=== PATIENT | female | born 1990 | race Caucasian/White ===

== ENCOUNTER 2020-07-16 07:52 | Outpatient (REF) | payer OTHER, SELFPAY ==
[2020-07-17 09:23] LABS: BV Int Neg Control Negative (Negative); BV Int Pos Control Positive (Positive)
[2020-07-17 11:41] LABS: C. trachomatis RNA TMA NOT DETECTED (NOT DETECTED); N. gonorrhoeae RNA TMA NOT DETECTED (NOT DETECTED)
== END 2020-07-16 07:53 | disposition home or self-care (01) ==
LOC: HO.LAB 07:52
PROVIDERS: PCP Internal Medicine; Visit Provider Advanced Practice Midwife
DX: Z01.419 Encounter for gynecological examination (general) (routine) without abnormal findings (principal); N89.8 Other specified noninflammatory disorders of vagina; E66.9 Obesity, unspecified; Z68.31 Body mass index [BMI] 31.0-31.9, adult; Z86.69 Personal history of other diseases of the nervous system and sense organs; Z20.2 Contact with and (suspected) exposure to infections with a predominantly sexual mode of transmission
CPT/HCPCS: 36415; 87480; 87491; 87510; 87591; 87660; 88142

== ENCOUNTER 2020-12-14 09:15 | Outpatient (REF) | payer OTHER, SELFPAY | END 2020-12-14 09:16 | disposition home or self-care (01) | LOC: HO.LAB 09:15 | PROVIDERS: Visit Provider Nurse Practitioner Family | DX: N39.0 Urinary tract infection, site not specified (principal) | CPT/HCPCS: 87086 ==

== ENCOUNTER 2021-07-18 08:15 | Outpatient (REF) | payer OTHER, SELFPAY ==
[2021-07-18 15:32] LABS: CT PCR NOT DETECTED (Not Detect.)
[2021-07-18 15:33] LABS: NG PCR NOT DETECTED (Not Detect.)
[2021-07-19 09:41] LABS: BV Int Neg Control Negative (Negative); BV Int Pos Control Positive (Positive)
== END 2021-07-18 08:16 | disposition home or self-care (01) ==
LOC: HO.LAB 08:15
PROVIDERS: PCP Internal Medicine; Visit Provider Advanced Practice Midwife
DX: Z01.411 Encounter for gynecological examination (general) (routine) with abnormal findings (principal); N89.8 Other specified noninflammatory disorders of vagina
CPT/HCPCS: 87480; 87491; 87510; 87591; 87660

== ENCOUNTER 2021-12-09 17:01 | Outpatient (REF) | payer OTHER, SELFPAY ==
[2021-12-10 09:11] LABS: BV Int Neg Control Negative (Negative); BV Int Pos Control Positive (Positive)
== END 2021-12-09 17:02 | disposition home or self-care (01) ==
LOC: HO.HMGCLNP 17:01
PROVIDERS: Visit Provider Physician Assistant
DX: N39.0 Urinary tract infection, site not specified (principal)
CPT/HCPCS: 87086; 87480; 87510; 87660

== ENCOUNTER 2022-07-31 09:24 | Outpatient (REF) | payer OTHER, SELFPAY ==
[2022-07-31 18:38] LABS: CT PCR NOT DETECTED (Not Detect.); NG PCR NOT DETECTED (Not Detect.)
[2022-08-01 11:14] LABS: BV Int Neg Control Negative (Negative); BV Int Pos Control Positive (Positive)
[2022-08-02 03:19] LABS: HPV mRNA E6/E7 rflx Detected (Not Detected)
[2022-08-16 07:54] LABS: HPV 16 RNA NOT DETECTED (NOT DETECTED)
== END 2022-07-31 09:25 | disposition home or self-care (01) ==
LOC: HO.LNP 09:24
PROVIDERS: PCP Internal Medicine; Visit Provider Advanced Practice Midwife
DX: Z01.419 Encounter for gynecological examination (general) (routine) without abnormal findings (principal); E66.9 Obesity, unspecified; Z86.69 Personal history of other diseases of the nervous system and sense organs; Z20.2 Contact with and (suspected) exposure to infections with a predominantly sexual mode of transmission
CPT/HCPCS: 0353U; 87480; 87510; 87624; 87625; 87660; 88142

== ENCOUNTER 2022-09-04 14:02 | Outpatient (REF) | payer OTHER, SELFPAY ==
[2022-09-05 04:09] LABS: Syphilis Screen Nonreactive (Nonreactive)
[2022-09-05 04:47] LABS: HBsAGNum1 0.33 S/CO (0.00-0.99); HIV AB/AG Nonreactive (Nonreactive); HIV Num 1 0.07 S/CO (0.00-0.99); Hepatitis B Surface Antigen Negative (Negative); ~HepC Num1 0.12 S/CO (0.00-0.79); ~Hepatitis C Antibody Nonreactive (Nonreactive)
== END 2022-09-04 14:03 | disposition home or self-care (01) ==
LOC: HO.LAB 14:02
PROVIDERS: PCP Internal Medicine; Visit Provider Advanced Practice Midwife
DX: Z11.4 Encounter for screening for human immunodeficiency virus [HIV] (principal); E66.9 Obesity, unspecified; Z86.69 Personal history of other diseases of the nervous system and sense organs
CPT/HCPCS: 36415; 86780; 86803; 87340; 87389

== ENCOUNTER 2022-09-17 13:43 | Outpatient (REF) | payer OTHER, SELFPAY ==
--- NOTE | ~2022-09-17 | MM_ITS ---
EXAMINATION: MM DIAGNOSTIC DIGITAL BREAST TOMOSYNTHESIS, BILATERAL US DIAGNOSTIC ULTRASOUND BREAST, LEFT CLINICAL INFORMATION: 31-year-old with 6 month history palpable concern anterior upper inner left breast. Some intermittent pain and tenderness with menses. No erythema. No discharge. Family history breast cancer maternal grandmother, maternal aunt. The lifetime risk of breast cancer based on the Tyrer-Cuzick Model is 23%. COMPARISON: No prior mammography. Comparison made with prior diagnostic right breast ultrasound 01/09/2020. TECHNIQUE: Digital breast tomosynthesis is performed in both the craniocaudal and mediolateral oblique views along with computer-aided detection (CAD). Synthesized 2D images are generated from the tomosynthesis. Ultrasound left breast is targeted to the area of clinical concern upper inner quadrant. Grayscale imaging and color Doppler are performed without and with harmonics. Patient is able to point to area of concern at time of imaging. FINDINGS: Mammography: The breasts are heterogeneously dense, which may obscure small masses (ACR BI-RADS breast composition Category c). There is a smooth oval circumscribed 1 cm nodular asymmetry medial left breast on CC tomography corresponding to the area of palpable concern. The remainder the bilateral breasts show no significant mass, architectural abnormality, or abnormal calcifications. The axilla and skin contours are unremarkable. No skin thickening or coarsening of the Heriberto's ligaments. Ultrasound: Ultrasound demonstrates a solid oval circumscribed macrolobulated nodule near site of clinical palpable concern and corresponding to the mammographic finding 9:00 position 4 cm from nipple measuring approximately 1.2 x 0.6 x 1.1 cm. Long axis is parallel with the skin. There is no increased or decreased through transmission of sound. There is some scattered internal color flow. Finding most likely represents a fibroadenoma. There is a dominant simple cyst adjacent to the probable fibroadenoma measuring approximately 2.0 x 1.5 cm. This has a branching component measuring approximately 1.5 x 1.1 cm. The cysts show increased through-transmission of sound and no associated color flow. There are other smaller scattered simple cysts in the interrogated areas under 1 cm. No skin thickening or edema tracking in soft tissue planes. Results and management options are discussed with the patient at time of visit. MM/MM tomosynthesis diagnostic BI IMPRESSION: Left: -Solid mass upper inner quadrant near area of palpable concern likely fibroadenoma measuring 1.2 cm. -Scattered simple cysts left breast, largest adjacent to probable fibroadenoma) measuring 2 cm. Right: -No mammographic evidence of malignancy. ASSESSMENT: BI-RADS 3: Probably Benign RECOMMENDATION: Targeted left breast ultrasound in 6 months. This patient's information was entered into a reminder system with a target due date for their next mammogram.
== END 2022-09-17 13:44 | disposition home or self-care (01) ==
LOC: HO.MAMMO 13:43
PROVIDERS: PCP Internal Medicine; Visit Provider Advanced Practice Midwife
DX: N64.89 Other specified disorders of breast (principal)
CPT/HCPCS: 76642; 77062; 77066

== ENCOUNTER 2023-02-24 10:58 | Outpatient (AMB) | payer OTHER, SELFPAY ==
--- NOTE | 2023-02-24 13:32 | MHC.OFFWIV ---
Intake Vital Signs 02/24/23 13:34 Weight 202 lb BP 110/70 Blood Pressure Location Rt brachial Position Sitting Pulse 86 Pulse Source Pulse Oximeter Temp 98.1 F Temp Source Oral Pulse Oximetry (%) 96 Oxygen Delivery Method Room Air Intake Visit Reasons: EP, sore throat, cough, chest tightness Intake Note: Patient here for cough, sore throat and difficulty breathing. She states symptoms started yesterday. Patient Tobacco Use Status: Never used Tobacco Allergies sulfamethoxazole Allergy (Unknown, Verified 02/24/23 13:33) Unknown Do you need a note to return to daycare/school/sports/work: No HPI HPI Comments History of Present Illness Details 32-year-old female who presents sore throat difficulty swallowing. Denies fever chills does endorse some mild shortness of breath. 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[employer] Sexual 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/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 Gender identity: Female Cognitive needs: No Hearing needs: No Vision needs: No Female Reproductive History Menstrual Age of Menarche: 14 Review of Systems ENT Reports sore throat Resp Reports cough Physical Exam Vital Signs: Last Vital Signs Temp 98.1 F 02/24/23 13:34 Pulse 86 02/24/23 13:34 BP 110/70 02/24/23 13:34 Pulse Ox 96 02/24/23 13:34 Oxygen Delivery Method Room Air 02/24/23 13:34 Const General: healthy appearing, comfortable, no acute distress and alert Orientation/consciousness: patient oriented x3 Limitations: no limitations HEENT Other: Stridor uvula midline mild erythema the posterior pharynx no muffled voice Head: Yes normal to inspection Ears: hearing grossly normal bilaterally Resp Effort & Inspection: normal respiratory effort and able to speak in complete sentences Auscultation: clear to auscultation bilaterally Cardio Rate: regular rate Skin General skin exam: no rashes or lesions noted Neuro General: patient oriented x3 Extrem General: Yes normal to inspection Results AMB Rapid Strep AMB Rapid Strep Negative Last Edit by YAYA Jimenez on 02/24/23 13:43 Results Reviewed Results Reviewed: Laboratory Last Values Strep Scn Rapid Clinic Negative 02/24/23 13:40 Assessment & Plan Assessment & Plan (1) Pharyngitis: Code(s): J02.9 - Acute pharyngitis, unspecified Qualifiers: Pharyngitis/tonsillitis etiology: unspecified etiology Qualified Code(s): J02.9 - Acute pharyngitis, unspecified Plan: VSS. exam notable for Stridor uvula midline mild erythema the posterior pharynx no muffled voice. Rapid strep negative. Recommend continue symptomatic treatment Discharge instructions, follow up and treatment are discussed with patient in my usual fashion. Alternatives in treatment are also discussed. The patient will return for worsening symptoms or as needed. Advised that any labs/imaging ordered will be followed up on and contact made if further treatment needed. Counseled that patient's condition may require further evaluation and/or treatment. Symptoms of concern for worsening disorder discussed in detail in my customary manner. Patient does verbalize understanding of the plan, there are no apparent barriers to communication. The patient is given the opportunity to ask questions and have them answered to his/her satisfaction Orders: Orders AMB Rapid Strep Screen 02/24/23 Z13.9 - Encounter for screening, unspecified Medications: New albuterol sulfate 90 mcg/actuation 2 puffs inhalation Q6H PRN 6.7 grams 0RF shortness of breath or wheezing dexamethasone 10 mg (5 x 2 mg) PO DAILY 1 day 5 tabs 0RF benzonatate 100 mg PO BID PRN 10 caps 0RF cough Coding Level of Care Code Est Pt Level 3 (31440) Diagnoses Pharyngitis, unspecified etiology J02.9 Pharyngitis/tonsillitis etiology: unspecified etiology
[2023-02-24 13:34] VITALS: BP 110/70; PULSE 86; TEMP 36.7; O2SAT 96
== END 2023-02-24 13:58 | disposition home or self-care (01) ==
PROVIDERS: PCP Internal Medicine; Visit Provider Physician Assistant
DX: J02.9 Acute pharyngitis, unspecified (principal)
CPT/HCPCS: 87880; 99213

== ENCOUNTER 2023-03-25 11:20 | Outpatient (REF) | payer OTHER, SELFPAY ==
--- NOTE | ~2023-03-25 | US_ITS ---
EXAMINATION: US DIAGNOSTIC ULTRASOUND BREAST, LEFT CLINICAL INFORMATION: Follow-up cyst and solid nodule left breast approximate 9:00 axis. COMPARISON: 09/17/2022 ultrasound left breast. 09/17/2022 mammography. TECHNIQUE: Ultrasound of the breast is performed with real-time camara scale imaging and color Doppler. Attention was given to the 9:00 axis to follow-up previous findings. FINDINGS: There is a simple cyst present measuring 8 mm in diameter, significantly smaller than previously, where it measured approximately 2.0 cm. This is benign and no further follow-up recommended. Abutting the simple cyst is a circumscribed mildly hypoechoic oval mass, measuring 1.2 x 0.6 x 1.2 cm (previously measuring 1.1 x 0.6 x 1.1 cm. Apparent enlargement is minimal and most likely reflects differences in measurement technique. It appears stable grossly. It has through transmission, and no internal color Doppler signal. It is well-circumscribed. This has features most suggestive of benign fibroadenoma or variant. It remains unchanged. US/US breast LT limited mamm only IMPRESSION: No significant interval change in the probably benign fibroadenoma or variant in the 9:00 axis of the right breast as detailed. 1 year interval follow-up diagnostic ultrasound recommended to ensure stability. ASSESSMENT: BI-RADS 3: Probably Benign RECOMMENDATION: Diagnostic mammography at time of next annual exam, due in 12 months. This patient's information was entered into a reminder system with a target due date for their next mammogram.
== END 2023-03-25 11:21 | disposition home or self-care (01) ==
LOC: HO.MAMMO 11:20
PROVIDERS: PCP Internal Medicine; Visit Provider Internal Medicine
DX: R92.2 Inconclusive mammogram (principal)
CPT/HCPCS: 76642

== ENCOUNTER → 2023-03-25 11:30 | Outpatient (BNV) | payer OTHER, SELFPAY | PROVIDERS: PCP Internal Medicine; Visit Provider Radiology Diagnostic Radiology | DX: D24.2 Benign neoplasm of left breast (principal) | CPT/HCPCS: 76642 ==

== ENCOUNTER 2023-05-15 08:55 | Outpatient (REF) | payer OTHER, SELFPAY ==
[2023-05-20 12:44] LABS: CT PCR NOT DETECTED (Not Detect.); NG PCR NOT DETECTED (Not Detect.)
== END 2023-05-15 08:56 | disposition home or self-care (01) ==
LOC: HO.LNP 08:55
PROVIDERS: PCP Internal Medicine; Visit Provider Advanced Practice Midwife
DX: N93.0 Postcoital and contact bleeding (principal)
CPT/HCPCS: 0353U

== ENCOUNTER → 2023-05-15 08:55 | Outpatient (AMB) | payer OTHER, SELFPAY ==
--- NOTE | 2023-05-15 08:56 | A.OFFVIS_ITS ---
Intake Vital Signs 05/15/23 08:57 Height 5 ft 8 in Weight 201 lb BMI 30.6 BP 112/68 Intake Visit Reasons: ? yeast Intake Note: lingering cramping and feeling wet and moist with a slight odor and last time having intercourse she started bleeding a lot. 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 yeast HPI Details Patient is here because she has and unusual discharge for her that has a little bit of an odor it did have an worse odor previous and she did have much more of it just sort of feels wet. There was 1 episode after her. In this month when she was having intercourse and it was painful and she bled after it she actually also remembers that she was having some kind of cramping feeling as the intercourse was proceeding she has had sex since with no difficulty since she is wondering about BV but is open to testing for all STIs she is not having any vaginal itching or burning that would be consistent with yeast at all if she does get a prescription for an antibiotic she is requesting a prescription for yeast because she often gets yeast after treatment with antibiotics. She is not contraceptive thing she is open to sometime in the future she and her boyfriend are talking about it and currently using withdrawal and her happy with that. 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[place] Sexual 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/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 Gender identity: Female Cognitive needs: No Hearing needs: No Vision needs: No Female Reproductive History Menstrual Age of Menarche: 14 Duration of menses: 6-7 days Date of last menstrual period: 04/20/23 control method: none Total pregnancies: 0 Date of last pap smear: 07/31/22 (+HPV) History of abnormal pap smear: Yes Physical Exam Vital Signs: Last Vital Signs BP 112/68 05/15/23 08:57 BMI result Body Mass Index 30.6 Other: Slightly adherent whitish discharge that could either be normal for luteal phase or consistent with mild BV as well. Nulliparous cervix pink did not bleed no other areas that appear to be friable. Cervix nulliparous long close thick mobile uterus midposition mobile nontender not enlarged adnexa nontender good tone with Kegel. External Female Exam: normal external appearance Speculum Exam - Vagina: normal appearance of the vagina and normal vaginal discharge Speculum Exam - Cervix: normal appearance of the cervix Bimanual exam- vagina & uterus: normal bimanual exam, uterine size normal, consistency normal, uterine mobility normal, uterine shape normal and non-tender Bimanual Exam- Adnexa, other: normal adnexae, no masses and No adnexal tenderness Assessment & Plan Assessment & Plan (1) Cervical cancer screening: Comment: Negative Pap 2014 2017 2020, ? Whitish spots on cervix 07/31/2022 Pap with HPV co testing done., HPV is positive, but Pap is negative-per [facility] she should repeat her Pap next year. Code(s): Z12.4 - Encounter for screening for malignant neoplasm of cervix (2) Screen for sexually transmitted diseases: Code(s): Z11.3 - Encounter for screening for infections with a predominantly sexual mode of transmission (3) Problematic vaginal discharge: Code(s): N89.8 - Other specified noninflammatory disorders of vagina (4) Bleeding after intercourse: Comment: One time mid May 09, it was also painful that 1 time only. Code(s): N93.0 - Postcoital and contact bleeding Plan ---Discussed the current research around the phenomena of bacterial vaginosis, and the many factors involved in the increase and change in the prevalence of certain bacteria in the vagina, that contribute to the clingy discharge, the fishy malodor, and the discomfort, that many women experience very frequently in their lives. Discussed the many factors that can promote it, and current thinking about best options for treatment of both the a 1 time episode, or frequently occurring episodes. Discussed the role of partner condom use. Discussed that previously, treatment was recommended for both partners, but is not currently recommended today in 2020. Discussed the testing involved. Discussed treatment options including Flagyl, metronidazole gel, boric acid capsules and others. Discussed our normal vaginal mikey and the wide variety of abundant bacteria and fungus I and mucus components that may get up in a complex changing environment responding to anything that we put in and substances we may use for cleansing or wiping as well as sexual intercourse and any introduced bacteria and viruses. Discussed the hormonal shifts that happen through a normal menstrual cycle contributing to changes in the vaginal discharge from clear after the the. To clear and white slippery and abundant like egg white around the time of ovulation, followed by a thickening and drying of the scant white mucus afterwards until a new. Comes. All of these changes are responding to the hormonal shifts in our cycle. Also discussed the limitations of our testing, which are testing for the DNA of the following microbes. Currently, one of the tests we have includes a test that tests for Gardnerella, phoenix, and trichomoniasis (which is an STD). The other test we use tests concurrently for the presence of chlamydia and gonorrhea. As both of these are not normal vaginal mikey, but instead are only sexually transmitted they are in fact in STD or STI, and do need to be treated as well as the partner needs to be treated The presence of Gardnerella does not necessarily mean that we have bacterial vaginosis but the syndrome of bacterial vaginosis includes the creamy adherent discharge that clings to the epithelial cells of the vaginal wall and coats the cells with bacteria and Im part fishy odor when the pH of the environment is altered by either menstrual flow urine or semen or other products. If this discharge is also accompanied by itching and discomfort and any other symptoms than it is worth treating . The presence of Phoenix alone does not necessarily mean a yeast infection but if there is itching burning vaginal redness and irritation then then that is an indication of a yeast infection and is definitely worth treating. Both of these conditions can be in part prevented by use of cotton under clothing, avoidance of tight clothing in general allowing air to vaginal areas and vulva avoidance of other soaps and scented products and chemicals, and condom use. In addition avoidance of menstrual sanitary products like pads and panty liners can contribute to better health as well. full discussion of all of the above she was completely nontender on exam today and there was nothing very obvious since this is the holiday weekend I am offering her the treatment of treating her for bacterial vaginosis and I offered her the choice of treatment as well. In her experience when she has been on any antibiotic in the past she has ended up with a yeast infection so she is requesting a prescription for Diflucan in case she did it gets it but she will not use it unless she really has symptoms of a yeast infection. She goes into [facility] all day long so is not comfortable with cream type treatments because it will increase the mass for her. Also we discussed her history of HPV on the Pap smear and follow-up for that and she is going to [place] so double-check whether not she got the Gardasil vaccine even though she now has the HPV virus and we will see her when she is due for her annual and repeat the Pap with Co testing them. I recommend condoms for at least the next couple of weeks she and her partner have been using withdrawal they are beginning the discussion of being open to . Orders: Orders CT NG by PCR Today N93.0 - Postcoital and contact bleeding Bacterial Vaginosis Panel Today N93.0 - Postcoital and contact bleeding Medications: New fluconazole may repeat second dose 72 hrs after first dose if symptoms persist 150 mg PO Q3D 2 doses 2 tabs 0RF metronidazole 500 mg PO Q12H 14 tabs 0RF Coding Level of Care Code Est Pt Level 3 (45201) Diagnoses Cervical cancer screening Z12.4 Screen for sexually transmitted diseases Z11.3 Problematic vaginal discharge N89.8 Bleeding after intercourse N93.0
[2023-05-15 08:57] VITALS: BP 112/68; BMI 30.6
== END ==
LOC: HO.HWSM 08:55
PROVIDERS: PCP Internal Medicine; Visit Provider Advanced Practice Midwife
DX: Z12.4 Encounter for screening for malignant neoplasm of cervix (principal); Z11.3 Encounter for screening for infections with a predominantly sexual mode of transmission; N89.8 Other specified noninflammatory disorders of vagina; N93.0 Postcoital and contact bleeding
CPT/HCPCS: 99213

== ENCOUNTER 2023-06-26 11:29 | Outpatient (AMB) | payer OTHER, SELFPAY ==
[2023-06-26 11:34] VITALS: BP 122/70; PULSE 82; O2SAT 100; BMI 31.9
--- NOTE | 2023-06-26 11:34 | A.OFFPC_ITS ---
Vital Signs 06/26/23 11:34 Height 5 ft 8 in Weight 210 lb BMI 31.9 BP 122/70 Blood Pressure Location Lt brachial Position Sitting Pulse 82 Pulse Source Pulse Oximeter Pulse Oximetry (%) 100 Oxygen Delivery Method Room Air Intake Visit Reasons: f/u Intake Note: Patient is here to follow up on [symptoms]. Appeals Court Associate Justice Required: No Allergies sulfamethoxazole Allergy (Unknown, Verified 06/26/23 11:59) Unknown Medication List - Last Reconciled 06/26/23 by Charlie Naylor MD albuterol sulfate 90 mcg/actuation 2 puffs inhalation Q6H PRN Tobacco use date assessed: 06/26/23 Dental Screening Dental Screen Date: 06/26/23 Did you have a dental visit in the last 12 months?: Yes Did you have a dental problem in the last 6 months where you did not have access to dental care?: No Was dental information given to patient?: Patient has dentist HPI f/u HPI Details Patient comes in today for her follow up visit - was last seen by me over 3 years ago on 12/01/2019 States that she still has on and off migraine headaches but states that her headaches occur mostly just during the days leading up to and during her monthly menstrual periods and hardly bother her during the rest of the month States that she has just been taking OTC Ibuprofen at 400 mg PRN when her headaches occur and often times just sleeps them off States that she feels okay otherwise She denies any headaches or dizziness Denies any chest pains, no SOB No nausea/vomiting, no abdominal pain No change in bowel habits noted PFSH Medical History Obesity (BMI 30-39.9) Asthma Migraine without aura Surgical History No pertinent past surgical history Family History Father Alive and well Mother Hypertension Maternal Grandmother Breast cancer Maternal Aunt Breast cancer Maternal Grandfather Stomach cancer Family/Other Ovarian cancer Social History Alcohol intake: never Patient Tobacco Use Status: Never used Tobacco service: No Current occupational status: employed 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 1. Little interest or pleasure in doing things: not at all 2. Feeling down, depressed, or hopeless: not at all 3. Trouble falling or staying asleep, or sleeping too much: not at all 4. Feeling tired or having little energy: not at all 5. Poor appetite or overeating: not at all 6. Feeling bad about yourself - or that you are a failure or have let yourself or your family down: not at all 7. Trouble concentrating on things, such as reading the newspaper or watching television: not at all 8. Moving or speaking so slowly that other people could have noticed. Or the opposite - being so fidgety or restless that you have been moving around a lot more than usual: not at all 9. Thoughts that you would be better off or of hurting yourself in some way: not at all Total score: 0 Depression Screening Interpretation: Negative Depression Screening Done: Yes 91014 - PHQ-9 Billing: Yes Source: Developed by Drs. Forrest Shelton, Catrina Henderson, Lance Mata and colleagues, with an educational lachelle from [employer]. Thrive Questionnaire Date Thrive assessed: 06/26/23 I am a: Patient What is your living situation today?: I have a steady place to live Within the past 12 months, did the food you bought not last and you didn't have the money to get more?: Never true Within the past 12 months, did you worry whether your food would run out before you got money to buy more?: Never true Do you have trouble paying for medicines?: No Do you have trouble getting transportation to medical appointments?: No Do you have trouble paying your heating and electricity bill?: No Do you have trouble taking care of your child, family member or friend?: No Do you have trouble with day-to-day activities such as bathing, preparing meals, shopping, managing finances, etc.?: No Are you currently unemployed and looking for a job?: No Are you interested in more education?: No Currently or been in a relationship where the following occur: no concerns reported THRIVE Score: 0 AUDIT C Alcohol Use Questionnaire (AUDIT-C) 1. How often do you have a drink containing alcohol?: 2-4 times a month 2. How many drinks containing alcohol do you have on a typical day when you are drinking?: 1 or 2 3. How often do you have six or more drinks on one occasion?: Never Total Score: 2 Score Reviewed/Action Taken: Yes MAX-7 AMB Questionnaire MAX-7 Date MAX - 7 assessed: 06/26/23 Feeling nervous, anxious, or on edge: 0 = Not at all Not being able to stop or control worryin = Not at all Worrying too much about different things: 0 = Not at all Trouble relaxin = Not at all Being so restless that it is hard to sit still: 0 = Not at all Becoming easily annoyed or irritable: 0 = Not at all Feeling afraid as if something awful might happen: 0 = Not at all Total MAX-7 score (0-4 normal; 5-9 mild; 10-14 moderate; 15-21 severe): 0 Source: Developed by Drs. Forrest Shelton, Catrina Henderson, Lance Mata and colleagues, with an educational lachelle from [employer]. Review of Systems Const Denies chills, Denies fatigue, Denies fever(s) and Reports headache(s) (on and off, occurring mostly during her menstrual periods) Eyes Reports photophobia (only when (+) headaches) ENT Denies dysphagia, Denies dizziness, Denies otalgia, Reports headache(s) (on and off, occurring mostly during her menstrual periods), Denies neck pain, Denies odynophagia and Denies sore throat Card Denies chest pain, Denies palpitations and Denies dyspnea Resp Denies cough and Denies dyspnea GI Denies abdominal pain, Denies constipation, Denies dysphagia, Denies heartburn, Denies diarrhea, Reports nausea (occasionally, when her migraine headaches occur), Denies odynophagia and Denies vomiting Denies difficulty voiding, Denies nocturia, Denies dysuria and Denies urinary urgency Musc Denies neck pain Skin/Breast Denies rash Neuro Denies dizziness and Reports headache(s) (on and off, occurring mostly during her menstrual periods) Endo Denies fatigue and Denies palpitations Physical exam (Primary Care) Vital Signs: Last Vital Signs Pulse 82 06/26/23 11:34 BP 122/70 06/26/23 11:34 Pulse Ox 100 06/26/23 11:34 Oxygen Delivery Method Room Air 06/26/23 11:34 BMI result Body Mass Index 31.9 Tobacco/Smoking Status: Tobacco use Status Tobacco use date assessed 06/26/23 06/26/23 11:39 Patient Tobacco Use Status Never used Tobacco 06/26/23 11:39 Depression Screening Interpretation: Negative Thrive Assessment: Date of Thrive Assessment Date Thrive assessed 12/09/21 06/26/23 11:39 Currently or been in a relationship where the following occur: no concerns reported Const General: no acute distress and alert HENMT Ears: TM's normal bilaterally and EAC's normal Throat: Yes posterior oropharynx normal and Yes tonsils normal (no TP congestion) Eyes Direct Ophthalmoscopy: photophobia (only when (+) headaches) Neck Neck: Yes no lymphadenopathy and Yes supple Resp Auscultation: clear to auscultation bilaterally, no rales and no wheezes Cardio Rate: regular rate Rhythm: regular rhythm Heart sounds: no murmurs GI Palpation (GI): Soft to palpation, nontender and No hepatosplenomegaly present Skin General skin exam: no rashes or lesions noted Extrem General: Yes no clubbing, cyanosis or edema Assessment and Plan Assessment & Plan (1) Migraine without aura: Code(s): G43.009 - Migraine without aura, not intractable, without status migrainosus Qualifiers: Status migrainosus presence: without status migrainosus Intractability: not intractable Qualified Code(s): G43.009 - Migraine without aura, not intractable, without status migrainosus Plan: Her migraine headaches seem to be mostly menstrual migraine Will start her on a trial of Fioricet PRN for her headaches (2) Asthma: Code(s): J45.909 - Unspecified asthma, uncomplicated Qualifiers: Asthma severity: mild Asthma persistence: intermittent Asthma complication type: uncomplicated Qualified Code(s): J45.20 - Mild intermittent asthma, uncomplicated Plan: Appears controlled/stable as she hardly has had to use her rescue inhaler Continue Albuterol HFA 1 to 2 inhalations Q 6 hours PRN (3) Obesity (BMI 30-39.9): Code(s): E66.9 - Obesity, unspecified Plan: Reinforced diet/exercise as tolerated/lose weight Plan To return in 4 months for her annual physical examination Have reminded patient to get her labs ordered today done BEFORE she returns for her annual physical in a few months Orders: Orders 2 Lipid Panel 4 Months E78.00 - Pure hypercholesterolemia, unspecified TSH reflex Free T4 4 Months E78.00 - Pure hypercholesterolemia, unspecified, Z00.00 - Encounter for general adult medical examination without abnormal findings Vitamin D 25-OH Total 4 Months E55.9 - Vitamin D deficiency, unspecified, Z00.00 - Encounter for general adult medical examination without abnormal findings Hemoglobin A1c 4 Months E11.9 - Type 2 diabetes mellitus without complications, Z00.00 - Encounter for general adult medical examination without abnormal findings Comprehensive [facility]. Panel Fast 4 Months E78.00 - Pure hypercholesterolemia, unspecified Complete Blood Count Auto Diff 4 Months D64.9 - Anemia, unspecified UA CC w/rflx Micro + Cult 4 Months R30.0 - Dysuria, Z00.00 - Encounter for general adult medical examination without abnormal findings Medications: New qacfbwqgph-vtwvfhprtfatr-uefz 50-300-40 mg (Fioricet) 1 cap PO TID PRN 30 caps 3RF headache Coding Level of Care Code Est Pt Level 3 (59174) Diagnoses Migraine without aura and without status migrainosus, not intractable G43.009 Status migrainosus presence: without status migrainosus Intractability: not intractable Mild intermittent asthma without complication J45.20 Asthma severity: mild Asthma persistence: intermittent Asthma complication type: uncomplicated Obesity (BMI 30-39.9) E66.9
== END 2023-06-26 12:25 | disposition home or self-care (01) ==
PROVIDERS: PCP Internal Medicine; Visit Provider Internal Medicine
DX: G43.009 Migraine without aura, not intractable, without status migrainosus (principal); J45.20 Mild intermittent asthma, uncomplicated; E66.9 Obesity, unspecified; Z68.31 Body mass index [BMI] 31.0-31.9, adult
CPT/HCPCS: 99213

== ENCOUNTER 2023-07-31 08:54 | Outpatient (AMB) | payer OTHER, SELFPAY ==
[2023-07-31 09:07] VITALS: BP 112/66; BMI 31.3
--- NOTE | 2023-07-31 09:07 | A.OFFVIS_ITS ---
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 Her last menstrual period was June 23. This she is very happy and says her 's ecstatic her WILLIAM by her dates would be March 31 and this would make her 5 weeks and 2 days today. She had a little nausea last night she woke up with the cold and is masking. She and her are caring for a 3-month-old foster baby who was exposed to substances and was in the NICU on morphine for a while and they visited with the baby in the NICU and have been home with the baby this week bonding. She says it has a wonderful experience. 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 She is very happy about the she does have lots of questions about what she can take for various things such as colds and what to avoid etc. questions such as hair dye and other things. Has been thinking about where she would go for care and delivery and has been pondering options including [facility] and all options. 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 Salgado for plan/possible removal. Normal vaginal exam with normal clear scant discharge cervix nulliparous friable at os with above polyp which measures about 2 cm extending from os uterus is globular consistent with about 5 weeks gestation midposition nontender adnexa nontender very good muscle tone. External Female Exam: normal external appearance Speculum Exam - Vagina: normal appearance of the vagina and normal vaginal discharge Speculum Exam - Cervix: normal appearance of the cervix Bimanual exam- vagina & uterus: normal bimanual exam, uterine size normal, consistency normal, uterine mobility normal, uterine shape normal and non-tender Bimanual Exam- Adnexa, other: normal adnexae, no masses and No adnexal tenderness Results AMB Test Urine AMB Test Urine Positive Last Edit by WILBUR Solano on 07/31/23 10:04 Results Reviewed Results Reviewed: Laboratory Last Values Tst Clinic Positive 07/31/23 10:01 Name: Cynthia Means Age/Sex: 31/F Attending: Sirena Munoz CNM : 1990 Submitted by: Sirena Munoz CNM Copies to: Charlie Naylor MD MR #: [id number] Status: DEP REF Collected: 07/31/22 Location: [facility].LNP Received: 07/31/22 Interpretation Satisfactory for evaluation. Negative for intraepithelial lesion or malignancy. Inflammation with associated cellular changes. HPV mRNA E6/E7: DETECTED This assay detects E6/E7 viral messenger RNA (mRNA) from 14 high-risk HPV types (16, 18, 31, 33, 35, 39, 45, 51, 52, 56, 58, 59, 66, 68) HPV Type 16 RNA: Not Detected HPV Type 18/45 RNA: Not Detected HPV testing performed by [facility], [place], [place]. See reference laboratory portion of the EMR for entire report. This case was reviewed intradepartmentally. Clinical Information LMP: 07/21/22 Previous PAP test: 2020, WNL Material Received ThinPrep-Cervical Copies To Charlie Naylor MD [address] [facility] [address] [facility] [address] [place], [place] [id number] Sirena Munoz [address] [place] [address] [place] [id number] Electronically Signed By: Leonard Beck MD 08/19/22 [id number] Patient: Cynthia Means Age/Sex: 31/F MR#: [id number] Page 1 of 2 Assessment & Plan Assessment & Plan (1) Bleeding after intercourse: Comment: One time mid May 09, it was also painful that 1 time only. Code(s): N93.0 - Postcoital and contact bleeding (2) Screen for sexually transmitted diseases: Code(s): Z11.3 - Encounter for screening for infections with a predominantly sexual mode of transmission (3) Cervical cancer screening: Comment: Negative Pap 2014 2017 2020, ? Whitish spots on cervix 07/31/2022 Pap with HPV co testing done., HPV is positive, but Pap is negative-per [facility] she should repeat her Pap next year. Code(s): Z12.4 - Encounter for screening for malignant neoplasm of cervix (4) Early stage of : Code(s): Z34.90 - Encounter for supervision of normal , unspecified, unspecified trimester (5) Nausea and vomiting in : Code(s): O21.9 - Vomiting of , unspecified (6) Cervical polyp: Code(s): N84.1 - Polyp of cervix uteri (7) URI (upper respiratory infection): Comment: Started this a.m. patient is masking I recommend getting tested for COVID discussed that if she were positive for COVID she would be a candidate for antiviral treatment and should check with her doctor. Discussed the non- helpfulness of many uxnj-orw-elpccdz treatments and the importance of fluids rest hydration etc. Code(s): J06.9 - Acute upper respiratory infection, unspecified Plan ---Discussed the current research around the phenomena of bacterial vaginosis, and the many factors involved in the increase and change in the prevalence of certain bacteria in the vagina, that contribute to the clingy discharge, the fishy malodor, and the discomfort, that many women experience very frequently in their lives. Discussed the many factors that can promote it, and current thinking about best options for treatment of both the a 1 time episode, or frequently occurring episodes. Discussed the role of partner condom use. ----I reviewed her feelings about the , I reviewed her menstrual hx, and ob hx, and past medical hx. I reviewed goals of eating well, healthy, avoiding toxins and medications. Goals of moderate wt gain, and continuing to be active. Walking is good exercise. She should speak to any other prescribing providers involved in her care to see if any meds that are prescribed should be continued. drinking plenty of water is a good goal. I reviewed normal early symptoms, and next steps involved in care here. I reviewed that now deliveries are taking place elsewhere. ---I reviewed the patient's medical history and risk factors for . I reviewed her menstrual history and regularity, and reviewed the dating of her last menstrual period and other indicators. I reviewed where she is in this , and what to expect in this early stage of the . ---I reviewed the routines of care. I reviewed the options open to her including care here and that delivery does not occur here; it occurs currently at our referring institution.. I also reviewed the options of receiving care and delivery at [facility], and [facility] or [facility], or the [facility] if appropriate. I reviewed high risk factors that would necessitate a transfer of her care to [facility]. ---I reviewed basic good health and ways to achieve a healthy and goals. I reviewed warning signs that would necessitate calling us: for instance, severe pain, bleeding, severe nausea and vomiting, such that she is unable to keep anything down and feeling weak. ---I discussed next steps, if she continues care here, including scheduling of the mold swabber visit, and blood work, scheduling of the OB physical visit with a care provider, and timing and scheduling of initial ultrasounds and genetic screening and their purpose. I ordered vitamins for her if she did not have them. I reviewed basic healthy goals with diet and active exercise and activity and avoidance of toxic substances.. I reviewed emotional supports and stressors in her life, and family relationship and supports including partnerr She is considering [facility] also given information about some [facility] practices as well as 7 sisters in [place]. For now I am ordering a dating ultrasound and serum hCG. Discussed issues such as early miscarriages. Discussed that will just have a quick visit after the ultrasound if all is well but that I am also referring her to Dr. Salgado for discussion about whether not the cervical polyp should be removed Pap smear was done repeat cultures were done as well as the bimanual which is consistent with a 5 week gestation. Discussed avoidance of toxic chemicals and viruses in for vitamin B6 and Unisom for nausea in and she does not have to take the Unisom if she does not wish to. She has vitamins . Discussed moderation and everything. Many of the oqbi-hxw-jlkxsmd meds that have been touted for use in upper respiratory infections are not all that helpful and basically fluids rest chicken soup hydration are what is needed. Cough drops are fine if her throat is scratchy. I do recommend she get tested for COVID and if she were positive she should contact her primary care provider because she would be a candidate as this is day 1 of her symptoms for antiviral treatment. She did have COVID in the past last year and says it was pretty bad. she said this does not feel like that at all . Orders: Orders AMB HCG Urine Test Today Z32.01 - Encounter for test, result positive CT NG by PCR Today Z11.3 - Encounter for screening for infections with a predominantly sexual mode of transmission Pap Smear Today Z86.19 - Personal history of other infectious and parasitic diseases HCG Quantitative Today N84.1 - Polyp of cervix uteri, N93.0 - Postcoital and contact bleeding, O21.9 - Vomiting of , unspecified, Z11.3 - Encounter for screening for infections with a predominantly sexual mode of transmission, Z12.4 - Encounter for screening for malignant neoplasm of cervix, Z34.90 - Encounter for supervision of normal , unspecified, unspecified trimester US OB pelvic and transvaginal Today N84.1 - Polyp of cervix uteri, N93.0 - Postcoital and contact bleeding, O21.9 - Vomiting of , unspecified, Z11.3 - Encounter for screening for infections with a predominantly sexual mode of transmission, Z12.4 - Encounter for screening for malignant neoplasm of cervix, Z34.90 - Encounter for supervision of normal , unspecified, unspecified trimester Bacterial Vaginosis Panel Today Z11.3 - Encounter for screening for infections with a predominantly sexual mode of transmission Medications: New doxylamine succinate (Unisom (doxylamine)) 25 mg PO BEDTIME PRN 30 tabs 0RF sleep pyridoxine (vitamin B6) 25 mg PO TID 90 tabs 0RF Coding Level of Care Code Est Pt Level 3 (72439) Diagnoses Bleeding after intercourse N93.0 Screen for sexually transmitted diseases Z11.3 Cervical cancer screening Z12.4 Early stage of Z34.90 Nausea and vomiting in O21.9 Cervical polyp N84.1 URI (upper respiratory infection) J06.9
== END 2023-07-31 10:47 | disposition home or self-care (01) ==
LOC: HO.HWS 08:54
PROVIDERS: PCP Internal Medicine; Visit Provider Advanced Practice Midwife
DX: O21.9 Vomiting of pregnancy, unspecified (principal); O99.519 Diseases of the respiratory system complicating pregnancy, unspecified trimester; J06.9 Acute upper respiratory infection, unspecified; Z3A.01 Less than 8 weeks gestation of pregnancy; Z32.01 Encounter for pregnancy test, result positive
CPT/HCPCS: 99213

== ENCOUNTER 2023-07-31 08:54 | Outpatient (REF) | payer OTHER, SELFPAY ==
[2023-08-01 06:36] LABS: CT PCR NOT DETECTED (Not Detect.); NG PCR NOT DETECTED (Not Detect.)
[2023-08-01 15:15] LABS: BV Int Neg Control Negative (Negative); BV Int Pos Control Positive (Positive)
[2023-08-08 19:44] LABS: HPV 16 RNA NOT DETECTED (NOT DETECTED); HPV mRNA E6/E7 rflx Detected (Not Detected)
== END 2023-07-31 08:55 | disposition home or self-care (01) ==
LOC: HO.LNP 08:54
PROVIDERS: PCP Internal Medicine; Visit Provider Advanced Practice Midwife
DX: Z32.01 Encounter for pregnancy test, result positive (principal); Z20.2 Contact with and (suspected) exposure to infections with a predominantly sexual mode of transmission; N93.0 Postcoital and contact bleeding; N84.1 Polyp of cervix uteri; Z86.19 Personal history of other infectious and parasitic diseases
CPT/HCPCS: 0353U; 81025; 87480; 87510; 87624; 87625; 87660; 88142

== ENCOUNTER 2023-08-10 13:26 | Outpatient (REF) | payer OTHER, SELFPAY ==
--- NOTE | ~2023-08-10 | US_ITS ---
EXAMINATION: US OBSTETRICAL ULTRASOUND CLINICAL INFORMATION: Cervical polyp, Positive urine test, now hCG obtained COMPARISON: None available. LMP: 06/23/2023. Gestational age by maternal dates is 6 weeks 6 days. Estimated date of delivery by maternal dates is 03/29/2024. TECHNIQUE: Transabdominal and transvaginal scanning were performed. FINDINGS: There is a single intrauterine gestational sac with visible yolk sac, embryo/fetus, and cardiac activity. There is no significant subchorionic hemorrhage or hematoma. HR: 155 beats per minute. CRL (crown rump length): 0.96 cm (7 weeks 1 day +/- 4 days). WILLIAM (estimated date of delivery): 03/27/2024 +/- 4 days. MATERNAL ADNEXA: The right maternal ovary measures 3.2 x 2.0 x 2.3 cm. The right ovary is normal in appearance. The left ovary is not seen. There is no significant maternal adnexal mass. There is no free fluid within the cul-de-sac US/US OB <= 14 weeks fetus IMPRESSION: 1. Single intrauterine gestation with ultrasound gestational age of 7 weeks 1 day +/- 4 days. Size equals dates. 2. Estimated date of delivery is 03/27/2024 +/- 4 days.
== END 2023-08-10 13:27 | disposition home or self-care (01) ==
LOC: HO.US 13:26
PROVIDERS: PCP Internal Medicine; Visit Provider Advanced Practice Midwife
DX: O26.891 Other specified pregnancy related conditions, first trimester (principal); N39.0 Urinary tract infection, site not specified; Z3A.01 Less than 8 weeks gestation of pregnancy
CPT/HCPCS: 76801

== ENCOUNTER 2023-08-19 14:15 | Outpatient (AMB) | payer OTHER, SELFPAY ==
--- NOTE | 2023-08-19 14:16 | A.OFFVIS_ITS ---
Intake Intake Visit Reasons: TV Ultrasound results Batching Operator Required: No Allergies sulfamethoxazole Allergy (Unknown, Verified 08/19/23 14:16) Unknown Post menopausal: No Patient : Yes HPI TV Ultrasound results HPI Details This is a tele visit to discuss patient's ultrasound and Pap smear and early and recent bout with COVID and everything. I reviewed the ultrasound with her in detail and her Pap smear with her in detail she has a cervical polyp so I had already placed a referral to Dr. Salgado to look at that and possibly remove it and so now with the abnormal Pap smear she will be getting a ?colpo colposcopy with him. She had intended at the discovery review of her to receive care at [facility] and I had given her the full list and she has made her phone calls and made an appointment with a [facility] practice and has the nursing intake appointments as well as her physical visit and even her early ultrasound scheduled. The ultrasound that she had here was for dating and confirmation and it basically agrees with her LMP date within a few days I had stated that by her June 23 LMP she would have an WILLIAM of 11 14 and by the ultrasound that was done 325 at 7 weeks and 1 day they yield an WILLIAM of 03/27/2024 so it is within 4 days. All of this information will be furnish to her new practice so they can included in their management of her . She had a bout of the stomach issue last night so was up using the bathroom most of the night but that has mostly resolved and she said her experience of the COVID was not that bad and she decided not to take the medication she was given (question Paxlovid?). Other than that the nausea and vomiting a is not bad at all and she is feeling fine otherwise she is a bit concerned about the colposcopy coming up and I explained what will probably done be done during that visit and that also she will probably need follow-up afterwards and that all of these record should also go to [facility]. Additionally she shared that she had been getting follow-up for of finding in her breast and her primary care provider had ordered a follow-up ultrasound for her and she believes she has another follow-up coming up as well and I recommend she shared all of these dates and records also with whoever she will be seeing at [facility]. She will be getting all of her care at [facility] She will sign for records when she comes to the office next week for the colposcopy so that all of her pertinent records can be sent to her new practice. Reviewed early care and moderation in dietary intake in general to achieve healthy nutrition without excessive weight gain as that was something that she was concerned about ahead of time. 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[employer] Sexual 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/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 Gender identity: Female Cognitive needs: No Hearing needs: No Vision needs: No Female Reproductive History Menstrual Age of Menarche: 14 control method: none Results Reviewed Results Reviewed: Patient: Cynthia Means MR#: [id number] : 1990 Acct:[id number] Age/Sex: 32 / F ADM Date: 08/10/23 Loc: HO.US Attending Dr: Sirena Munoz CNM Ordering Physician: Sirena Munoz CNM Date of Service: 08/10/23 Procedure(s): US OB <= 14 weeks fetus Accession Number(s): [id number] cc: Charlie Naylor MD; Sirena Munoz CNM~ EXAMINATION: US OBSTETRICAL ULTRASOUND CLINICAL INFORMATION: Cervical polyp, Positive urine test, now hCG obtained COMPARISON: None available. LMP: 06/23/2023. Gestational age by maternal dates is 6 weeks 6 days. Estimated date of delivery by maternal dates is 03/29/2024. TECHNIQUE: Transabdominal and transvaginal scanning were performed. FINDINGS: There is a single intrauterine gestational sac with visible yolk sac, embryo/fetus, and cardiac activity. There is no significant subchorionic hemorrhage or hematoma. HR: 155 beats per minute. CRL (crown rump length): 0.96 cm (7 weeks 1 day +/- 4 days). WILLIAM (estimated date of delivery): 03/27/2024 +/- 4 days. MATERNAL ADNEXA: The right maternal ovary measures 3.2 x 2.0 x 2.3 cm. The right ovary is normal in appearance. The left ovary is not seen. There is no significant maternal adnexal mass. There is no free fluid within the cul-de-sac US/US OB <= 14 weeks fetus IMPRESSION: 1. Single intrauterine gestation with ultrasound gestational age of 7 weeks 1 day +/- 4 days. Size equals dates. 2. Estimated date of delivery is 03/27/2024 +/- 4 days. Dictated By: Cande Ku MD Signed By: <Electronically signed by Cande Ku MD in OV> 08/17/23 0824 DD/ 1548 TD/TT: Cartography Technician: piper: Cynthia Means Age/Sex: 32/F Attending: Sirena Munoz CNM : 1990 Submitted by: Sirena Munoz CNM Copies to: Charlie Naylor MD MR #: [id number] Status: DEP REF Collected: 07/31/23 Location: [facility] Received: 08/03/23 Interpretation General Category: Epithelial cell abnormality. Adequacy: Endocervical component present. Interpretation: Atypical squamous cells of undetermined significance, rare. Abundant acute inflammation and blood. HPV mRNA E6/E7: DETECTED This assay detects E6/E7 viral messenger RNA (mRNA) from 14 high-risk HPV types (16, 18, 31, 33, 35, 39, 45, 51, 52, 56, 58, 59, 66, 68) HPV Type 16 RNA: Not Detected HPV Type 18/45 RNA: Not Detected HPV testing performed by [facility], [place], [place]. See reference laboratory portion of the EMR for entire report. Clinical Information LMP: 06/23/23 Previous PAP test: 07/31/22, HPV Material Received ThinPrep-Cervical Copies To Charlie Naylor MD [address] [place] [address] Sirena Munoz [address] [place] [address] [place] [id number] Electronically Signed By: La Carey 08/12/23 1616 Patient: Cynthia Means Age/Sex: 32/F MR#: [id number] Page 1 of 2 Assessment & Plan Assessment & Plan (1) Cervical polyp: Code(s): N84.1 - Polyp of cervix uteri (2) Cervical cancer screening: Comment: Negative Pap 2014 2017 2020, ? Whitish spots on cervix 07/31/2022 Pap with HPV co testing done., HPV is positive, but Pap is negative-per [facility] she should repeat her Pap next year.; 07/31/2023 Pap = asus w hpv pos, refer for colpo Code(s): Z12.4 - Encounter for screening for malignant neoplasm of cervix (3) Nausea and vomiting in : Code(s): O21.9 - Vomiting of , unspecified (4) Early stage of : Code(s): Z34.90 - Encounter for supervision of normal , unspecified, unspecified trimester Plan This is a tele visit to discuss patient's ultrasound and Pap smear and early and recent bout with COVID and everything. I reviewed the ultrasound with her in detail and her Pap smear with her in detail she has a cervical polyp so I had already placed a referral to Dr. Salgado to look at that and possibly remove it and so now with the abnormal Pap smear she will be getting a ?colpo colposcopy with him. She had intended at the discovery review of her to receive care at [facility] and I had given her the full list and she has made her phone calls and made an appointment with a [facility] practice and has the nursing intake appointments as well as her physical visit and even her early ultrasound scheduled. The ultrasound that she had here was for dating and confirmation and it basically agrees with her LMP date within a few days I had stated that by her June 23 LMP she would have an WILLIAM of 11 14 and by the ultrasound that was done 325 at 7 weeks and 1 day they yield an WILLIAM of 03/27/2024 so it is within 4 days. All of this information will be furnish to her new practice so they can included in their management of her . She had a bout of the stomach issue last night so was up using the bathroom most of the night but that has mostly resolved and she said her experience of the COVID was not that bad and she decided not to take the medication she was given (question Paxlovid?). Other than that the nausea and vomiting a is not bad at all and she is feeling fine otherwise she is a bit concerned about the colposcopy coming up and I explained what will probably done be done during that visit and that also she will probably need follow-up afterwards and that all of these record should also go to [facility]. Additionally she shared that she had been getting follow-up for of finding in her breast and her primary care provider had ordered a follow-up ultrasound for her and she believes she has another follow-up coming up as well and I recommend she shared all of these dates and records also with whoever she will be seeing at [facility]. She will be getting all of her care at [facility]. She will sign for records when she comes to the office next week for the colposcopy so that all of her pertinent records can be sent to her new practice. Reviewed early care and moderation in dietary intake in general to achieve healthy nutrition without excessive weight gain as that was something that she was concerned about ahead of time. Coding Level of Care Code Tele Est Pt Level 3 (75736) Diagnoses Cervical polyp N84.1 Cervical cancer screening Z12.4 Nausea and vomiting in O21.9 Early stage of Z34.90 Time Spent (min) 40 Comment 3 cr/27 video w pt/10 charting
== END 2023-08-19 15:05 | disposition home or self-care (01) ==
LOC: HO.HWSM 14:15
PROVIDERS: PCP Internal Medicine; Visit Provider Advanced Practice Midwife
DX: N84.1 Polyp of cervix uteri (principal); O21.9 Vomiting of pregnancy, unspecified; Z3A.08 8 weeks gestation of pregnancy
CPT/HCPCS: 99213

== ENCOUNTER → 2023-08-19 14:15 | Outpatient (BNVA) | payer OTHER, SELFPAY | PROVIDERS: PCP Internal Medicine; Visit Provider Advanced Practice Midwife ==

== ENCOUNTER 2023-08-27 14:54 | Outpatient (AMB) | payer OTHER, SELFPAY ==
[2023-08-27 14:59] VITALS: BP 112/58; BMI 31.8
--- NOTE | 2023-08-27 14:59 | MHC.OFFVIS ---
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[employer] Sexual 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/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 Gender identity: Female Cognitive needs: No Hearing needs: No Vision needs: No Female Reproductive History Menstrual Age of Menarche: 14 Duration of menses: 6-7 days control method: none Physical Exam Vital Signs: Last Vital Signs BP 112/58 L 08/27/23 14:59 BMI result Body Mass Index 31.8 Office Procedures Colposcopy Before the procedure was started discussed with the patient the procedure, alternatives & all the risks associated with the procedure (bleeding, infection, injury to vagina, bladder, vessels, possible need for transfusion with all its risks) then patient signed the consent The patient is at 9 weeks of gestation Pap smear = ascus/HPV E6/E7 positive, HPV 16/18/45 negative Speculum inserted, acetic acid used Endocervical polyp identified Colposcopy done Transformation zone seen, acetowhite lesions identified at 11+2+4 o?clock, no cervical biopsies taken from and no ECC done. Vaginoscopy of the upper vagina showed no evidence of any aceto-white lesions All questions answered the patient verbalized understanding. Instructed the patient to make an appointment 6 weeks for co testing, colpo/biopsy/ECC and possible removal of a polyp This note was generated with a voice recognition program. Some errors may have been overlooked during the review of this note. Sometimes these errors may affect the content or meaning of a given sentence. 27537-Upgbrjlzne of Cervix including upper vagina Procedure code (CPT) selection complete Assessment & Plan Assessment & Plan (1) ASCUS with positive high risk HPV cervical: Comment: Nine weeks of gestation Code(s): R87.610 - Atypical squamous cells of undetermined significance on cytologic smear of cervix (ASC-US); R87.810 - Cervical high risk human papillomavirus (HPV) DNA test positive Plan: Colposcopy done, see procedure note Recommend co testing with colposcopy biopsy/ECC and treat according (2) Endocervical polyp: Comment: Nine weeks of gestation Code(s): N84.1 - Polyp of cervix uteri Plan: Recommend endocervical polypectomy Orders: Orders AMB Colposcopy Today R87.610 - Atypical squamous cells of undetermined significance on cytologic smear of cervix (ASC-US), R87.810 - Cervical high risk human papillomavirus (HPV) DNA test positive Coding Level of Care Code Procedure Only Diagnoses ASCUS with positive high risk HPV cervical R87.610; R87.810 Endocervical polyp N84.1 CPT Codes Colposcopy - CPT: 83569-Tdmpfpsnsq of Cervix including upper vagina ([id number])
== END 2023-08-27 16:00 | disposition home or self-care (01) ==
PROVIDERS: PCP Internal Medicine; Visit Provider Obstetrics & Gynecology
DX: R87.610 Atypical squamous cells of undetermined significance on cytologic smear of cervix (ASC-US) (principal); R87.810 Cervical high risk human papillomavirus (HPV) DNA test positive; N84.1 Polyp of cervix uteri
CPT/HCPCS: 57452

== ENCOUNTER → 2023-08-27 14:54 | Outpatient (BNVA) | payer OTHER, SELFPAY | PROVIDERS: PCP Internal Medicine; Visit Provider Obstetrics & Gynecology | DX: O99.891 Other specified diseases and conditions complicating pregnancy (principal); N84.1 Polyp of cervix uteri; O26.891 Other specified pregnancy related conditions, first trimester; R87.610 Atypical squamous cells of undetermined significance on cytologic smear of cervix (ASC-US); R87.810 Cervical high risk human papillomavirus (HPV) DNA test positive; Z3A.09 9 weeks gestation of pregnancy | CPT/HCPCS: 57452 ==

== ENCOUNTER 2023-09-21 14:52 | Outpatient (REF) | payer OTHER, SELFPAY | END 2023-09-21 14:53 | disposition home or self-care (01) | LOC: HO.MAMMO 14:52 | PROVIDERS: PCP Internal Medicine; Visit Provider Internal Medicine | DX: Z13.89 Encounter for screening for other disorder (principal) ==

== ENCOUNTER 2023-10-21 10:03 | Outpatient (REF) | payer OTHER, SELFPAY ==
[2023-10-21 10:12] LABS: MANUAL DIFF FLAG NO
[2023-10-21 10:34] LABS: Basophils Percent Auto 0.3 % (0-2); Eosinophils Absolute Auto 0.1 X10*3/uL (0.0-0.4); Eosinophils Percent Auto 1.8 % (0-4); Hematocrit 39.4 % (37.0-47.0); Hemoglobin 13.7 g/dl (12.0-16.0); Imm Gran Abs Auto 0.02 X10*3/uL (0.00-0.03); Imm Gran Pct Auto 0.3 % (0.0-0.4); Lymphocytes Absolute Auto 2.6 X10*3/uL (1.2-4.9); Lymphocytes Percent Auto 35.9 % (20-40); Mean Corpuscular HGB Conc 34.8 g/dl (31.0-35.0); Mean Corpuscular Hemoglobin 31.1 pg (27.0-33.0); Mean Corpuscular Volume 89.5 fL (80.0-98.0); Monocytes Absolute Auto 0.6 X10*3/uL (0.1-1.2); Neutrophils Absolute Auto 3.9 x10*3/uL (2.0-8.3); Neutrophils Percent Auto 53.7 % (45-73); Platelet Count 296 X10*3/uL (160-400); Red Cell Distribution Width 12.3 % (11.0-16.0); White Blood Count 7.3 X10*3/uL (4.8-10.8)
[2023-10-21 10:51] LABS: Estimated Average Glucose 88 mg/dL; Hemoglobin A1c % 4.7 % (<6.0)
[2023-10-21 11:07] LABS: Alanine Aminotransferase 18 U/L (0-31); Albumin Level 4.1 g/dL (3.5-5.0); Alkaline Phosphatase 46 U/L (39-117); Anion Gap 10 (12-20); Aspartate Amino Transferase 21 U/L (5-31); Bilirubin Total 0.9 mg/dL (0.0-1.0); Blood Urea Nitrogen 16 mg/dL (9-16); Calcium 9.1 mg/dL (8.4-10.2); Carbon Dioxide 25 mmol/L (22-29); Chloride 111 mmol/L (96-108); Cholesterol 183 mg/dL (<200); Estimated Glomerular Filt Rate > 60; Glucose Fasting 97 mg/dL (60-99); HDL Cholesterol 45 mg/dL (>40); LDL Cholesterol Calculated 124 mg/dL (<100); Potassium 4.3 mmol/L (3.3-5.1); Sodium 142 mmol/L (135-145); Total Protein 6.6 g/dL (6.5-8.0); Triglycerides 73 mg/dL (<150)
[2023-10-21 11:13] LABS: TSH reflex Free T4 2.68 uIU/mL (0.32-4.0); Vitamin D 25-OH Total 29.2 ng/mL (>30)
[2023-10-21 16:01] LABS: Appearance Urine Clear; Color Urine Yellow; Glucose Urine UA Negative (Negative); Leukocyte Esterase Urine Negative (Negative); Nitrite Urine Negative (Negative); PH 7.5 (5.0-9.0); Urine Blood Negative (Negative); Urine Ketones Negative (Negative); Urine Protein Negative (Neg-Trace)
== END 2023-10-21 10:04 | disposition home or self-care (01) ==
LOC: HO.LAB 10:03
PROVIDERS: PCP Internal Medicine; Visit Provider Internal Medicine
DX: Z00.00 Encounter for general adult medical examination without abnormal findings (principal); E78.00 Pure hypercholesterolemia, unspecified; D64.9 Anemia, unspecified; E55.9 Vitamin D deficiency, unspecified; E11.9 Type 2 diabetes mellitus without complications; R30.0 Dysuria
CPT/HCPCS: 36415; 80053; 80061; 81003; 82306; 83036; 84443; 85025

== ENCOUNTER 2023-10-22 14:13 | Outpatient (REF) | payer OTHER, SELFPAY | END 2023-10-22 14:14 | disposition home or self-care (01) | LOC: HO.LNP 14:13 | PROVIDERS: PCP Internal Medicine; Visit Provider Obstetrics & Gynecology | DX: R87.610 Atypical squamous cells of undetermined significance on cytologic smear of cervix (ASC-US) (principal); R87.810 Cervical high risk human papillomavirus (HPV) DNA test positive | CPT/HCPCS: 57454; 81025; 88305 ==

== ENCOUNTER 2023-10-22 14:13 | Outpatient (AMB) | payer OTHER, SELFPAY ==
[2023-10-22 14:23] VITALS: BP 118/76; BMI 31.5
--- NOTE | 2023-10-22 14:23 | A.OFFVIS_ITS ---
Vital Signs 10/22/23 14:23 Height 5 ft 8 in Weight 207 lb 3.752 oz BMI 31.5 BP 118/76 Intake Visit Reasons: Colposcopy Nurse Staff Industrial Required: No Information Interpreted: non-clinical & clinical Patient Financial Services Specialist: Patient Financial Services Specialist Present (Linda BOWLES) Accompanied by: Spouse Allergies sulfamethoxazole Allergy (Unknown, Verified 10/22/23 14:28) Unknown Is last menstrual period known: Yes Last menstrual period: 10/12/23 HPI Comments Details: Presenting for abnormal Pap smear showing ascus/HPV E6/E7 positive, HPV 16/18/45 negative [facility] Medical History Obesity (BMI 30-39.9) Asthma Migraine without aura Surgical History No pertinent past surgical history Family History Father Alive and well Mother Hypertension Maternal Grandmother Breast cancer Maternal Aunt Breast cancer Maternal Grandfather Stomach cancer Family/Other Ovarian cancer Social History Alcohol intake: never Patient Tobacco Use Status: Never used Tobacco service: No Current occupational status: employed 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 Gender identity: Female Cognitive needs: No Hearing needs: No Vision needs: No Female Reproductive History Menstrual Age of Menarche: 14 Date of last menstrual period: 10/12/23 Review of Systems Const All systems reviewed & are unremarkable except as noted in HPI and below Reports as per HPI and Reports no additional complaints GI Reports no additional complaints Reports no additional complaints Physical Exam Vital Signs: BMI result Body Mass Index 31.5 Office Procedures Colposcopy Colposcopy: Pre-Procedure Counseling: Before beginning the procedure, I conducted comprehensive counseling with the patient. We thoroughly discussed the procedure itself, including its details, alternatives, and all associated risks. This included but not limited to the following complications such as bleeding, infection, and injury to the vagina, bladder, and vessels, as well as the potential need for transfusion with all its associated risks. Subsequently, the patient sign the consent. Pap smear result: Ascus/HPV E6/E7 positive, HPV 16/18/45 negative Urine test in office = Negative Procedure: During the procedure, the following steps were performed: A speculum was inserted, and acetic acid was applied. Colposcopy was conducted, allowing visualization of the transformation zone. Acetowhite lesions were identified at the 5+6+7+9+3 o'clock position. Cervical biopsies were obtained from the 5+6+7+9+3 o'clock position, followed by an endocervical curettage (ECC). Vaginoscopy of the upper vagina revealed no evidence of aceto-white lesions. Hemostasis was achieved using Monsel solution, and the patient tolerated the procedure well. Post-Procedure Instructions: The patient was advised to promptly contact the office or the after hours answering service or go to the emergency room if experiencing a temperature exceeding 100.4?F, abdominal pain, nausea/vomiting, or bleeding. Additionally, the patient was instructed to abstain from vaginal intercourse and bathtub use. The patient confirmed understanding of these instructions. Discharge Instructions: The patient was instructed to schedule a follow-up appointment in 2 weeks for further evaluation and management. Please note that this note was generated using a voice recognition program, and errors may have occurred during hearing healthcare practitioner. 57472-Vmgjmbhtx of cervix including upper vagina with biopsy and ECC Procedure code (CPT) selection complete Results AMB Test Urine AMB Test Urine Negative Last Edit by Linda Ludwig CMA on 14:45 Assessment & Plan Assessment & Plan (1) ASCUS with positive high risk HPV cervical: Code(s): R87.610 - Atypical squamous cells of undetermined significance on cytologic smear of cervix (ASC-US); R87.810 - Cervical high risk human papillomavirus (HPV) DNA test positive Category: Medical Plan: Discussed with the patient the result of her abnormal pap, its significance, risk of progression, persistence, and regression. the false positive/negative rate of a Pap smear as a screening test in detecting cervical cancer and the indication for a diagnostic test -colposcopy, biopsy, endocervical curettage. The patient verbalized understanding and agreed with the plan, all questions answered. Colposcopy/biopsy/ECC done, see procedure note Orders: Orders AMB HCG Urine Test Today Z32.02 - Encounter for test, result negative AMB Colposcopy Today R87.610 - Atypical squamous cells of undetermined significance on cytologic smear of cervix (ASC-US), R87.810 - Cervical high risk human papillomavirus (HPV) DNA test positive Coding Level of Care Code Procedure Only Diagnoses ASCUS with positive high risk HPV cervical R87.610; R87.810 CPT Codes Colposcopy - CPT: 99649-Ojrmembxt of cervix including upper vagina with biopsy and ECC ([id number])
== END 2023-10-22 15:04 | disposition home or self-care (01) ==
PROVIDERS: PCP Internal Medicine; Visit Provider Obstetrics & Gynecology
DX: R87.610 Atypical squamous cells of undetermined significance on cytologic smear of cervix (ASC-US) (principal); R87.810 Cervical high risk human papillomavirus (HPV) DNA test positive; Z32.02 Encounter for pregnancy test, result negative
CPT/HCPCS: 57454

== ENCOUNTER 2023-10-23 12:24 | Outpatient (AMB) | payer OTHER, SELFPAY ==
[2023-10-23 12:37] VITALS: BP 116/80; PULSE 70; O2SAT 98; BMI 33.0
--- NOTE | 2023-10-23 12:37 | A.OFFPC_ITS ---
Vital Signs 10/23/23 12:37 Height 5 ft 8 in Weight 217 lb BMI 33.0 BP 116/80 Blood Pressure Location Lt brachial Position Sitting Pulse 70 Pulse Source Pulse Oximeter Pulse Oximetry (%) 98 Oxygen Delivery Method Room Air Intake Visit Reasons: ANNUAL Information Specialist: Not Required per policy Accompanied by: Self / Same As Patient Allergies sulfamethoxazole Allergy (Unknown, Verified 10/23/23 12:56) Unknown Medication List - Last Reconciled 10/23/23 by Charlie Naylor MD albuterol sulfate 90 mcg/actuation 2 puffs inhalation Q6H PRN rdrwtbcmgn-cvkzptqnbgzij-wprd 50-300-40 mg (Fioricet) 1 cap PO TID PRN Tobacco use date assessed: 06/26/23 Dental Screening Dental Screen Date: 06/26/23 HPI ANNUAL HPI Details Patient comes in today for her annual physical examination States that she feels okay She just saw Dr. Salgado yesterday and had a colposcopy done She denies any headaches or dizziness Denies any chest pains, no SOB No nausea/vomiting, no abdominal pain No change in bowel habits noted She denies any acute urinary symptoms Adds that she has a raised lesion on the right side of her face for years but recently feels that it is getting bigger and she has noticed that something seems to be growing out on top of the lesion Notes that the right side of her face would also feel sore at times but she is not sure if this is related to the lesion on her face Had her pap smear last done back in July 2023 - had atypical squamous cells of undetermined significance and HPV E6 and E7 were detected, which led to her colposcopy yesterday She had her follow up labs done yesterday - to discuss her results She would also like to try one of the new injectable weight loss meds if possible and also like to see weight management as she wants to try losing some weight now and get healthier [facility] Medical History (Updated 10/23/23 @ 13:14 by Charlie Naylor MD) Vitamin D deficiency ASCUS with positive high risk HPV cervical Obesity (BMI 30-39.9) Asthma Migraine without aura Surgical History (Updated 10/23/23 @ 13:02 by Charlie Naylor MD) History of colposcopy Family History Father Alive and well Mother Hypertension Maternal Grandmother Breast cancer Maternal Aunt Breast cancer Maternal Grandfather Stomach cancer Family/Other Ovarian cancer Social History Alcohol intake: never Patient Tobacco Use Status: Never used Tobacco service: No Current occupational status: employed 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 Forrest Shelton, Catrina Henderson, Lance Mata and colleagues, with an educational lachelle from [employer]. Review of Systems Const Denies chills, Denies fatigue, Denies fever(s), Denies headache(s) and Denies malaise Eyes Denies blurry vision, Denies change in vision, Denies irritation and Denies itchy eyes ENT Denies dysphagia, Denies dizziness, Denies otalgia, Denies headache(s), Denies nasal congestion, Denies neck pain, Denies odynophagia, Denies sinus pain and Denies sore throat Card Denies chest pain, Denies rapid heart rate, Denies irregular heart rhythm, Denies palpitations and Denies dyspnea Resp Denies chest congestion, Denies cough, Denies dyspnea and Denies wheezing GI Denies abdominal pain, Denies bloating, Denies constipation, Denies dysphagia, Denies heartburn, Denies diarrhea, Denies nausea, Denies odynophagia and Denies vomiting Denies hematuria, Denies urinary frequency, Denies dysuria, Denies urinary incontinence and Denies urinary urgency Musc Denies back pain, Denies arthralgias, Denies joint swelling, Denies muscle weakness and Denies neck pain Skin/Breast Denies breast pain, Denies breast mass, Denies change in pigmentation, Reports lesions ((+) raised lesion on the right side of the face - see HPI), Denies rash and Denies unusual bruising Neuro Denies dizziness, Denies headache(s) and Denies paresthesias Psych Denies anxiety and Denies depression Endo Denies fatigue and Denies palpitations Galdino/Lymph Denies easy bruising Aller/Immun Denies itchy eyes and Denies wheezing Physical exam (Primary Care) Vital Signs: Last Vital Signs Pulse 70 10/23/23 12:37 BP 116/80 10/23/23 12:37 Pulse Ox 98 10/23/23 12:37 Oxygen Delivery Method Room Air 10/23/23 12:37 BMI result Body Mass Index 33.0 Tobacco/Smoking Status: Tobacco use Status Tobacco use date assessed 06/26/23 10/23/23 12:40 Patient Tobacco Use Status Never used Tobacco 10/23/23 12:40 Thrive Assessment: Date of Thrive Assessment Date Thrive assessed 06/26/23 10/23/23 12:40 Const General: no acute distress, alert and awake Orientation/consciousness: patient oriented x3 HENMT Head: Yes normocephalic and Yes atraumatic Ears: external ears normal, TM's normal bilaterally and EAC's normal General nose exam: No nasal discharge present Face and sinus: Yes normal facial exam and Yes sinuses nontender Teeth and gingiva: dentition normal Throat: Yes posterior oropharynx normal and Yes tonsils normal (no TP congestion) Eyes Eyelids: Yes eyelids normal Conjunctivae: conjunctivae normal Pupils: Equal, round and reactive pupils present EOM: EOMs intact bilaterally Neck Neck: Yes no lymphadenopathy and Yes supple Thyroid: Thyroid normal Resp Auscultation: clear to auscultation bilaterally, no rales and no wheezes Cardio Rate: regular rate Rhythm: regular rhythm Heart sounds: no murmurs GI Palpation (GI): Soft to palpation, nontender and No hepatosplenomegaly present Auscultation: normal bowel sounds General: Yes no CVA tenderness Back/Spine/Pelvis Back: no CVA tenderness Thoracic/Lumbar Spine: thoracic and lumbar spine normal to inspection Skin Other: (+) raised, hyperpigmented lesion on the right side of the face just anterior to the right ear Rashes: no rashes Neuro General: patient oriented x3, moves all extremities, no focal motor deficits and CN's II-XI intact bilaterally Cranial nerves: Yes Equal, round and reactive pupils present Cognition (Neuro): normal cognition Gait exam (Neuro): Normal gait present Extrem General: Yes no clubbing, cyanosis or edema Results Reviewed Results Reviewed: Laboratory Tests 10/21/23 10/21/23 10:11 15:05 WBC 7.3 Hgb 13.7 Hct 39.4 Plt Count 296 Sodium 142 Potassium 4.3 Creatinine 0.79 Estimated GFR > 60 Fasting Glucose 97 Hemoglobin A1c % 4.7 Calcium 9.1 AST 21 ALT 18 Triglycerides 73 Cholesterol 183 LDL Cholesterol, Calc 124 H HDL Cholesterol 45 25-OH Vitamin D Total 29.2 L TSH 2.68 Ur Specific [place] 1.010 Urine Protein Negative Urine Glucose (UA) Negative Urine Blood Negative Urine Nitrite Negative Ur Leukocyte Esterase Negative Assessment and Plan Assessment & Plan (1) Annual physical exam: Code(s): Z00.00 - Encounter for general adult medical examination without abnormal findings Plan: Results of her labs done a couple of days ago reviewed and discussed with patient She is currently up-to-date with her annual gynecology exam and pap smear (2) Migraine without aura: Code(s): G43.009 - Migraine without aura, not intractable, without status migrainosus Qualifiers: Status migrainosus presence: without status migrainosus Intractability: not intractable Qualified Code(s): G43.009 - Migraine without aura, not intractable, without status migrainosus Plan: Her migraine headaches again appear to be mostly menstrual migraine Continue Fioricet PRN for headaches (3) Asthma: Code(s): J45.909 - Unspecified asthma, uncomplicated Qualifiers: Asthma severity: mild Asthma persistence: intermittent Asthma complication type: uncomplicated Qualified Code(s): J45.20 - Mild intermittent asthma, uncomplicated Plan: Her asthma appears controlled/stable as she hardly has to use her rescue inhaler Continue Albuterol HFA 1 to 2 inhalations Q 6 hours PRN (4) Vitamin D deficiency: Code(s): E55.9 - Vitamin D deficiency, unspecified Plan: She is advised that her Vitamin D level is slightly low on her recent labs Will start her on Vitamin D3 1000 units QD (5) ASCUS with positive high risk HPV cervical: Code(s): R87.610 - Atypical squamous cells of undetermined significance on cytologic smear of cervix (ASC-US); R87.810 - Cervical high risk human papillomavirus (HPV) DNA test positive Plan: Seen on her pap smear done in July 2023 She underwent colposcopy with Dr. Salgado yesterday - results are still pending at this time (6) Facial skin lesion: Code(s): L98.9 - Disorder of the skin and subcutaneous tissue, unspecified Plan: Will refer her to dermatology for further evaluation and management (7) Obesity (BMI 30-39.9): Code(s): E66.9 - Obesity, unspecified Plan: Reinforced diet/exercise as tolerated/lose weight Per request, will refer her to weight management and also try starting her on Wegovy 0.25 mg SQ once a week although cautioned that her insurance may not cover the Rx Plan Follow up in 6 months Orders: Referrals Dermatology Referral L98.9 - Disorder of the skin and subcutaneous tissue, unspecified Medical Weight Management Referral E66.9 - Obesity, unspecified Medications: New cholecalciferol (vitamin D3) 25 mcg PO DAILY 90 days 90 caps 3RF E55.9 - Vitamin D deficiency, unspecified semaglutide (weight loss) (Wegovy) administer weeks 1 through 4 of therapy 0.25 mg (0.5 mL) subcut QWEEK 4 weeks 2 mL 0RF E66.9 - Obesity, unspecified Coding Level of Care Code Est Pt Prev Care [id number]([id number]) Diagnoses Annual physical exam Z00.00 Migraine without aura and without status migrainosus, not intractable G43.009 Status migrainosus presence: without status migrainosus Intractability: not intractable Mild intermittent asthma without complication J45.20 Asthma severity: mild Asthma persistence: intermittent Asthma complication type: uncomplicated Vitamin D deficiency E55.9 ASCUS with positive high risk HPV cervical R87.610; R87.810 Facial skin lesion L98.9 Obesity (BMI 30-39.9) E66.9
== END 2023-10-23 13:21 | disposition home or self-care (01) ==
PROVIDERS: PCP Internal Medicine; Visit Provider Internal Medicine
DX: Z00.00 Encounter for general adult medical examination without abnormal findings (principal); G43.009 Migraine without aura, not intractable, without status migrainosus; J45.20 Mild intermittent asthma, uncomplicated; E55.9 Vitamin D deficiency, unspecified; R87.610 Atypical squamous cells of undetermined significance on cytologic smear of cervix (ASC-US); R87.810 Cervical high risk human papillomavirus (HPV) DNA test positive; L98.9 Disorder of the skin and subcutaneous tissue, unspecified
CPT/HCPCS: 99395

== ENCOUNTER 2023-10-31 16:45 | Emergency (ER) | payer OTHER, SELFPAY ==
[2023-10-31 16:49] VITALS: BP 122/60; PULSE 73; RESP 18; TEMP 36.7; O2SAT 97; BMI 32.1
--- NOTE | 2023-10-31 16:50 | ED.UPPEXIN ---
HPI - Extremity Injury (Upper) General Chief Complaint: Wound/Laceration Stated Complaint: rt finger laceration Time Seen by Provider: 10/31/23 16:52 Source: patient Mode of arrival: ambulatory Limitations: no limitations History of Present Illness ED Provider: Rajeev Pandya PA-C HPI narrative: 32-year-old right-hand dominant female presents to the ER for evaluation of a cut on her hand sustained with glass when a dish broke as she was washing it. Bleeding was controlled with direct pressure. She is able to fully range all digits. No numbness or tingling. Last tetanus shot was July of this year. complaint: injury to: right and hand Onset (ago): minute(s) Other injuries: none Handedness: right Place: home Severity: mild Severity scale (1-10): 3 Relieving factors: immobilization Exacerbating factors: movement of extremity Associated symptoms: denies other symptoms Treatments prior to arrival: bandage Related Data Previous Rx's ?Medication ?Instructions ?Recorded albuterol sulfate 90 mcg/actuation 2 puff inhalation Q6H PRN 02/24/23 aerosol inhaler shortness of breath or wheezing #6.7 grams iwzqvpqqze-menhiprntrjpq-rzvgduah 1 cap PO TID PRN headache #30 caps 07/17/23 50 mg-300 mg-40 mg capsule (Fioricet) cholecalciferol (vitamin D3) 25 25 mcg PO DAILY 90 days #90 caps 10/23/23 mcg (1,000 unit) capsule semaglutide (weight loss) 0.25 0.25 mg (0.5 mL) subcut QWEEK 4 10/23/23 mg/0.5 mL subcutaneous pen weeks #2 mL injector (Wegovy) Allergies Allergy/AdvReac Type Severity Reaction Status Date / Time sulfamethoxazole Allergy Unknown Unknown Verified 10/31/23 16:52 Review of Systems Review of Systems: Yes all other systems are reviewed and are negative PMFSH Past Medical History Medical History (Updated 10/31/23 @ 16:53 by MARITZA Johnson) Vitamin D deficiency ASCUS with positive high risk HPV cervical Obesity (BMI 30-39.9) Asthma Migraine without aura Surgical History (Updated 10/23/23 @ 13:02 by Charlie Naylor MD) History of colposcopy Family History Family History Father Alive and well Mother Hypertension Maternal Grandmother Breast cancer Maternal Aunt Breast cancer Maternal Grandfather Stomach cancer Family/Other Ovarian cancer Social History Social History Alcohol intake: never Patient Tobacco Use Status: Never used Tobacco service: No Current occupational status: employed 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 Oriented X3. No acute distress. HEENT: normal inspection CVS: Normal heart rate and rhythm. Pulses normal. Respiratory: No respiratory distress. Skin: Skin warm and dry. Normal skin color. Normal skin turgor. No rashes. Extremities: Dorsum of the right hand with a 1.5 cm laceration over the 1st MCP, visble tendon sheath. Full range of motion of the 1st digit, normal extension and flexion. Neurovascularly intact distally. Mild oozing. Neuro: Oriented X 3. No motor deficit. No sensory deficit. Course Course Course Narrative: This is a Rapid Medical Examination (RME) performed by Rajeev Pandya PA-C in triage. Full HPI, ROS, assessment and treatment plan per primary provider in the Main ED. 32 yo right handed female presents to the ER for evaluation of a 1.5cm superficial laceration on knuckle of the 1st digit sustained just prior to arrival when she was washing a dish and it broke. Bleeding controlled with pressure. unknown tdap Plan: likely suture repair, tdap Medical Decision Making Medical Decision Making MDM Narrative: 32-year-old right-hand dominant female presents the ER for evaluation of a laceration to her right 1st MCP area, sustained with glass. No suspicion for foreign body after wound exploration. Low clinical suspicion for bony involvement. Tdap up-to-date. Wound was irrigated and cleaned with Betadine. Wound was closed with 3 sutures. Patient counseled on wound care and return precautions. Stable for discharge Differential Diagnosis Differential Diagnoses: The differential diagnosis associated with the presentation includes Superficial laceration, deep laceration, tendon injury, open fracture External Record Review External record reviewed: Prior outpatient labs Tests considered The following testing was considered but not selected: Considered x-ray of the hand however low clinical suspicion for bony involvement Prescription Management I considered prescription management with: Pain Medication and Antibiotic Procedures Laceration Laceration 1: Site: hand Side (If applicable): right Size (cm): 1.5 Description: linear Depth: simple, single layer Local Anesthetic: lidocaine 1% Amount of anesthesia used (mL): 1 Pre-repair: wound explored, irrigated extensively and deep structures intact Skin layer closed with: nylon Size (cm): 5-0 Number of sutures: 3 Critical Care Time Critical Care Time Critical Care Time: No Discharge Plan Discharge Clinical Impression: Hand laceration Qualifiers: Encounter type: initial encounter Foreign body presence: without foreign body Laterality: right Qualified Code(s): S61.411A - Laceration without foreign body of right hand, initial encounter Patient Disposition: Home, Self-Care Instructions: Laceration (DC) Additional Instructions: 3 stitches were used to close your wound today You will need your stitches out in 6-7 days. See you doctor for this or come back to the ER and we will remove them. Do not get wet for 24 hours, after that you can briefly wash with soap and water then pat dry. Keep wound clean and covered. allow open to air for a few hours per day. Do not submerge in water, no swimming. If you develop signs of infection including increased pain, swelling, redness or drainage of pus come back to the ER for further evaluation. Prescriptions: No Action dzvkypjfji-uquupswqwlnck-qsgh [Fioricet] 50-300-40 mg capsule 1 cap PO TID PRN (Reason: headache) Qty: 30 3RF albuterol sulfate 90 mcg/actuation HFA aerosol inhaler 2 puff inhalation Q6H PRN (Reason: shortness of breath or wheezing) Qty: 6.7 0RF Wegovy 0.25 mg/0.5 mL pen injector 0.25 mg subcut QWEEK 28 Days Qty: 2 0RF Rx Instructions: administer weeks 1 through 4 of therapy cholecalciferol (vitamin D3) 25 mcg (1,000 unit) capsule 25 mcg PO DAILY 90 Days Qty: 90 3RF Print Language: Japanese
[2023-10-31 17:32] VITALS: BP 122/60; PULSE 73; RESP 16; TEMP 36.7; O2SAT 97
[2023-10-31] MEDS: Lidocaine HCl 1 % MPF 2 ML VIAL INFILTRATI (17:32)
== END 2023-10-31 17:33 | disposition home or self-care (01) ==
PROVIDERS: Emergency Provider Emergency Medicine; PCP Internal Medicine
DX: S61.411A Laceration without foreign body of right hand, initial encounter (principal); W25.XXXA Contact with sharp glass, initial encounter; Y93.G1 Activity, food preparation and clean up; Y92.010 Kitchen of single-family (private) house as the place of occurrence of the external cause; Y99.9 Unspecified external cause status
CPT/HCPCS: 12001; 99282; 99284

== ENCOUNTER 2023-11-06 12:43 | Outpatient (AMB) | payer OTHER, SELFPAY ==
[2023-11-06 12:44] VITALS: BP 112/78; PULSE 77; O2SAT 98; BMI 32.4
--- NOTE | 2023-11-06 12:44 | MHC.PC.OV ---
Vital Signs 11/06/23 12:44 Height 5 ft 8 in Weight 213 lb 0.1 oz BMI 32.4 BP 112/78 Blood Pressure Location Lt brachial Position Sitting Pulse 77 Pulse Source Pulse Oximeter Pulse Oximetry (%) 98 Oxygen Delivery Method Room Air Intake Visit Reasons: stitch removal Intake Note: [place] [facility] [place]-hand lac[place], in today for suture removal. Allergies sulfamethoxazole Allergy (Unknown, Verified 11/06/23 13:37) Unknown Medication List - Last Reconciled 11/06/23 by Charlie Naylor MD albuterol sulfate 90 mcg/actuation 2 puffs inhalation Q6H PRN quedacblpm-lmuamzhaarwmr-mpgt 50-300-40 mg (Fioricet) 1 cap PO TID PRN cholecalciferol (vitamin D3) 25 mcg PO DAILY 90 days ibuprofen 800 mg PO Q8H PRN semaglutide (weight loss) (Wegovy) 0.25 mg (0.5 mL) subcut QWEEK 4 weeks tirzepatide (weight loss) (Zepbound) 2.5 mg (0.5 mL) subcut QWEEK 4 weeks Tobacco use date assessed: 06/26/23 Dental Screening Dental Screen Date: 06/26/23 HPI stitch removal HPI Details Patient comes in today mainly to have the stitches on her right hand/finger removed She apparently sustained the injury last week while washing dishes - states that a dish she was washing broke off and she got cut on her hand at the knuckle area of the right index finger in the process She went to the ER and she had the wound cleaned and irrigated and eventually closed with 3 sutures States that her tetanus immunization is up-to-date She was advised to see her PCP in about a week to have the sutures removed Patient states that her right hand wound appears to have healed well and just feels very slightly sore at times but she otherwise has no acute issues at present She is requesting for Rx for Ibuprofen 800 mg to take as needed for menstrual cramps - states that her periods have been painful lately Is also requesting for an alternative to her Wegovy, per advice from her pharmacist, as they have not been able to get her Wegovy due to unavailability [facility] Medical History (Updated 11/06/23 @ 13:34 by Charlie Naylor MD) Vitamin D deficiency ASCUS with positive high risk HPV cervical Obesity (BMI 30-39.9) Asthma Migraine without aura Surgical History History of colposcopy Family History Father Alive and well Mother Hypertension Maternal Grandmother Breast cancer Maternal Aunt Breast cancer Maternal Grandfather Stomach cancer Family/Other Ovarian cancer Social History Alcohol intake: never Patient Tobacco Use Status: Never used Tobacco service: No Current occupational status: employed 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 How often do you have a drink containing alcohol?: 2-4 times a month 2. How many drinks containing alcohol do you have on a typical day when you are drinking?: 1 or 2 3. How often do you have six or more drinks on one occasion?: Never Total Score: 2 Score Reviewed/Action Taken: Yes MAX-7 AMB Questionnaire MAX-7 Date MAX - 7 assessed: 06/26/23 Source: Developed by Drs. Forrest Shelton, Catrina Henderson, Lance Mata and colleagues, with an educational lachelle from [email or web address]. Review of Systems Const Denies fatigue, Denies fever(s) and Denies headache(s) ENT Denies dysphagia, Denies dizziness, Denies headache(s), Denies neck pain and Denies sore throat Card Denies chest pain, Denies palpitations and Denies dyspnea Resp Denies cough and Denies dyspnea GI Denies abdominal pain, Denies constipation, Denies dysphagia, Denies diarrhea, Denies nausea and Denies vomiting Denies difficulty voiding, Denies nocturia, Reports dysmenorrhea and Denies dysuria Musc Denies neck pain Skin/Breast Details: healed laceration at the base of the right index finger, with sutures in place Neuro Denies dizziness and Denies headache(s) Endo Denies fatigue and Denies palpitations Physical exam (Primary Care) Vital Signs: Last Vital Signs Pulse 77 11/06/23 12:44 BP 112/78 11/06/23 12:44 Pulse Ox 98 11/06/23 12:44 Oxygen Delivery Method Room Air 11/06/23 12:44 BMI result Body Mass Index 32.4 Tobacco/Smoking Status: Tobacco use Status Tobacco use date assessed 06/26/23 11/06/23 12:45 Patient Tobacco Use Status Never used Tobacco 11/06/23 12:45 Thrive Assessment: Date of Thrive Assessment Date Thrive assessed 06/26/23 11/06/23 12:45 Const General: no acute distress and alert HENMT Throat: Yes posterior oropharynx normal and Yes tonsils normal (no TP congestion noted) Neck Neck: Yes no lymphadenopathy and Yes supple Thyroid: Thyroid normal Resp Auscultation: clear to auscultation bilaterally, no rales and no wheezes Cardio Rate: regular rate Rhythm: regular rhythm Heart sounds: no murmurs GI Palpation (GI): Soft to palpation and nontender Auscultation: normal bowel sounds General: Yes no CVA tenderness Back/Spine/Pelvis Back: no CVA tenderness Skin Other: (+) healed laceration at the base of the right index finger (on the dorsum), with [address] Extrem General: Yes no clubbing, cyanosis or edema Assessment and Plan Assessment & Plan (1) Encounter for removal of sutures: Code(s): Z48.02 - Encounter for removal of sutures Plan: Patient's right index finger wound appears well healed and sutures are in place and intact - there are 3 sutures in total Wound cleaned and all 3 sutures were removed successfully with suture scissors and forceps Patient tolerated the procedure well Wound is again cleaned and per request, was covered with a band-aid Patient is instructed to continue with daily wound care for at least a couple of more days (2) Menstrual cramps: Code(s): N94.6 - Dysmenorrhea, unspecified Plan: Per request, will send in Rx for Ibuprofen 800 mg Q 8 hours PRN for pain - is advised to make sure she takes this with food and only as needed (3) Obesity (BMI 30-39.9): Code(s): E66.9 - Obesity, unspecified Plan: Reinforced diet/exercise as tolerated/lose weight She was previously prescribed Wegovy to help her lose weight but states that she has not been able to get it from her local pharmacy yet Was supposedly advised that Wegovy is currently in short supply and that she can have her PCP try sending in an alternative Rx for now Will send in Rx for Zepbound 2.5 mg SQ once a week but patient is again advised that this may also require a prior authorization and may not necessarily be approved by her health insurance plan Plan Follow up as scheduled in April 2024 Medications: New tirzepatide (weight loss) (Zepbound) 2.5 mg (0.5 mL) subcut QWEEK 2 mL 2RF 4 weeks ibuprofen Take with food and only as needed 800 mg PO Q8H PRN 90 tabs 1RF pain Coding Level of Care Code Est Pt Level 3 (44824) Diagnoses Encounter for removal of sutures Z48.02 Menstrual cramps N94.6 Obesity (BMI 30-39.9) E66.9
== END 2023-11-06 13:30 | disposition home or self-care (01) ==
PROVIDERS: PCP Internal Medicine; Visit Provider Internal Medicine
DX: N94.6 Dysmenorrhea, unspecified (principal); E66.9 Obesity, unspecified; Z68.32 Body mass index [BMI] 32.0-32.9, adult; Z48.02 Encounter for removal of sutures
CPT/HCPCS: 15853; 99213

== ENCOUNTER 2023-12-02 12:11 | Outpatient (AMB) | payer OTHER, SELFPAY ==
--- NOTE | 2023-12-02 12:16 | MHC.OFFVIS ---
Intake Visit Reasons: colpo results Allergies sulfamethoxazole Allergy (Unknown, Verified 11/06/23 13:37) Unknown HPI Comments Details: The patient is scheduled tele health visit to discuss the results of the colposcopy biopsy/ECC pathology results which showed the following: A. Endocervix, curettage: Endocervical glandular mucosa and scant squamous epithelium; negative for dysplasia. B. Cervix, 3:00, biopsy: Squamous and endocervical glandular mucosa with inflammation and reactive changes; negative for dysplasia. C. Cervix, 5:00, biopsy: Squamous and endocervical glandular mucosa with inflammation and reactive changes; negative for dysplasia. D. Cervix, 6:00, biopsy: Squamous and endocervical glandular mucosa with inflammation and reactive changes; negative for dysplasia. E. Cervix, 7:00, biopsy: Squamous and endocervical glandular mucosa with inflammation and reactive changes; negative for dysplasia. F. Cervix, 9:00, biopsy: Endocervical glandular mucosa with inflammation and reactive changes; negative for dysplasia; no squamous mucosa present [facility] Medical History Vitamin D deficiency ASCUS with positive high risk HPV cervical Obesity (BMI 30-39.9) Asthma Migraine without aura Surgical History History of colposcopy Family History Father Alive and well Mother Hypertension Maternal Grandmother Breast cancer Maternal Aunt Breast cancer Maternal Grandfather Stomach cancer Family/Other Ovarian cancer Social History Alcohol intake: never Patient Tobacco Use Status: Never used Tobacco service: No Current occupational status: employed 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[employer] Sexual 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/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 Gender identity: Female Cognitive needs: No Hearing needs: No Vision needs: No Female Reproductive History Menstrual Age of Menarche: 14 Review of Systems Const All systems reviewed & are unremarkable except as noted in HPI and below Reports as per HPI and Reports no additional complaints GI Reports no additional complaints Reports no additional complaints Telehealth Telehealth Telehealth Platform: Telephone Location of provider rendering services: practice address Location of patient: address on file Patient Identification confirmed using: Name, : Yes Telehealth method: video Patient verbally consented to treatment: Yes Patient verbally consented to billing insurance company: Yes Patient informed of any privacy concerns related to visit: Yes Assessment & Plan Assessment & Plan (1) ASCUS with positive high risk HPV cervical: Code(s): R87.610 - Atypical squamous cells of undetermined significance on cytologic smear of cervix (ASC-US); R87.810 - Cervical high risk human papillomavirus (HPV) DNA test positive Category: Medical Plan: Discussed with the patient the pathology results of the colposcopy biopsies & endocervical curettage ( negative). Discussed with the patient the sensitivity specificity, positive and negative predictive value in detecting cervical cancer in addition discussed the regression, persistence and progression rates. Recommended co-testing in 12 months, if cytology and or HPV are abnormal will proceed was colposcopy biopsy and endocervical curettage. Instructions given to the patient to schedule a co test appointment in 1 year. All questions answered the patient verbalized understanding. I spent a total of 20 minutes reviewing the chart, talking to the patient via video and documenting in the medical record. Coding Level of Care Code Tele Est Pt Level 1 (28458) Diagnoses ASCUS with positive high risk HPV cervical R87.610; R87.810
== END 2023-12-03 09:31 | disposition home or self-care (01) ==
LOC: HO.HWS 12:11
PROVIDERS: PCP Internal Medicine; Visit Provider Obstetrics & Gynecology
DX: R87.610 Atypical squamous cells of undetermined significance on cytologic smear of cervix (ASC-US) (principal); R87.810 Cervical high risk human papillomavirus (HPV) DNA test positive
CPT/HCPCS: 99211

== ENCOUNTER → 2023-12-02 12:11 | Outpatient (BNVA) | payer OTHER, SELFPAY | PROVIDERS: PCP Internal Medicine; Visit Provider Obstetrics & Gynecology ==

== ENCOUNTER 2024-03-24 12:59 | Outpatient (REF) | payer OTHER, SELFPAY ==
--- NOTE | ~2024-03-24 | US_ITS ---
EXAMINATION: US DIAGNOSTIC ULTRASOUND BREAST, BILATERAL CLINICAL INFORMATION: Pain/lump in the right breast at 12:00. Left breast follow-up 9:00. COMPARISON: Comparison is made with relevant prior imaging. TECHNIQUE: Ultrasound of the breast is performed with real-time camara scale imaging and color Doppler. Targeted color Doppler ultrasound in the right breast at 9:00 3 cm from nipple demonstrates a simple cyst measuring 13 x 6 mm. At 12:00 7 cm from nipple there is a simple cyst measuring 14 x 14 x 13 mm. This is the area of the patient's palpable lump and pain. At 9:00 4 cm from the nipple is a hypoechoic oval solid mass versus complicated cyst measuring 2 x 1 x 2 mm. Targeted color Doppler ultrasound scanning in the left breast at 9:00 4 cm from the nipple again demonstrates a hypoechoic oval circumscribed solid mass measuring 12 x 10 x 7 mm on significantly changed from prior ultrasound. FINDINGS: Right: Solid mass versus complicated cyst at 9:00 recent admission nipple. Recommend 6 month follow-up ultrasound for further evaluation of stability. Simple cyst on ultrasound. Benign. Left: Circumscribed oval solid mass at 9:00 4 cm from the nipple. Probably benign. Recommend 6 month follow-up ultrasound to demonstrate 2 years of stability. Results are discussed with the patient at time of visit. US/US breast BI limited mamm only IMPRESSION: Recommend 6 month follow-up bilateral ultrasound for masses at 9:00 right breast and 9:00 left breast. Simple cyst at 12:00 in the right breast correlating with the area the patient's palpable lump and pain. Benign. ASSESSMENT: BI-RADS 3: Probably Benign RECOMMENDATION: Diagnostic ultrasound bilaterally in 6 months. This patient's information was entered into a reminder system with a target due date for their next mammogram. Electronically signed by: Liana Cantor DO 03/24/2024 03:03 PM [facility] [place]
== END 2024-03-24 13:00 | disposition home or self-care (01) ==
LOC: HO.MAMMO 12:59
PROVIDERS: PCP Internal Medicine; Visit Provider Internal Medicine
DX: N63.15 Unspecified lump in the right breast, overlapping quadrants (principal); N63.25 Unspecified lump in the left breast, overlapping quadrants
CPT/HCPCS: 76642

== ENCOUNTER → 2024-03-24 13:15 | Outpatient (BNV) | payer OTHER, SELFPAY | PROVIDERS: PCP Internal Medicine; Visit Provider Internal Medicine | DX: N63.15 Unspecified lump in the right breast, overlapping quadrants (principal) | CPT/HCPCS: 76642 ==

== ENCOUNTER 2024-05-02 12:59 | Outpatient (AMB) | payer OTHER, SELFPAY ==
[2024-05-02 13:01] VITALS: BP 110/82; PULSE 99; O2SAT 99; BMI 33.3
--- NOTE | 2024-05-02 13:01 | MHC.PC.OV ---
Vital Signs 05/02/24 13:01 Height 5 ft 8 in Weight 219 lb BMI 33.3 BP 110/82 Blood Pressure Location Lt brachial Position Sitting Pulse 99 Pulse Source Pulse Oximeter Pulse Oximetry (%) 99 Oxygen Delivery Method Room Air Intake Visit Reasons: 6mof\u [employer] Required: No Accompanied by: Self / Same As Patient Allergies sulfamethoxazole Allergy (Unknown, Verified 05/02/24 13:19) Unknown Medication List - Last Reconciled 05/02/24 by Charlie Naylor MD albuterol sulfate 90 mcg/actuation 2 puffs inhalation Q6H PRN oustdtkhbc-fkkiotsefgkem-cuiq 50-300-40 mg (Fioricet) 1 cap PO TID PRN cholecalciferol (vitamin D3) 25 mcg PO DAILY 90 days ibuprofen 800 mg PO Q8H PRN Tobacco use date assessed: 05/02/24 Dental Screening Dental Screen Date: 05/02/24 Did you have a dental visit in the last 12 months?: No Did you have a dental problem in the last 6 months where you did not have access to dental care?: No Was dental information given to patient?: No [facility] Medical History Vitamin D deficiency ASCUS with positive high risk HPV cervical Obesity (BMI 30-39.9) Asthma Migraine without aura Surgical History History of colposcopy Family History Father Alive and well Mother Hypertension Maternal Grandmother Breast cancer Maternal Aunt Breast cancer Maternal Grandfather Stomach cancer Family/Other Ovarian cancer Social History Alcohol intake: never Patient Tobacco Use Status: Never used Tobacco e-Cigarette/Vaping Use: Never Used service: No Current occupational status: employed 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 1. Little interest or pleasure in doing things: not at all 2. Feeling down, depressed, or hopeless: not at all 3. Trouble falling or staying asleep, or sleeping too much: not at all 4. Feeling tired or having little energy: not at all 5. Poor appetite or overeating: not at all 6. Feeling bad about yourself - or that you are a failure or have let yourself or your family down: not at all 7. Trouble concentrating on things, such as reading the newspaper or watching television: not at all 8. Moving or speaking so slowly that other people could have noticed. Or the opposite - being so fidgety or restless that you have been moving around a lot more than usual: not at all 9. Thoughts that you would be better off or of hurting yourself in some way: not at all Total score: 0 Depression Screening Interpretation: Negative Depression Screening Done: Yes 07172 - PHQ-9 Billing: Yes Source: Developed by Drs. Forrest Shelton, Catrina Henderson, Lance Mata and colleagues, with an educational lachelle from [employer]. Thrive Questionnaire Date Thrive assessed: 05/02/24 I am a: Patient What is your living situation today?: I have a steady place to live Within the past 12 months, did the food you bought not last and you didn't have the money to get more?: Never true Within the past 12 months, did you worry whether your food would run out before you got money to buy more?: Never true Do you have trouble paying for medicines?: No Do you have trouble getting transportation to medical appointments?: No Do you have trouble paying your heating and electricity bill?: No Do you have trouble taking care of your child, family member or friend?: No Do you have trouble with day-to-day activities such as bathing, preparing meals, shopping, managing finances, etc.?: No Are you currently unemployed and looking for a job?: No Are you interested in more education?: No Please select the resources that you would like help with: None Currently or been in a relationship where the following occur: No concerns reported THRIVE Score: 0 AUDIT C Alcohol Use Questionnaire (AUDIT-C) 1. How often do you have a drink containing alcohol?: 2-4 times a month 2. How many drinks containing alcohol do you have on a typical day when you are drinking?: 1 or 2 3. How often do you have six or more drinks on one occasion?: Never Total Score: 2 Score Reviewed/Action Taken: Yes MAX-7 AMB Questionnaire MAX-7 Date MAX - 7 assessed: 05/02/24 Feeling nervous, anxious, or on edge: 0 = Not at all Not being able to stop or control worryin = Not at all Worrying too much about different things: 0 = Not at all Trouble relaxin = Not at all Being so restless that it is hard to sit still: 0 = Not at all Becoming easily annoyed or irritable: 0 = Not at all Feeling afraid as if something awful might happen: 0 = Not at all Total MAX-7 score (0-4 normal; 5-9 mild; 10-14 moderate; 15-21 severe): 0 Source: Developed by Drs. Forrest Shelton, Catrina Henderson, Lance Mata and colleagues, with an educational lachelle from [employer]. Physical exam (Primary Care) Vital Signs: Last Vital Signs Pulse 99 05/02/24 13:01 BP 110/82 05/02/24 13:01 Pulse Ox 99 05/02/24 13:01 Oxygen Delivery Method Room Air 05/02/24 13:01 BMI result Body Mass Index 33.3 Tobacco/Smoking Status: Tobacco use Status Tobacco use date assessed 05/02/24 05/02/24 13:06 Patient Tobacco Use Status Never used Tobacco 05/02/24 13:06 e-Cigarette/Vaping Use Never Used 05/02/24 13:06 PHQ-9: PHQ-9 Score PHQ-9: Total score 0 05/02/24 13:17 Depression Screening Interpretation: Negative Thrive Assessment: Date of Thrive Assessment Date Thrive assessed 05/02/24 05/02/24 13:06 Currently or been in a relationship where the following occur: No concerns reported Results AMB Urinalysis, Automated UA Leukoctes 0 June/uL Last Edit by WILBUR Richmond on 05/02/24 13:19 UA Nitrite Negative Last Edit by WILBUR Richmond on 05/02/24 13:19 UA Urobilinogen 0 mg/dL Last Edit by Tenzin Walker A on 05/02/24 13:19 UA Protein 1 mg/dL Last Edit by Tenzin Walker A on 05/02/24 13:19 UA pH 6.5 Last Edit by Tenzin Walker, A on 05/02/24 13:19 UA Blood 0 Norm/uL Last Edit by Tenzin Walker A on 05/02/24 13:19 UA Specific [place] 1.015 Last Edit by Tenzin Walker, A on 05/02/24 13:19 UA Ketone Negative Last Edit by Tenzin Walker A on 05/02/24 13:19 UA Bilirubin 0 mg/dL Last Edit by Tenzin Walker [facility] on 05/02/24 13:19 UA Glucose 0 mg/dL Last Edit by Tenzin Walker A on 05/02/24 13:19 Results Reviewed Results Reviewed: Laboratory Last Values Urine pH (Auto) 6.5 05/02/24 13:16 Specific [place] (Auto) 1.015 05/02/24 13:16 Urine Protein (Auto) 1 mg/dL 05/02/24 13:16 Glucose (UA)(Auto) 0 mg/dL 05/02/24 13:16 Urine Ketones (Auto) Negative 05/02/24 13:16 Urine Blood (Auto) 0 Norm/uL 05/02/24 13:16 Urine Nitrite (Auto) Negative 05/02/24 13:16 Urine Bilirubin (Auto) 0 mg/dL 05/02/24 13:16 Urine Urobilinogen (Auto) 0 mg/dL 05/02/24 13:16 Leukocyte Esterase (Auto) 0 June/uL 05/02/24 13:16 Coding Additional Codes PHQ-9 - 55361 - PHQ-9 Billing: Yes ([id number]) Assessment & Plan Assessment & Plan Orders: Orders AMB Urinalysis Automated Today Z13.9 - Encounter for screening, unspecified XR knee RT 4V Today M25.561 - Pain in right knee XR knee LT 4V Today M25.562 - Pain in left knee Medications: Changed From tirzepatide (weight loss) (Zepbound) 2.5 mg (0.5 mL) subcut QWEEK 4 weeks 2 mL 2RF To Zepbound (tirzepatide (weight loss)) 2.5 mg (0.5 mL) subcut QWEEK 4 weeks 2 mL 1RF NS
== END 2024-05-02 13:33 | disposition home or self-care (01) ==
PROVIDERS: PCP Internal Medicine; Visit Provider Internal Medicine
DX: Z13.9 Encounter for screening, unspecified (principal)

== ENCOUNTER → 2024-05-02 12:59 | Outpatient (BNVA) | payer OTHER, SELFPAY | PROVIDERS: PCP Internal Medicine; Visit Provider Internal Medicine | DX: M25.561 Pain in right knee (principal); M25.562 Pain in left knee; J45.20 Mild intermittent asthma, uncomplicated; G43.009 Migraine without aura, not intractable, without status migrainosus; E55.9 Vitamin D deficiency, unspecified; R87.610 Atypical squamous cells of undetermined significance on cytologic smear of cervix (ASC-US); R87.810 Cervical high risk human papillomavirus (HPV) DNA test positive; L98.9 Disorder of the skin and subcutaneous tissue, unspecified; E66.9 Obesity, unspecified; Z68.33 Body mass index [BMI] 33.0-33.9, adult; Z79.899 Other long term (current) drug therapy; Z91.81 History of falling | CPT/HCPCS: 81003; 96127 ==

== ENCOUNTER 2024-08-08 13:36 | Outpatient (REF) | payer OTHER, SELFPAY ==
[2024-08-11 15:06] LABS: HPV Genotype 16 Negative (Negative); HPV Genotype 18 Negative (Negative); HPV High Risk Positive (Negative)
== END 2024-08-08 13:37 | disposition home or self-care (01) ==
LOC: HO.LNP 13:36
PROVIDERS: PCP Internal Medicine; Visit Provider Obstetrics & Gynecology
DX: Z01.419 Encounter for gynecological examination (general) (routine) without abnormal findings (principal); R87.810 Cervical high risk human papillomavirus (HPV) DNA test positive; R87.610 Atypical squamous cells of undetermined significance on cytologic smear of cervix (ASC-US)
CPT/HCPCS: 81025; 87626; 88175; 99395; 99459

== ENCOUNTER 2024-08-08 13:36 | Outpatient (AMB) | payer OTHER, SELFPAY ==
--- NOTE | 2024-08-08 13:42 | MHC.OFFVIS ---
Vital Signs 08/08/24 13:50 Height 5 ft 8 in Weight 218 lb BMI 33.1 BP 122/70 Intake Visit Reasons: cotesting/colpo/PP/DO NOT RS X2/30 MINS Director Summer Sessions: Director Summer Sessions Present (Elvira) Accompanied by: Self / Same As Patient Allergies sulfamethoxazole Allergy (Unknown, Verified 08/08/24 13:51) Unknown Is last menstrual period known: Yes Last menstrual period: 07/25/24 Post menopausal: No Patient : No HPI Comments Details: Presenting for annual exam with no complaints Last Pap in 08/08 was ascus/HPV positive, colpo biopsy ECC were negative [facility] Medical History Vitamin D deficiency ASCUS with positive high risk HPV cervical Obesity (BMI 30-39.9) Asthma Migraine without aura Surgical History History of colposcopy Family History Father Alive and well Mother Hypertension Maternal Grandmother Breast cancer Maternal Aunt Breast cancer Maternal Grandfather Stomach cancer Family/Other Ovarian cancer Social History Alcohol intake: never Patient Tobacco Use Status: Never used Tobacco e-Cigarette/Vaping Use: Never Used service: No Current occupational status: employed 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 Gender identity: Female Cognitive needs: No Hearing needs: No Vision needs: No Female Reproductive History Menstrual Age of Menarche: 14 Duration of menses: 3-5 days Date of last menstrual period: 07/25/24 Total pregnancies: 1 Ab spontaneous: 1 Date of last pap smear: 07/31/23 (positive pap smear, positive hpv) History of abnormal pap smear: Yes Date of Mammogram: 09/17/22 (bi rad 3) Review of Systems Const All systems reviewed & are unremarkable except as noted in HPI and below Card Reports as per HPI Resp Reports as per HPI GI Reports as per HPI and Reports no additional complaints Reports as per HPI Physical Exam Vital Signs: Last Vital Signs BP 122/70 08/08/24 13:50 BMI result Body Mass Index 33.1 Const General: cooperative, healthy appearing and comfortable Chest Chest palpation & inspection: normal inspection of the chest and normal palpation of entire chest wall Breast/axilla inspection: normal inspection of the breasts and normal inspection of the axillae Breast/axilla palpation: normal palpation of the breasts, normal palpation of the axillae and no axillary lymphadenopathy Resp Effort & Inspection: normal respiratory effort Auscultation: clear to auscultation bilaterally Percussion: percussion normal Cardio Palpation: normal PMI Rate: regular rate Rhythm: regular rhythm Heart sounds: no murmurs and no rubs Peripheral pulses: Peripheral pulses 2+ throughout GI Inspection: Yes normal to inspection Palpation (GI): Soft to palpation, nontender, no guarding, not rigid and No hepatosplenomegaly present Percussion: Yes normal to percussion Auscultation: normal bowel sounds Rectal Exam - Female: deferred General: Yes bladder normal to palpation External Female Exam: No lesion Speculum Exam - Vagina: normal appearance of the vagina, normal palpation, normal vaginal discharge and not erythematous Speculum Exam - Cervix: normal appearance of the cervix and normal palpation Bimanual exam- vagina & uterus: normal bimanual exam, normal palpation, uterine size normal, bladder normal to palpation, consistency normal and normal palpation Bimanual Exam- Adnexa, other: normal adnexae, no masses and no tenderness Results AMB Test Urine AMB Test Urine Negative Last Edit by Linda Ludwig CMA on 08/08/24 14:06 Assessment & Plan Assessment & Plan (1) ASCUS with positive high risk HPV cervical: Comment: 08/05 Pap negative 08/07 Pap negative/HPV E6 E7 positive, HPV 16/18/45 negative 08/08 ascus/HPV positive, colpo biopsy ECC negative Code(s): R87.610 - Atypical squamous cells of undetermined significance on cytologic smear of cervix (ASC-US); R87.810 - Cervical high risk human papillomavirus (HPV) DNA test positive Category: Medical Plan: Co testing done (2) Well woman exam: Code(s): Z01.419 - Encounter for gynecological examination (general) (routine) without abnormal findings Category: Medical Plan: Cotesting done. Counseled the patient about the recommended dietary allowance of 1000 mg of Calcium & 600 IU of vitamin D. The patient was instructed to perform monthly self-breast exams and to schedule an annual exam in a year; All questions answered and the patient verbalized understanding. Instructed the patient to schedule annual exam in a year Orders: Orders AMB HCG Urine Test Today Z32.02 - Encounter for test, result negative Coding Level of Care Code Est Pt Prev Care 18-39y(34144) Diagnoses ASCUS with positive high risk HPV cervical R87.610; R87.810 Well woman exam Z01.419
[2024-08-08 13:50] VITALS: BP 122/70; BMI 33.1
== END 2024-08-08 14:13 | disposition home or self-care (01) ==
LOC: HO.HWS 13:36
PROVIDERS: PCP Internal Medicine; Visit Provider Obstetrics & Gynecology
DX: Z01.419 Encounter for gynecological examination (general) (routine) without abnormal findings (principal); R87.610 Atypical squamous cells of undetermined significance on cytologic smear of cervix (ASC-US); R87.810 Cervical high risk human papillomavirus (HPV) DNA test positive; Z32.02 Encounter for pregnancy test, result negative
CPT/HCPCS: 99395; 99459

== ENCOUNTER 2024-09-20 15:15 | Outpatient (REF) | payer OTHER, SELFPAY | END 2024-09-20 15:16 | disposition home or self-care (01) | LOC: HO.LNP 15:15 | PROVIDERS: PCP Internal Medicine; Visit Provider Obstetrics & Gynecology | DX: R87.810 Cervical high risk human papillomavirus (HPV) DNA test positive (principal); Z32.02 Encounter for pregnancy test, result negative | CPT/HCPCS: 57454; 81025; 88305 ==

== ENCOUNTER 2024-09-20 15:15 | Outpatient (AMB) | payer OTHER, SELFPAY ==
--- NOTE | 2024-09-20 15:17 | A.OFFVIS_ITS ---
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 Allergies sulfamethoxazole Allergy (Unknown, Verified 09/20/24 15:18) Unknown Is last menstrual period known: Yes Last menstrual period: 08/12/24 HPI Comments Details: Presenting with negative Pap/HPV high-risk positive, HPV 16/18 negative 08/08 ascus HPV positive, colpo biopsy ECC negative PFSH Medical History Vitamin D deficiency ASCUS with positive high risk HPV cervical Obesity (BMI 30-39.9) Asthma Migraine without aura Surgical History History of colposcopy Family History Father Alive and well Mother Hypertension Maternal Grandmother Breast cancer Maternal Aunt Breast cancer Maternal Grandfather Stomach cancer Family/Other Ovarian cancer Social History Alcohol intake: never Patient Tobacco Use Status: Never used Tobacco e-Cigarette/Vaping Use: Never Used service: No Current occupational status: employed 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 We thoroughly discussed the procedure itself, including its details, alternatives, and all associated risks. This included but not limited to the following complications such as bleeding, infection, and injury to the vagina, bladder, and vessels, as well as the potential need for transfusion with all its associated risks. Subsequently, the patient sign the consent. Pap smear result: Negative Pap, HPV positive, HPV 16/18 negative Urine test in office = Negative Procedure: During the procedure, the following steps were performed: A speculum was inserted, and acetic acid was applied. Colposcopy was conducted, allowing visualization of the transformation zone. Acetowhite lesions were identified at the 7+ 9+ 11+ 12 o'clock position. Cervical biopsies were obtained from the 7+ 9+ 11+ 1 o'clock position, followed by an endocervical curettage (ECC). Vaginoscopy of the upper vagina revealed no evidence of aceto-white lesions. Hemostasis was achieved using Monsel solution, and the patient tolerated the procedure well. Post-Procedure Instructions: The patient was advised to promptly contact the office or the after hours answering service or go to the emergency room if experiencing a temperature exceeding 100.4?F, abdominal pain, nausea/vomiting, or bleeding. Additionally, the patient was instructed to abstain from vaginal intercourse and bathtub use. The patient confirmed understanding of these instructions. Discharge Instructions: The patient was instructed to schedule a follow-up appointment in 2 weeks for further evaluation and management. Please note that this note was generated using a voice recognition program, and errors may have occurred during commissary agent. [id number] of cervix including upper vagina with biopsy and ECC Procedure code (CPT) selection complete Results AMB Test Urine AMB Test Urine Negative Last Edit by WILBUR Talley on 09/20/24 15:24 Assessment & Plan Assessment & Plan (1) HPV in female: Comment: Negative Pap, HPV 16/18 negative Code(s): B97.7 - Papillomavirus as the cause of diseases classified elsewhere Category: Medical Plan: Discussed with the patient the result of her normal pap/HPV 16/18 negative,/HPV high-risk positive, its significance, risk of progression, persistence, and regression. the false positive/negative rate of a Pap smear as a screening test in detecting cervical cancer and the indication for a diagnostic test - colposcopy, biopsy, endocervical curettage. The patient verbalized understanding and agreed with the plan, all questions answered. Colpo/biopsy/ECC done, see procedure note Orders: Orders AMB Colposcopy Today B97.7 - Papillomavirus as the cause of diseases classified elsewhere AMB HCG Urine Test Today Z32.02 - Encounter for test, re sult negative Coding Level of Care Code Procedure Only Diagnoses HPV in female B97.7 CPT Codes Colposcopy - CPT: 02514-Fpggfrdgy of cervix including upper vagina with biopsy and ECC ([id number])
[2024-09-20 15:21] VITALS: BP 110/70
--- OUTSIDE RECORDS SUMMARY | 2024-09-20 16:26 | XMS_ITS | Clinical Summary ---
Author Organization [facility] Address [address] [place] [id number] Phone Care Team Providers Care Vp Name Role Phone Unavailable Primary Care Provider Unavailabl e Immunizations Immunization Administration Dates Next Due DTP 1995, 3,04/16/1992,02/14 DTaP 5 01/15/1997 HPV, Quadrivalent 04/24/2011,01/30/2010,11/16/19 09 Hep B, ped/adol 07/15/1992,01/16/1992,1991 Hib (HbOC) 1995, 3,04/16/1992,02/14 IPV 01/15/1997, 6,04/16/1992,02/14 Influenza Split 04/24/2011 Influenza, injectable, trivalent 03/03/2008 Influenza, intranasal, trivalent 01/30/2010 MMR 01/15/1997,1995 Meningococcal Conj (Menactra) MCV4P 09/15/2007 Td (adult) (MBL), 2 Lf tetan us toxoid, PF, adsorbed 01/16/2005 Tdap 09/15/2007 Family History Relation Name Status Comments Brother Alive Brother: Asthma , Alive and well Cousin 1 Cousin: Seizure disorder, ADD/ADHD Cousin 2 Cousin: Seizure disorder, ADD/ADHD Father Alive Father: Asthma Maternal Grandmother Materna l grandmother: Hyperlipidemia, Deafness, Diabetes mellitus Mother Alive Mother: Alive a nd well Other Family history of Obesity, Family history of Migraines Sister Alive Sister: Alive a nd well Social History Tobacco Use Types Packs/Day Years Used Date Smoking Tobacco: Never Comments:Never smoker Comments Unknown Sex and Gender Information Value Date Recorded Sex Assigned at Not on file Legal Sex Female 4:49 PM EDT Gender Identity Not on file Sexual Orientation Not on file Last Filed Vital Signs Vital Sign Reading Time Taken Comments Blood Pressure 110/60 06/18/2012 12:00 AM EST Pulse - - Temperature 37.2 ??C (99 ??F) 06/18/2012 12:00 AM EST Respiratory Rate - - Oxygen Saturation - - Inhaled Oxygen Concentration - - Weight 64.4 kg (142 lb) 06/18/2012 12:00 AM EST Height 168.9 cm (5' 6.5 ) 06/18/2012 12:00 AM ES T Body Mass Index 22.58 06/18/2012 12:00 AM EST Plan of Treatment Health Maintenance Due Date Last Done Comments Varicella Vaccines (1 of 2 - 13+ 2-dose series) 02/27/2010 DTaP,Tdap,and Td Vaccines (7 - Td or Tdap) 09/14/2017 09/15/2007, 01/16/2005, 01/15/1997, Additional history exists Influenza Vaccines (#1) 2023 04/24/20, 01/30/2010, 03/03/2008 COVID-19 Vaccine ( season) 2024 Hepatitis B Vaccines Completed 07/15/1992, 01/16/1992, 1991 HIB Vaccines Completed 1995, 06/19, 04/16/1992, Additional history exists IPV Vaccines Completed 01/15/1997, 10/18, 04/16/1992, Additional history exists MMR Vaccines Completed 01/15/1997, 1995 Meningococcal Vaccine Aged Out 09/15/2007 No jeffrey dejon eligible based on patient's age to complete this topic HPV Vaccines Completed 04/24/2011, 01/16, 2008 Hepatitis A Vaccines Aged Out No long er eligible based on patient's age to complete this topic Men B Vaccine Aged Out No longer elig ible based on patient's age to complete this topic Pneumococcal Vaccine Aged Out No long er eligible based on patient's age to complete this topic Procedures * Due to [place] state law, this organization might not be sharing sensitive test results. Procedure Name Priority Date/Time Associated Diagnosis Comments CHLAMYDIA AND GONORRHEA, AMPLIFIED Routine 12/16/2011 1:11 PM EDT from Last 3 Months or Most Recently Relevant to Health Maintenance Results * Due to [facility] law, this organization might not be sharing sensitive test results. * Chlamydia and Gonorrhoea, Amplified (12/16/2011 1:11 PM EDT) Pathologist [facility] URINE GC AMP PROBE NEGATIVE [facility] Comment: NO NEISSERIA GONORRHOEAE RNA DETECTED IN THIS PATIENT'S SAMPLE. ? (REFERENCE RANGE/NORMAL VALUE: NOT DETECTED) ? NOTE: THIS TEST USES AIRVEYOR OPERATOR MEDIATED AMPLIFICATION METHOD TO DETECT rRNA FROM C.TRACHOMATIS AND N.GONORRHOEAE. A NEGATIVE RESULT DOES NOT PRECLUDE INFECTION WITH C.TRACHOMATIS OR N.GONORRHOEAE BECAUSE RESULTS ARE DEPENDENT ON ADEQUATE SPECIMEN COLLECTION, ABSENCE OF INHIBITORS, AND SUFFICIENT rRNA TO BE DETECTED. THE APTIMA COMBO2 ASSAY IS NOT INTENDED FOR THE EVALUATION OF SUSPECTED SEXUAL ABUSE OR FOR OTHER MEDICO LEGAL INDICATIONS. IS TRUE FOR ALL NON CULTURE METHODS, A POSITIVE SPECIMEN OBTAINED FROM A PATIENT AFTER THERAPEUTIC TREATMENT CANNOT BE INTERPRETED INDICATING THE PRESENCE OF VIABLE C.TRACHOMATIS OR N.GONORRHOEAE. THERAPEUTIC FAILURE OR SUCCESS CANNOT BE DETERMINED WITH THE APTIMA COMBO2 ASSAY SINCE NUCLEIC ACID MAY PERSIST FOLLOWING APPROPRIATE ANTIMICROBIAL THERAPY. A NEGATIVE URINE RESULT FOR A PATIENT WHO IS CLINICALLY SUSPECTED OF HAVING A CHLAMYDIAL OR GONOCOCCAL INFECTION DOES NOT RULE OUT THE PRESENCE OF C.TRACHOMATIS OR N.GONORRHOEAE IN THE UROGENITAL TRACT. TESTING OF AN ENDOCERVICAL(FEMALE) OR URETHRAL(MALE) SPECIMEN IS RECOMMENDED IF THERE IS HIGH CLINICAL SUSPICION OF INFECTION. PRESERVCYT LIQUID PAP AND URINE SAMPLING ARE NOT DESIGNED TO REPLACE CERVICAL EXAMS AND ENDOCERVICAL SAMPLES FOR DIAGNOSIS OF FEMALE UROGENITAL INFECTIONS. PATIENTS MAY HAVE CERVICITIS, URETHRITIS, URINARY TRACT INFECTIONS, OR VAGINAL INFECTIONS DUE TO OTHER CAUSES OR CONCURRENT INFECTIONS WITH OTHER AGENTS. URINE CHLAMYDIA AMP PROBE NEGATIVE [facility] Comment: NO CHLAMYDIA TRACHOMATIS RNA DETECTED IN THIS PATIENT'S SAMPLE. ? (REFERENCE RANGE/NORMAL VALUE: NOT DETECTED) 12/16/2011 1:11 PM EDT Narrative [facility] - 12/16/2011 1:11 PM EDT URINE CHLAMYDIA GC AMP PROBE us Grazyna Rios MD LAB MICROBIOLOGY - GENERAL ORDER JOHN Final Result [facility] [address] [place] [address], [place] from Last 3 Months or Most Recently Relevant to Health Maintenance
--- OUTSIDE RECORDS SUMMARY | 2024-09-20 16:26 | XMS_ITS | Clinical Summary ---
Author Organization [facility] Address [address] [place] [address] Care Team Providers Care Custom Grinder Name Role Phone Unavailable Primary Care Provider Unavailabl e Social History Tobacco Use Types Packs/Day Years Used Date Smoking Tobacco: Never Assessed Comments Unknown Sex and Gender Information Value Date Recorded Sex Assigned at Not on file Legal Sex Female 7:39 AM EDT Gender Identity Not on file Sexual Orientation Not on file Plan of Treatment Health Maintenance Due Date Last Done Comments Hepatitis C Virus Screening 1991 HIV Screening 11/14/2004 DTaP/Tdap/Td Vaccines (1 - Tdap) 11/14/2010 Hepatitis B Vaccines (1 of 3 - 19+ 3-dose series) 11/14/2010 COVID-19 Vaccine (2023-2 5 season) 2024 HPV Vaccines Aged Out No longer eligi ble based on patient's age to complete this topic Pneumococcal Vaccine: Pediat naseem (0-5 Years) and At-Risk Patients (6 to 49 Years) Aged Out No longer eligible b ased on patient's age to complete this topic
--- OUTSIDE RECORDS SUMMARY | 2024-09-20 16:26 | XMS_ITS | Encounter Summary ---
Author Organization [facility] Address [address] [place] [address] Phone Care Team Providers Care Perishable Fruit Inspector Name Role Phone Grazyna Rios MD Primary Care Provider [phone] Encounter Details Date Type Department Care Team (Late st Contact Info) Description 05/27/2013 Documentation [facility] [place] Family Medicine [address], [place] [id number] Family Medicine, Physician [address] [place] [address] Social History Tobacco Use Types Packs/Day Years Used Date Smoking Tobacco: Never Assessed Comments Unknown Sex and Gender Information Value Date Recorded Sex Assigned at Not on file Legal Sex Female 4:49 PM EDT Gender Identity Not on file Sexual Orientation Not on file documented as of this encounter Plan of Treatment Not on file documented as of this encounter Visit Diagnoses Not on filedocumented in this encounter Care Teams Perishable Fruit Inspector Relationship Specialty Start Date End Date Grazyna Rios MD [address] [place] [address] [place] [address] PCP - General 12/26/16 08/27/22 documented as of this encounter
--- OUTSIDE RECORDS SUMMARY | 2024-09-20 16:26 | XMS_ITS | Encounter Summary ---
Author Organization [facility] Address [address] [place] [address] Phone Care Team Providers Care Sfdc Developer Name Role Phone Grazyna Rios MD Primary Care Provider [phone] Encounter Details Date Type Department Care Team (Late st Contact Info) Description 01/01/2017 Conversion Encounter [facility] [place] [address] [place] [address] Social History Tobacco Use Types Packs/Day Years [...] on filedocumented in this encounter Care Teams Sfdc Developer Relationship Specialty Start Date End Date Grazyna Rios MD [address] [place] [address] PCP - General 12/26/16 08/27/22 documented as of this encounter
--- OUTSIDE RECORDS SUMMARY | 2024-09-20 16:26 | XMS_ITS | Encounter Summary ---
Author Organization [facility] Address [address] [place] [address] Phone Care Team Providers Care Presser And Shaper Knitted Goods Name Role Phone Grazyna Rios MD Primary Care Provider [phone] Encounter Details Date Type Department Care Team (Late st Contact Info) Description 06/24/2012 Documentation [facility] [place] Family Medicine [address], [place] [id number] Family Medicine, Physician [address] [place] [address] Social History Tobacco Use Types Packs/Day Years [...] on filedocumented in this encounter Care Teams Presser And Shaper Knitted Goods Relationship Specialty Start Date End Date Grazyna Rios MD [address] [place] [address] [place] [address] PCP - General 12/26/16 08/27/22 documented as of this encounter
--- OUTSIDE RECORDS SUMMARY | 2024-09-20 16:26 | XMS_ITS | Encounter Summary ---
Author Organization [facility] Address [address] [place] [address] Phone Care Team Providers Care Veneer Jointer Helper Name Role Phone Grazyna Rios MD Primary Care Provider [phone] Encounter Details Date Type Department Care Team (Late st Contact Info) Description 09/27/2012 [place]ation [facility] [place] [address], [place] [id number] Family Medicine, Physician [address] [place] [address] Social History Tobacco Use Types Packs/Day Years [...] on filedocumented in this encounter Care Teams Veneer Jointer Helper Relationship Specialty Start Date End Date Grazyna Rios MD [address] [place] [address] [place] [address] PCP - General 12/26/16 08/27/22 documented as of this encounter
== END 2024-09-20 15:40 | disposition home or self-care (01) ==
LOC: HO.HWS 15:15
PROVIDERS: PCP Internal Medicine; Visit Provider Obstetrics & Gynecology
DX: R87.810 Cervical high risk human papillomavirus (HPV) DNA test positive (principal); Z32.02 Encounter for pregnancy test, result negative
CPT/HCPCS: 57454

== ENCOUNTER → 2024-10-03 11:00 | Outpatient (BNV) | payer OTHER, SELFPAY | PROVIDERS: PCP Internal Medicine; Visit Provider Internal Medicine | DX: N60.09 Solitary cyst of unspecified breast (principal) | CPT/HCPCS: 76642 ==

== ENCOUNTER 2024-10-03 11:02 | Outpatient (REF) | payer OTHER, SELFPAY ==
--- NOTE | ~2024-10-03 | US_ITS ---
EXAMINATION: US DIAGNOSTIC ULTRASOUND BREAST, BILATERAL CLINICAL INFORMATION: Ultrasound follow-up for bilateral complicated cysts versus solid masses.. COMPARISON: Comparison is made with relevant prior imaging. TECHNIQUE: Ultrasound of the breast is performed with real-time camara scale imaging and color Doppler. FINDINGS: Targeted color Doppler ultrasound scanning in the left breast at 9:00 4 cm from the nipple again demonstrates a hypoechoic oval circumscribed solid mass versus complicated cyst measuring 12 x 10 x 6 mm which is not significantly changed from prior ultrasounds dating back for 2 years and therefore benign. Targeted color Doppler ultrasound in the right breast at 9:00 4 7 m from nipple again demonstrates a hypoechoic oval circumscribed solid mass versus complicated cyst measuring 3 x 1 x 3 mm not significantly changed from prior ultrasound 6 months ago. Results are discussed with the patient at time of visit. US/US breast BI limited mamm only IMPRESSION: Left: Hypoechoic solid mass versus complicated cyst at 9:00 4 cm from the nipple stable on prior ultrasounds dating back for 2 years and therefore benign. Right: Hypoechoic solid mass versus complicated cyst at 9:00 4 cm from the nipple stable on prior ultrasounds dating back for 6 months. Probably benign. Recommend 6 month follow-up ultrasound for further evaluation of stability. ASSESSMENT: BI-RADS 3: Probably Benign RECOMMENDATION: Diagnostic mammography in 6 months. Electronically signed by: Liana Cantor DO 10/03/2024 01:09 PM EDT
--- OUTSIDE RECORDS SUMMARY | 2024-10-03 11:51 | XMS_ITS | Encounter Summary ---
Author Organization [facility] Address [address] [place] [address] Phone Care Team Providers Care Analytical Clerk Name Role Phone Grazyna Rios MD Primary Care Provider [phone] Encounter Details Date Type Department Care Team (Late st Contact Info) Description 05/27/2013 Documentation [facility] [place] [address], [place] [phone] Family Medicine, Physician [address] [place] [address] Social History Tobacco Use Types Packs/Day Years [...] on filedocumented in this encounter Care Teams Analytical Clerk Relationship Specialty Start Date End Date Grazyna Rios MD [address] [place] [address] [place] [address] PCP - General 12/26/16 08/27/22 documented as of this encounter
--- OUTSIDE RECORDS SUMMARY | 2024-10-03 11:51 | XMS_ITS | Clinical Summary ---
Author Organization [facility] Address [address] [place] [address] Phone Care Team Providers Care Magnetic Tape Composer Operator Name Role Phone Unavailable Primary Care Provider [...] this topic Procedures * Due to [place] state law, this organization might not be sharing sensitive test results. Procedure Name Priority Date/Time Associated Diagnosis Comments CHLAMYDIA AND GONORRHEA, AMPLIFIED Routine 12/16/2011 1:11 PM EDT from Last 3 Months or Most Recently Relevant to Health Maintenance Results * Due to [facility] law, this organization might not be sharing sensitive test results. * Chlamydia and Gonorrhoea, Amplified (12/16/2011 1:11 PM EDT) Pathologist [facility] URINE GC AMP PROBE NEGATIVE [facility] Comment: NO NEISSERIA GONORRHOEAE RNA DETECTED IN THIS PATIENT'S SAMPLE. ? (REFERENCE RANGE/NORMAL VALUE: NOT DETECTED) ? NOTE: THIS TEST USES CONDUCTOR FREIGHT MEDIATED AMPLIFICATION METHOD TO DETECT rRNA FROM [...] OTHER AGENTS. URINE CHLAMYDIA AMP PROBE NEGATIVE [facility] Comment: NO CHLAMYDIA TRACHOMATIS RNA DETECTED IN THIS PATIENT'S SAMPLE. ? (REFERENCE RANGE/NORMAL VALUE: NOT DETECTED) 12/16/2011 1:11 PM EDT Narrative [facility] - 12/16/2011 1:11 PM EDT URINE CHLAMYDIA GC AMP PROBE us Grazyna Rios MD LAB MICROBIOLOGY - GENERAL ORDER JOHN Final Result [facility] [address] [place] [address], [place] from Last 3 Months or Most Recently Relevant to Health Maintenance
--- OUTSIDE RECORDS SUMMARY | 2024-10-03 11:51 | XMS_ITS | Encounter Summary ---
Author Organization [facility] Address [address] [place] [address] Phone Care Team Providers Care Animal Trainer Name Role Phone Grazyna Rios MD Primary Care Provider [phone] Encounter Details Date Type Department Care Team (Late st Contact Info) Description 01/01/2017 Conversion Encounter [facility] [place] [address] [place] [address] Social History Tobacco Use Types Packs/Day Years [...] on filedocumented in this encounter Care Teams Animal Trainer Relationship Specialty Start Date End Date Grazyna Rios MD [address] [place] [address] PCP - General 12/26/16 08/27/22 documented as of this encounter
--- OUTSIDE RECORDS SUMMARY | 2024-10-03 11:51 | XMS_ITS | Encounter Summary ---
Author Organization [facility] Address [address] [place] [address] Phone Care Team Providers Care Feed Manager Name Role Phone Grazyna Rios MD Primary Care Provider [phone] Encounter Details Date Type Department Care Team (Late st Contact Info) Description 09/27/2012 Documentation [facility] [place] [address], [place] [phone] Family Medicine, Physician [address] [place] [address] Social History Tobacco Use Types Packs/Day Years [...] on filedocumented in this encounter Care Teams Feed Manager Relationship Specialty Start Date End Date Grazyna Rios MD [address] [place] [address] [place] [address] PCP - General 12/26/16 08/27/22 documented as of this encounter
--- OUTSIDE RECORDS SUMMARY | 2024-10-03 11:51 | XMS_ITS | Encounter Summary ---
Author Organization [facility] Address [address] [place] [address] Phone Care Team Providers Care Gage Maker Name Role Phone Grazyna Rios MD Primary Care Provider [phone] Encounter Details Date Type Department Care Team (Late st Contact Info) Description 06/24/2012 Documentation [facility] [place] [address] [place], [place] [phone] Family Medicine, Physician [address] [place] [address] Social History Tobacco Use Types Packs/Day Years [...] on filedocumented in this encounter Care Teams Gage Maker Relationship Specialty Start Date End Date Grazyna Rios MD [address] [place] [address] [place] [address] PCP - General 12/26/16 08/27/22 documented as of this encounter
--- OUTSIDE RECORDS SUMMARY | 2024-10-03 11:51 | XMS_ITS | Clinical Summary ---
Author Organization [facility] Address [address] [place] [address] Care Team Providers Care Enterprise Systems Engineer Name Role Phone Unavailable Primary Care Provider [...]
== END 2024-10-03 11:03 | disposition home or self-care (01) ==
LOC: HO.MAMMO 11:02
PROVIDERS: PCP Internal Medicine; Visit Provider Internal Medicine
DX: N63.25 Unspecified lump in the left breast, overlapping quadrants (principal); N63.15 Unspecified lump in the right breast, overlapping quadrants
CPT/HCPCS: 76642

== ENCOUNTER 2024-10-17 15:13 | Outpatient (AMB) | payer OTHER, SELFPAY ==
--- NOTE | 2024-10-17 15:13 | MHC.OFFVIS ---
Intake Visit Reasons: colpo results Allergies sulfamethoxazole Allergy (Unknown, Verified 09/20/24 15:18) Unknown HPI Comments Details: The patient scheduled a telehealth visit post colpo for follow-up. The patient is doing well with no complaints. The pathology showed the following: A. Endocervix, curettage: Predominantly blood with few benign endocervical glandular epithelial cells, and rare benign squamous cells; may not be loss prevention representative of the endocervix. B. Cervix, 7:00, biopsy: Squamous and endocervical glandular mucosa with inflammation and reactive changes; negative for dysplasia. C. Cervix, 9:00, biopsy: Endocervical glandular mucosa; negative for dysplasia; no squamous mucosa present. D. Cervix, 11:00, biopsy: Endocervical glandular mucosa; negative for dysplasia; no squamous mucosa present. E. Cervix, 12:00, biopsy: Endocervical glandular mucosa, and scant squamous mucosa with reactive changes; negative for dysplasia. Comment: The patient's previous negative Pap test ([id number]) concurs with the current biopsy [facility] Medical History (Updated 10/17/24 @ 15:21 by Silviano Salgado MD) Vitamin D deficiency ASCUS with positive high risk HPV cervical Obesity (BMI 30-39.9) Asthma Migraine without aura Surgical History History of colposcopy Family History Father Alive and well Mother Hypertension Maternal Grandmother Breast cancer Maternal Aunt Breast cancer Maternal Grandfather Stomach cancer Family/Other Ovarian cancer Social History Alcohol intake: never Patient Tobacco Use Status: Never used Tobacco e-Cigarette/Vaping Use: Never Used service: No Current occupational status: employed 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[employer] Sexual 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/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 Gender identity: Female Cognitive needs: No Hearing needs: No Vision needs: No Female Reproductive History Menstrual Age of Menarche: 14 Review of Systems Const All systems reviewed & are unremarkable except as noted in HPI and below Reports as per HPI and Reports no additional complaints GI Reports no additional complaints Reports no additional complaints Telehealth Telehealth Telehealth Platform: [facility] Location of provider rendering services: practice address Location of patient: address on file Patient Identification confirmed using: Name, : Yes Telehealth method: video Patient verbally consented to treatment: Yes Patient verbally consented to billing insurance company: Yes Patient informed of any privacy concerns related to visit: Yes Minutes spent on Phone/Video with Pt.: 3 Assessment & Plan Assessment & Plan (1) 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 Discussed with the patient the sensitivity specificity, positive and negative predictive value in detecting cervical cancer in addition discussed the regression, persistence and progression rates. Recommended co-testing in 12 months, if cytology and or HPV are abnormal will proceed was colposcopy biopsy and endocervical curettage. Instructions given to the patient to schedule a co test appointment in 1 year. All questions answered the patient verbalized understanding. I spent a total of 20 minutes reviewing the chart, talking to the patient via video and documenting in the medical record. Coding Level of Care Code Tele Est Pt Level 3 (24892) Diagnoses HPV in female B97.7
--- OUTSIDE RECORDS SUMMARY | 2024-10-17 16:26 | XMS_ITS | Encounter Summary ---
Author Organization [facility] Address [address] [place] [address] Phone Care Team Providers Care Head Filter Tank Tender Helper Name Role Phone Grazyna Rios MD Primary Care Provider [phone] Encounter Details Date Type Department Care Team (Late st Contact Info) Description 06/24/2012 Documentation [facility] [place] [address], [place] [phone] Family Medicine, Physician [address] [place] [address] Social History Tobacco Use Types Packs/Day Years [...] on filedocumented in this encounter Care Teams Head Filter Tank Tender Helper Relationship Specialty Start Date End Date Grazyna Rios MD [address] [place] [address] [place] [address] PCP - General 12/26/16 08/27/22 documented as of this encounter
== END 2024-10-17 15:27 | disposition home or self-care (01) ==
LOC: HO.HWS 15:13
PROVIDERS: PCP Internal Medicine; Visit Provider Obstetrics & Gynecology
DX: R87.810 Cervical high risk human papillomavirus (HPV) DNA test positive (principal)
CPT/HCPCS: 99213

== ENCOUNTER → 2024-10-17 15:13 | Outpatient (BNVA) | payer OTHER, SELFPAY | PROVIDERS: PCP Internal Medicine; Visit Provider Obstetrics & Gynecology ==

== ENCOUNTER 2024-10-22 16:34 | Emergency (ER) | payer OTHER, SELFPAY ==
[2024-10-22 17:27] VITALS: BP 105/61; PULSE 98; RESP 18; TEMP 36.9; O2SAT 98; BMI 27.2
--- NOTE | 2024-10-22 17:27 | ED_ITS ---
HPI - Female Genitourinary General Chief complaint: GI Bleed Stated complaint: rectal pain Time Seen by Provider: 10/22/24 21:47 History of Present Illness ED Provider: John Paul SOOD Narrative: The patient is a generally healthy 33-year-old female who has been straining at stool over the last several days. She thought that she was constipated. She has developed significant pain with passage of stools and also blood in the toilet when she has a bowel movement. No fever, sweats, chills. No nausea or vomiting. She has never had significant problems with hemorrhoids in the past. She reports a history of irregular bowel movements. Related Data Previous Rx's ?Medication ?Instructions ?Recorded albuterol sulfate 90 mcg/actuation 2 puff inhalation Q6H PRN 02/24/23 aerosol inhaler shortness of breath or wheezing #6.7 grams dfnxhlzspy-mlkyvjiohvodo-kmsvyauq 1 cap PO TID PRN headache #30 caps 07/17/23 50 mg-300 mg-40 mg capsule (Fioricet) cholecalciferol (vitamin D3) 25 25 mcg PO DAILY 90 days #90 caps 10/23/23 mcg (1,000 unit) capsule ibuprofen 800 mg tablet 800 mg PO Q8H PRN pain #90 tabs 01/11/24 tirzepatide (weight loss) 12.5 12.5 mg (0.5 mL) subcut QWEEK 4 10/17/24 mg/0.5 mL subcutaneous pen injector weeks #2 mL hydrocortisone 1 %-pramoxine 1 % 1 appl [place] QID #10 grams 10/22/24 rectal foam (Proctofoam HC) polyethylene glycol 3350 17 17 g PO DAILY #238 grams 10/22/24 gram/dose oral powder (Miralax) Allergies Allergy/AdvReac Type Severity Reaction Status Date / Time sulfamethoxazole Allergy Unknown Unknown Verified 10/22/24 17:30 Review of Systems 2 Review of Systems: Yes all other systems are reviewed and are negative [facility] Past Medical History Medical History (Updated 10/23/24 @ 00:00 by Jaquan Solis) Vitamin D deficiency ASCUS with positive high risk HPV cervical Obesity (BMI 30-39.9) Asthma Migraine without aura Surgical History History of colposcopy Family History Family History Father Alive and well Mother Hypertension Maternal Grandmother Breast cancer Maternal Aunt Breast cancer Maternal Grandfather Stomach cancer Family/Other Ovarian cancer Social History Social History Alcohol intake: never Patient Tobacco Use Status: Never used Tobacco Smoked in Last 30 Days: No e-Cigarette/Vaping Use: Never Used Use of substances other than those prescribed or required for medical reasons: No Advance Directives: No Advance Directives Information Provided: No Patient : No service: No Current occupational status: employed 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[employer] Sexual 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/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 Gender identity: Female Cognitive needs: No Hearing needs: No Vision needs: No Physical Exam 2 Vital Signs: Vital Signs: Last Vital Signs Temp 98.4 F 10/22/24 22:26 Pulse 98 10/22/24 22:26 Resp 18 10/22/24 22:26 BP 105/61 10/22/24 22:26 Pulse Ox 98 10/22/24 22:26 O2 Del Method Room Air 10/22/24 22:26 BMI result Body Mass Index 27.2 Const: General: cooperative, healthy appearing, comfortable, no acute distress, well developed, alert, awake and Physically active O rientation/consciousness: patient oriented x3 HEENT: Face and sinus: Yes normal facial exam Mouth: Normal oral and palatal mucosa present Eyes: General: appearance normal, both eyes and all related structures Neck: Neck: Yes normal visual inspection and Yes full ROM Resp: Effort & Inspection: normal respiratory effort Auscultation: clear to auscultation bilaterally Cardio: Rate: regular rate Rhythm: regular rhythm Heart sounds: S1 normal heart sound present and S2 normal heart sound present GI: Other: The patient reports some tenderness to the lower abdomen and both lower quadrants but this report of tenderness that is not associated with any guarding or rebound. Overall I felt the abdomen seemed quite benign. Rectal exam revealed no obvious external hemorrhoids. No obvious anal fissures. Good rectal tone. There was no blood in the rectal vault. Skin: General skin exam: no rashes or lesions noted Neuro: General: patient oriented x3, gait normal, tone normal, moves all extremities, no focal motor deficits and CN's II-XI intact bilaterally Extrem: General: Yes no pedal edema and Yes no calf tenderness Course Course Course Narrative: This is a Rapid Medical Exam performed in triage by Nellie Gregorio PA-C. Full HPI, ROS and PE to be performed by primary ED provider. 33 yo F w/pmhx asthma, migraines, presenting to the ED c/o rectal pain during BM's x 5 days. states 2 weeks ago had diarrhea & then was constipated/straining - now admits to rectal bleeding, brbpr - only with BMs. Reports lower abd pain x today PE: NAD, nontoxic appearing, abdomen soft & nontender, no rebound or guarding Plan: labs, UA, occult stool Medical Decision Making Medical Decision Making MDM Narrative: The patient is a 33-year-old female who describes symptoms of discomfort with passage of stool and bright red blood per rectum after feeling constipated and straining at stool. Her lab testing is unremarkable. Clinically the patient looks quite well. I think she is having probable internal hemorrhoidal bleeding and probably some pain with the passage of stool related to hemorrhoidal issues as well. The patient will be prescribed Proctofoam and MiraLax and should contact the General surgery office for a follow up appointment in the next couple of weeks. Lab Data 10/22/24 18:37 10/22/24 18:37 Labs: Lab Results 10/22/24 Range/Units 18:37 WBC 7.9 (4.8-10.8) X10*3/uL RBC 4.76 (4.20-5.50) X10*6/uL Hgb 14.5 (12.0-16.0) g/dl Hct 40.2 (37.0-47.0) % MCV 84.5 (80.0-98.0) fL MCH 30.5 (27.0-33.0) pg MCHC 36.1 H (31.0-35.0) g/dl RDW 12.3 (11.0-16.0) % Plt Count 315 (160-400) X10*3/uL MPV 10.0 (9.4-12.3) fL Immature Gran % (Auto) 0.1 (0.0-0.4) % Neut % (Auto) 64.3 (45-73) % Lymph % (Auto) 28.9 (20-40) % [place] % (Auto) 5.2 (2-11) % Eos % (Auto) 1.1 (0-4) % Baso % (Auto) 0.4 (0-2) % Lymph # (Auto) 2.3 (1.2-4.9) X10*3/uL [place] # (Auto) 0.4 (0.1-1.2) X10*3/uL Eos # (Auto) 0.1 (0.0-0.4) X10*3/uL Baso # (Auto) 0.0 (0.0-0.2) X10*3/uL Abs Immat Gran (auto) 0.01 (0.00-0.03) X10*3/uL Absolute Neuts (auto) 5.1 (2.0-8.3) x10*3/uL Absolute Nucleated RBC 0.000 (0.0-0.012) X10*3/uL Nucleated RBC % (auto) 0.0 (0.0-0.2) /100WBC PT 13.0 H (10.9-12.4) SEC INR 1.1 (0.9-1.1) Sodium 140 (135-145) mmol/L Potassium 4.2 (3.3-5.1) mmol/L Chloride 110 H (96-108) mmol/L Carbon Dioxide 25 (22-29) mmol/L Anion Gap 9 L (12-20) BUN 11 (9-16) mg/dL Creatinine 0.87 (0.5-1.4) mg/dL Estim Creat Clear Calc 103.7 Estimated GFR > 60 Random Glucose 83 (60-115) mg/dL Calcium 9.7 D (8.4-10.2) mg/dL Magnesium 2.3 (1.6-2.6) mg/dL Total Bilirubin 1.5 H (0.0-1.0) mg/dL Direct Bilirubin 0.4 (0.0-0.5) mg/dL AST 18 (5-31) U/L ALT 15 (0-31) U/L Alkaline Phosphatase 45 (39-117) U/L Total Protein 7.5 (6.5-8.0) g/dL Albumin 4.9 (3.5-5.0) g/dL Lipase 19 (8-78) U/L Discharge Plan Discharge Clinical Impression: Rectal pain, Bright red blood per rectum Patient Disposition: Home, Self-Care Instructions: Hemorrhoids (ED) Additional Instructions: Your testing in the emergency room today is very reassuring. I think that you may be having bleeding from internal hemorrhoids. Please take MiraLax daily to help soften and regular eyes your stools. Please apply Proctofoam as prescribed as needed for rectal discomfort. Please contact the [place] [facility] surgery office tomorrow morning to make an appointment in the next week or 2 for re-evaluation of your symptoms. Also stay in touch with your regular doctor for additional advice as needed. Return to the emergency room if worse. Prescriptions: New Proctofoam HC 1-1 % foam 1 appl [place] QID Qty: 10 0RF polyethylene glycol 3350 [Miralax] 17 gram/dose powder 17 g PO DAILY Qty: 238 0RF No Action cnfzrcaozz-jkkyemzsvrbij-ahmq [Fioricet] 50-300-40 mg capsule 1 cap PO TID PRN (Reason: headache) Qty: 30 3RF ibuprofen 800 mg tablet 800 mg PO Q8H PRN (Reason: pain) Qty: 90 1RF Rx Instructions: Take with food and only as needed tirzepatide (weight loss) 12.5 mg/0.5 mL pen injector 12.5 mg subcut QWEEK 28 Days Qty: 2 0RF albuterol sulfate 90 mcg/actuation HFA aerosol inhaler 2 puff inhalation Q6H PRN (Reason: shortness of breath or wheezing) Qty: 6.7 0RF cholecalciferol (vitamin D3) 25 mcg (1,000 unit) capsule 25 mcg PO DAILY 90 Days Qty: 90 3RF Referrals: [facility] [place] General Surgeons [Provider Group] (Possible internal hemorrhoids) Charlie Naylor MD [Primary Care Provider] - Interventions: ED Discharge Assessment Last Done: 10/22/24 22:26 Discharge Date/Time: 10/22/24 22:27 Print Language: Kenyan
[2024-10-22 18:41] LABS: MANUAL DIFF FLAG NO
[2024-10-22 18:42] LABS: Basophils Percent Auto 0.4 % (0-2); Eosinophils Absolute Auto 0.1 X10*3/uL (0.0-0.4); Eosinophils Percent Auto 1.1 % (0-4); Hematocrit 40.2 % (37.0-47.0); Hemoglobin 14.5 g/dl (12.0-16.0); Imm Gran Abs Auto 0.01 X10*3/uL (0.00-0.03); Imm Gran Pct Auto 0.1 % (0.0-0.4); Lymphocytes Absolute Auto 2.3 X10*3/uL (1.2-4.9); Lymphocytes Percent Auto 28.9 % (20-40); Mean Corpuscular HGB Conc 36.1 g/dl (31.0-35.0); Mean Corpuscular Hemoglobin 30.5 pg (27.0-33.0); Mean Corpuscular Volume 84.5 fL (80.0-98.0); Monocytes Absolute Auto 0.4 X10*3/uL (0.1-1.2); Monocytes Percent Auto 5.2 % (2-11); Neutrophils Absolute Auto 5.1 x10*3/uL (2.0-8.3); Neutrophils Percent Auto 64.3 % (45-73); Platelet Count 315 X10*3/uL (160-400); Red Blood Count 4.76 X10*6/uL (4.20-5.50); Red Cell Distribution Width 12.3 % (11.0-16.0); White Blood Count 7.9 X10*3/uL (4.8-10.8)
[2024-10-22 18:48] LABS: INTERNATIONAL NORM RATIO 1.1 (0.9-1.1)
[2024-10-22 19:00] LABS: Alanine Aminotransferase 15 U/L (0-31); Albumin Level 4.9 g/dL (3.5-5.0); Alkaline Phosphatase 45 U/L (39-117); Anion Gap 9 (12-20); Aspartate Amino Transferase 18 U/L (5-31); Bilirubin Direct 0.4 mg/dL (0.0-0.5); Bilirubin Total 1.5 mg/dL (0.0-1.0); Blood Urea Nitrogen 11 mg/dL (9-16); Calcium 9.7 mg/dL (8.4-10.2); Carbon Dioxide 25 mmol/L (22-29); Chloride 110 mmol/L (96-108); Creatinine Clr Calc Pharmacy 103.7; Estimated Glomerular Filt Rate > 60; Glucose Random 83 mg/dL (60-115); Lipase 19 U/L (8-78); Magnesium 2.3 mg/dL (1.6-2.6); Potassium 4.2 mmol/L (3.3-5.1); Sodium 140 mmol/L (135-145); Total Protein 7.5 g/dL (6.5-8.0)
--- NOTE | 2024-10-22 22:00 | PC.NURSE ---
this rn at bedside with doing rectal exam. pt tolerated well. pt given warm wipes to assist with clean up
[2024-10-22 22:26] VITALS: BP 105/61; PULSE 98; RESP 18; TEMP 36.9; O2SAT 98
== END 2024-10-22 22:27 | disposition home or self-care (01) ==
PROVIDERS: Physician Assistant; Emergency Provider Emergency Medicine; PCP Internal Medicine
DX: K62.89 Other specified diseases of anus and rectum (principal); K62.5 Hemorrhage of anus and rectum; K59.00 Constipation, unspecified
CPT/HCPCS: 36415; 80048; 80076; 83690; 83735; 85025; 85610; 99283; 99284

== ENCOUNTER 2024-12-06 12:23 | Outpatient (AMB) | payer OTHER, SELFPAY ==
[2024-12-06 12:35] VITALS: BP 110/60; PULSE 80; O2SAT 98; BMI 27.1
--- NOTE | 2024-12-06 12:35 | MHC.PC.OV ---
Vital Signs 12/06/24 12:35 Height 5 ft 8 in Weight 178 lb 8 oz BMI 27.1 BP 110/60 Blood Pressure Location Lt brachial Position Sitting Pulse 80 Pulse Source Pulse Oximeter Pulse Oximetry (%) 98 Oxygen Delivery Method Room Air Intake Visit Reasons: PE- A1C needed Physician Recruiter Required: No Accompanied by: Self / Same As Patient Allergies sulfamethoxazole Allergy (Unknown, Verified 12/06/24 12:59) Unknown Medication List - Last Reconciled 12/06/24 by Charlie Naylor MD albuterol sulfate 90 mcg/actuation 2 puffs inhalation Q6H PRN mcqilasdcn-swpkodovahkqa-kepk 50-300-40 mg (Fioricet) 1 cap PO TID PRN cholecalciferol (vitamin D3) 25 mcg PO DAILY 90 days hydrocortisone-pramoxine 1-1 % (Proctofoam HC) 1 appl [place] QID ibuprofen 800 mg PO Q8H PRN polyethylene glycol 3350 (Miralax) 17 grams PO DAILY tirzepatide (weight loss) 12.5 mg (0.5 mL) subcut QWEEK 4 weeks Tobacco use date assessed: 12/06/24 Dental Screening Dental Screen Date: 12/06/24 Did you have a dental visit in the last 12 months?: Yes Did you have a dental problem in the last 6 months where you did not have access to dental care?: No Was dental information given to patient?: Patient has dentist HPI PE- A1C needed HPI Details Patient comes in today for her annual physical examination States that she currently feels okay She went to the ER last month for some rectal bleeding - was advised that her bleeding was likely due to hemorrhoids and she was instructed to start back on Miralax daily Was also prescribed some proctofoam, which relieved her rectal bleeding in a few days She is currently scheduled to be seen by surgery for her hemorroids early next month Patient states that she does not exercise/work out regularly but currently has a 1.5 year old child, who keeps her busy She denies any headaches or dizziness Denies any chest pains, no SOB No nausea/vomiting, no abdominal pain No change in bowel habits noted and she's had no further issues with rectal bleeding lately She denies any acute urinary symptoms Needs her Zepbound Rx refilled today - she has lost over 40 pounds already since she started on Zepbound about 5 months ago She had some labs done when she was at the ER last month States that she is also currently up-to-date with her yearly gynecology exam and pap smear [facility] Medical History (Updated 12/06/24 @ 14:07 by Charlie Naylor MD) Overweight (BMI 25.0-29.9) Vitamin D deficiency ASCUS with positive high risk HPV cervical Obesity (BMI 30-39.9) Asthma Migraine without aura Surgical History History of colposcopy Family History Father Alive and well Mother Hypertension Maternal Grandmother Breast cancer Maternal Aunt Breast cancer Maternal Grandfather Stomach cancer Family/Other Ovarian cancer Social History Housing: House Alcohol intake: never Patient Tobacco Use Status: Never used Tobacco e-Cigarette/Vaping Use: Never Used service: No Current occupational status: employed 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 1. Little interest or pleasure in doing things: not at all 2. Feeling down, depressed, or hopeless: not at all 3. Trouble falling or staying asleep, or sleeping too much: not at all 4. Feeling tired or having little energy: not at all 5. Poor appetite or overeating: not at all 6. Feeling bad about yourself - or that you are a failure or have let yourself or your family down: not at all 7. Trouble concentrating on things, such as reading the newspaper or watching television: not at all 8. Moving or speaking so slowly that other people could have noticed. Or the opposite - being so fidgety or restless that you have been moving around a lot more than usual: not at all 9. Thoughts that you would be better off or of hurting yourself in some way: not at all Total score: 0 Depression Screening Interpretation: Negative Depression Screening Done: Yes 33348 - PHQ-9 Billing: Yes Source: Developed by Drs. Forrest Shelton, Catrina Henderson, Lance Mata and colleagues, with an educational lachelle from [employer]. Thrive Questionnaire Date Thrive assessed: 12/06/24 I am a: Patient What is your living situation today?: I have a steady place to live Within the past 12 months, did the food you bought not last and you didn't have the money to get more?: Never true Within the past 12 months, did you worry whether your food would run out before you got money to buy more?: Never true Do you have trouble paying for medicines?: No Do you have trouble getting transportation to medical appointments?: No Do you have trouble paying your heating and electricity bill?: No Do you have trouble taking care of your child, family member or friend?: No Do you have trouble with day-to-day activities such as bathing, preparing meals, shopping, managing finances, etc.?: No Are you currently unemployed and looking for a job?: Yes Are you interested in more education?: Yes Please select the resources that you would like help with: None Currently or been in a relationship where the following occur: No concerns reported THRIVE Score: 0 AUDIT C Alcohol Use Questionnaire (AUDIT-C) 1. How often do you have a drink containing alcohol?: Monthly or less 2. How many drinks containing alcohol do you have on a typical day when you are drinking?: 1 or 2 3. How often do you have six or more drinks on one occasion?: Never Total Score: 1 Score Reviewed/Action Taken: Yes MAX-7 AMB Questionnaire MAX-7 Date MAX - 7 assessed: 12/06/24 Feeling nervous, anxious, or on edge: 0 = Not at all Not being able to stop or control worryin = Not at all Worrying too much about different things: 0 = Not at all Trouble relaxin = Not at all Being so restless that it is hard to sit still: 0 = Not at all Becoming easily annoyed or irritable: 0 = Not at all Feeling afraid as if something awful might happen: 0 = Not at all Total MAX-7 score (0-4 normal; 5-9 mild; 10-14 moderate; 15-21 severe): 0 Source: Developed by Drs. Forrest Shelton, Catrina Henderson, Lance Mata and colleagues, with an educational lachelle from [employer]. Review of Systems Const Denies chills, Denies fatigue, Denies fever(s), Denies headache(s) and Denies malaise Eyes Denies blurry vision, Denies change in vision, Denies irritation and Denies itchy eyes ENT Denies dysphagia, Denies dizziness, Denies otalgia, Denies headache(s), Denies nasal congestion, Denies neck pain, Denies odynophagia, Denies sinus pain and Denies sore throat Card Denies chest pain, Denies rapid heart rate, Denies irregular heart rhythm, Denies palpitations and Denies dyspnea Resp Denies chest congestion, Denies cough, Denies dyspnea and Denies wheezing GI Denies abdominal pain, Denies bloating, Denies constipation, Denies dysphagia, Denies heartburn, Denies diarrhea, Denies nausea, Denies odynophagia and Denies vomiting Denies hematuria, Denies urinary frequency, Denies dysuria, Denies urinary incontinence and Denies urinary urgency Musc Denies back pain, Denies arthralgias, Denies joint swelling, Denies muscle weakness and Denies neck pain Skin/Breast Denies breast pain, Denies breast mass, Denies change in pigmentation, Denies lesions, Denies rash and Denies unusual bruising Neuro Denies dizziness, Denies headache(s) and Denies paresthesias Psych Denies anxiety and Denies depression Endo Denies fatigue and Denies palpitations [place]/Lymph Denies easy bruising Aller/Immun Denies itchy eyes and Denies wheezing Physical exam (Primary Care) Vital Signs: Last Vital Signs Pulse 80 12/06/24 12:35 BP 110/60 12/06/24 12:35 Pulse Ox 98 12/06/24 12:35 Oxygen Delivery Method Room Air 12/06/24 12:35 BMI result Body Mass Index 27.1 Tobacco/Smoking Status: Tobacco use Status Tobacco use date assessed 12/06/24 12/06/24 12:41 Patient Tobacco Use Status Never used Tobacco 12/06/24 12:41 e-Cigarette/Vaping Use Never Used 12/06/24 12:41 PHQ-9: PHQ-9 Score PHQ-9: Total score 0 12/06/24 12:41 Depression Screening Interpretation: Negative Thrive Assessment: Date of Thrive Assessment Date Thrive assessed 12/06/24 12/06/24 12:41 Currently or been in a relationship where the following occur: No concerns reported Const General: no acute distress, alert and awake Orientation/consciousness: patient oriented x3 HENMT Head: Yes normocephalic and Yes atraumatic Ears: external ears normal, TM's normal bilaterally and EAC's normal General nose exam: No nasal discharge present Face and sinus: Yes normal facial exam and Yes sinuses nontender Teeth and gingiva: dentition normal Throat: Yes posterior oropharynx normal and Yes tonsils normal (no TP congestion) Eyes Eyelids: Yes eyelids normal Conjunctivae: conjunctivae normal Pupils: Equal, round and reactive pupils present EOM: EOMs intact bilaterally Neck Neck: Yes no lymphadenopathy and Yes supple Thyroid: Thyroid normal Resp Auscultation: clear to auscultation bilaterally, no rales and no wheezes Cardio Rate: regular rate Rhythm: regular rhythm Heart sounds: no murmurs GI Palpation (GI): Soft to palpation, nontender and No hepatosplenomegaly present Auscultation: normal bowel sounds General: Yes no CVA tenderness Back/Spine/Pelvis Back: no CVA tenderness Thoracic/Lumbar Spine: thoracic and lumbar spine normal to inspection Skin Lesions: no lesions Rashes: no rashes Neuro General: patient oriented x3, moves all extremities, no focal motor deficits and CN's II-XI intact bilaterally Cranial nerves: Yes Equal, round and reactive pupils present Cognition (Neuro): normal cognition Gait exam (Neuro): Normal gait present Extrem General: Yes no clubbing, cyanosis or edema Results Reviewed Results Reviewed: Laboratory Tests 10/22/24 18:37 WBC 7.9 Hgb 14.5 Hct 40.2 Plt Count 315 Sodium 140 Potassium 4.2 Creatinine 0.87 Estimated GFR > 60 Random Glucose 83 Calcium 9.7 D Magnesium 2.3 AST 18 ALT 15 Lipase 19 Coding Level of Care Code Est Pt Prev Care 18-39y(99019) Diagnoses Annual physical exam Z00.00 Mild intermittent asthma without complication J45.20 Asthma severity: mild Asthma persistence: intermittent Asthma complication type: uncomplicated Migraine without aura and without status migrainosus, not intractable G43.009 Status migrainosus presence: without status migrainosus Intractability: not intractable Vitamin D deficiency E55.9 Rectal bleeding K62.5 ASCUS with positive high risk HPV cervical R87.610; R87.810 Overweight (BMI 25.0-29.9) E66.3 Additional Codes PHQ-9 - 31407 - PHQ-9 Billing: Yes ([id number]) Assessment & Plan Assessment & Plan (1) Annual physical exam: Code(s): Z00.00 - Encounter for general adult medical examination without abnormal findings Category: Medical Plan: Results of her labs done at the ER last month reviewed and discussed with patient Will send her for some additional labs to complete her assessment and physical exam today She is currently up-to-date with her yearly gynecology exam and pap smear (2) Asthma: Code(s): J45.909 - Unspecified asthma, uncomplicated Category: Medical Qualifiers: Asthma severity: mild Asthma persistence: intermittent Asthma complication type: uncomplicated Qualified Code(s): J45.20 - Mild intermittent asthma, uncomplicated Plan: Controlled - patient states that she hardly has to use her rescue inhaler Continue Albuterol HFA 1 to 2 inhalations Q 6 hours PRN (3) Migraine without aura: Code(s): G43.009 - Migraine without aura, not intractable, without status migrainosus Category: Medical Qualifiers: Status migrainosus presence: without status migrainosus Intractability: not intractable Qualified Code(s): G43.009 - Migraine without aura, not intractable, without status migrainosus Plan: Her migraine headaches appear to be mostly menstrual migraine Reinforced avoidance of all potential migraine triggers as much as possible Continue Fioricet PRN for headaches (4) Vitamin D deficiency: Code(s): E55.9 - Vitamin D deficiency, unspecified Category: Medical Plan: Continue Vitamin D3 1000 units QD Will recheck her Vitamin D level for follow up (5) Rectal bleeding: Code(s): K62.5 - Hemorrhage of anus and rectum Category: Medical Plan: This is most likely due to (internal) hemorrhoids Patient states that her rectal bleeding has since resolved with Tx with Proctofoam Continue Miralax 17 gm QD - she is reminded that keeping herself from getting constipated and having to strain a lot during bowel movements can help avoid this as much as possible in the future She is also scheduled to be seen by surgery early next month for further evaluation and management of her hemorrhoids (6) ASCUS with positive high risk HPV cervical: Comment: 08/05 Pap negative 08/07 Pap negative/HPV E6 E7 positive, HPV 16/18/45 negative 08/08 ascus/HPV positive, colpo biopsy ECC negative 08/09 negative Pap/HPV positive, HPV 16/18 negative, colpo biopsy ECC negative Code(s): R87.610 - Atypical squamous cells of undetermined significance on cytologic smear of cervix (ASC-US); R87.810 - Cervical high risk human papillomavirus (HPV) DNA test positive Category: Medical Plan: Seen on her pap smear done in July 2023 She underwent colposcopy with Dr. Salgado in October 2023 - biopsies have all come back negative for dysplasia Follow up with gynecology as scheduled (7) Overweight (BMI 25.0-29.9): Code(s): E66.3 - Overweight Category: Medical Plan: Reinforced diet/exercise as tolerated/lose weight Continue Zepbound 12.5 mg SQ once a week - patient has already lost over 40 pounds since she started on Zepbound about 5 months ago Discussed goal weight of 155 to 160 lbs, at which she can try scaling back her weekly injections as instructed Plan Follow up in 6 months Orders: Orders Lipid Panel Today E78.00 - Pure hypercholesterolemia, unspecified, Z00.00 - Encounter for general adult medical examination without abnormal findings TSH reflex Free T4 Today E78.00 - Pure hypercholesterolemia, unspecified, Z00.00 - Encounter for general adult medical examination without abnormal findings UA CC w/rflx Micro + Cult Today R30.0 - Dysuria, Z00.00 - Encounter for general adult medical examination without abnormal findings Comprehensive [place]. Panel Fast Today E78.00 - Pure hypercholesterolemia, unspecified, Z00.00 - Encounter for general adult medical examination without abnormal findings Vitamin D 25-OH Total Today E55.9 - Vitamin D deficiency, unspecified, Z00.00 - Encounter for general adult medical examination without abnormal findings Medications: Refilled tirzepatide (weight loss) 12.5 mg (0.5 mL) subcut QWEEK 2 mL 0RF 4 weeks E66.9 - Obesity, unspecified
--- OUTSIDE RECORDS SUMMARY | 2024-12-06 13:24 | XMS_ITS | Clinical Summary ---
Author Organization [facility] Address [address] [place] [address] Care Team Providers Care Stripper Apprentice Name Role Phone Unavailable Primary Care Provider [...]
--- OUTSIDE RECORDS SUMMARY | 2024-12-06 13:24 | XMS_ITS | Encounter Summary ---
Author Organization [facility] Address [address] [place] [address] Phone Care Team Providers Care Hat Brim Curler Name Role Phone Grazyna Rios MD Primary Care Provider [phone] Encounter Details Date Type Department Care Team (Late st Contact Info) Description 06/24/2012 Documentation [facility] [place] Family Medicine [address], [place] [id number] Family Medicine, Physician [address] [place] [address] Social History Tobacco Use Types Packs/Day Years [...] on filedocumented in this encounter Care Teams Hat Brim Curler Relationship Specialty Start Date End Date Grazyna Rios MD [address] [place] [address] [place] [address] PCP - General 12/26/16 08/27/22 documented as of this encounter
== END 2024-12-06 13:13 | disposition home or self-care (01) ==
LOC: HO.HMCH 12:24
PROVIDERS: PCP Internal Medicine; Visit Provider Internal Medicine
DX: Z00.00 Encounter for general adult medical examination without abnormal findings (principal); J45.20 Mild intermittent asthma, uncomplicated; G43.009 Migraine without aura, not intractable, without status migrainosus; E55.9 Vitamin D deficiency, unspecified; K62.5 Hemorrhage of anus and rectum; R87.610 Atypical squamous cells of undetermined significance on cytologic smear of cervix (ASC-US); R87.810 Cervical high risk human papillomavirus (HPV) DNA test positive; E66.3 Overweight

== ENCOUNTER → 2024-12-06 12:23 | Outpatient (BNVA) | payer OTHER, SELFPAY | PROVIDERS: PCP Internal Medicine; Visit Provider Internal Medicine | DX: Z00.00 Encounter for general adult medical examination without abnormal findings (principal); K64.9 Unspecified hemorrhoids; J45.20 Mild intermittent asthma, uncomplicated; G43.009 Migraine without aura, not intractable, without status migrainosus; E55.9 Vitamin D deficiency, unspecified; K62.5 Hemorrhage of anus and rectum; R87.610 Atypical squamous cells of undetermined significance on cytologic smear of cervix (ASC-US); R87.810 Cervical high risk human papillomavirus (HPV) DNA test positive; E66.3 Overweight; E78.00 Pure hypercholesterolemia, unspecified; R30.0 Dysuria; Z68.27 Body mass index [BMI] 27.0-27.9, adult | CPT/HCPCS: 96127 ==

== ENCOUNTER 2024-12-09 10:20 | Outpatient (REF) | payer OTHER, SELFPAY ==
--- OUTSIDE RECORDS SUMMARY | 2024-12-09 10:35 | XMS_ITS | Encounter Summary ---
Author Organization [facility] Address [address] [place] [address] Phone Care Team Providers Care Per Diem Registered Nurse Name Role Phone Grazyna Rios MD Primary Care Provider [phone] Encounter Details Date Type Department Care Team (Late st Contact Info) Description 06/24/2012 Documentation [facility] [place] Family Medicine [address], [place] [id number] Family Medicine, Physician [address] [place] [address] Social History Tobacco Use Types Packs/Day Years [...] on filedocumented in this encounter Care Teams Per Diem Registered Nurse Relationship Specialty Start Date End Date Grazyna Rois MD [address] [place] [address] [place] [address] PCP - General 12/26/16 08/27/22 documented as of this encounter
--- OUTSIDE RECORDS SUMMARY | 2024-12-09 10:35 | XMS_ITS | Clinical Summary ---
Author Organization [facility] Address [address] [place] [address] Care Team Providers Care Trade Facilitator Name Role Phone Unavailable Primary Care Provider [...]
[2024-12-09 11:05] LABS: Appearance Urine Cloudy; Glucose Urine UA Negative (Negative); PH 5.5 (5.0-9.0); Specific Gravity - Urine 1.025 (1.005-1.025); UMIC TRIGGER UACC YES
[2024-12-09 11:17] LABS: UACC Culture Trigger YES
[2024-12-09 11:19] LABS: Alanine Aminotransferase 18 U/L (0-31); Albumin Level 4.4 g/dL (3.5-5.0); Alkaline Phosphatase 42 U/L (39-117); Anion Gap 9 (12-20); Aspartate Amino Transferase 18 U/L (5-31); Blood Urea Nitrogen 6 mg/dL (9-16); Calcium 8.9 mg/dL (8.4-10.2); Carbon Dioxide 24 mmol/L (22-29); Chloride 113 mmol/L (96-108); Cholesterol 169 mg/dL (<200); Estimated Glomerular Filt Rate > 60; HDL Cholesterol 39 mg/dL (>40); Potassium 3.8 mmol/L (3.3-5.1); Sodium 142 mmol/L (135-145); Total Protein 6.7 g/dL (6.5-8.0); Triglycerides 76 mg/dL (<150)
[2024-12-09 12:25] LABS: Free T4 (Free Thyroxine) 0.83 ng/dL (0.71-1.85)
== END 2024-12-09 10:21 | disposition home or self-care (01) ==
LOC: HO.LAB 10:20
PROVIDERS: PCP Internal Medicine; Visit Provider Internal Medicine
DX: Z00.00 Encounter for general adult medical examination without abnormal findings (principal); E78.00 Pure hypercholesterolemia, unspecified; E55.9 Vitamin D deficiency, unspecified; R30.0 Dysuria
CPT/HCPCS: 36415; 80053; 80061; 81001; 81003; 82306; 84439; 84443; 87086

== ENCOUNTER 2024-12-19 09:58 | Outpatient (AMB) | payer OTHER, SELFPAY ==
--- NOTE | 2024-12-19 10:03 | MHC.OFFVIS ---
Vital Signs 12/19/24 10:05 Height 5 ft 8 in Weight 177 lb BMI 26.9 BP 115/61 Blood Pressure Location Rt brachial Position Sitting Pulse 88 Intake Visit Reasons: possible internal hemorrhoids Intake Note: Patient seen at [facility] [place] ED for rectal bleeding. Referred for evaluation and treatment of hemorrhoids. Patient c/o: rx's proctofoam, Miralax. Reports some relief with txt. Cnc Manager Required: No Accompanied by: Self / Same As Patient Allergies sulfamethoxazole Allergy (Unknown, Verified 12/19/24 10:04) Unknown Medication List - Last Reconciled 12/19/24 by Tad Paredes MD albuterol sulfate 90 mcg/actuation 2 puffs inhalation Q6H PRN apjkbntlcn-chyzovgddlsza-kcef 50-300-40 mg (Fioricet) 1 cap PO TID PRN cholecalciferol (vitamin D3) 25 mcg PO DAILY 90 days hydrocortisone-pramoxine 1-1 % (Proctofoam HC) 1 appl MS QID ibuprofen 800 mg PO Q8H PRN polyethylene glycol 3350 (Miralax) 17 grams PO DAILY tirzepatide (weight loss) 12.5 mg (0.5 mL) subcut QWEEK 4 weeks HPI HPI possible internal hemorrhoids: Details: 53 year old female referred for question of internal hemorrhoids. She says she went to the ER about 2-3 months ago because of has a blood per rectum. She had discomfort at that time as well with bowel movements. She says that her bowel movements were ?painful? then. She says that for the past month, she has not noticed the above issues anymore. She does state that once in a while she would notice some discomfort with bowel movements still She says that she has had irregular bowel movements for most of her life. She denies any palpable mass outside her anus. [facility] Medical History (Updated 12/19/24 @ 10:40 by Tad Paredes MD) Internal bleeding hemorrhoids Overweight (BMI 25.0-29.9) Vitamin D deficiency ASCUS with positive high risk HPV cervical Obesity (BMI 30-39.9) Asthma Migraine without aura Surgical History History of colposcopy Family History Father Alive and well Mother Hypertension Maternal Grandmother Breast cancer Maternal Aunt Breast cancer Maternal Grandfather Stomach cancer Family/Other Ovarian cancer Social History Housing: House Alcohol intake: never Patient Tobacco Use Status: Never used Tobacco e-Cigarette/Vaping Use: Never Used service: No Current occupational status: employed 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[employer] Sexual 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/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 Gender identity: Female Cognitive needs: No Hearing needs: No Vision needs: No Female Reproductive History Menstrual Age of Menarche: 14 Review of Systems Const Denies chills and Denies fever(s) Card Denies chest pain, Denies dyspnea and Denies dyspnea on exertion Resp Denies cough, Denies dyspnea and Denies dyspnea on exertion GI Reports hematochezia and Denies change in bowel habits Denies hematuria Musc Denies back pain and Denies limited range of motion Neuro Denies focal weakness and Denies convulsions Psych Denies depression and Denies mood swings Physical Exam Vital Signs: Last Vital Signs Pulse 88 12/19/24 10:05 BP 115/61 12/19/24 10:05 BMI result Body Mass Index 26.9 Const General: comfortable and no acute distress Orientation/consciousness: patient oriented x3 Neck Neck: Yes no lymphadenopathy Resp Auscultation: clear to auscultation bilaterally Cardio Rhythm: regular rhythm GI Other: Rectal exam shows small external hemorrhoids anteriorly Palpation (GI): Soft to palpation, nontender and no guarding Neuro General: patient oriented x3 Office Procedures Anoscopy She was in kneeling abelardo-knife position. The anoscope was gently inserted. A full examination of the entire anal canal was done. She did have multiple small internal hemorrhoids. There was no significant bleeding seen. There were no lesions. There was no fissure or ulceration. There was no induration on digital exam. She did not not complain of significant tenderness. [id number] Assessment & Plan Assessment & Plan (1) Internal bleeding hemorrhoids: Code(s): K64.8 - Other hemorrhoids Category: Medical Plan: She describes node seeing small amounts of blood per rectum with bowel movements about 2 months ago. She also says she had anal discomfort at that time. She says her symptoms have improved significantly over the past month Current exam including anoscopy shows small external hemorrhoids and internal hemorrhoids as well. I would not recommend proceeding with hemorrhoidectomy or rubber banding at this time especially with the absence of significant symptoms currently. I have recommended for her to take some fiber supplementation with Metamucil in view of her long history of irregular bowel habits I told her that if she has worsening symptoms with the hemorrhoids, she should come back to the office to be re-evaluated. She is comfortable with the plan as above. Coding Level of Care Code New Pt Level 3 (04421) Diagnoses Internal bleeding hemorrhoids K64.8 CPT Codes Details - CPT: 73680-[id number] ([id number])
[2024-12-19 10:05] VITALS: BP 115/61; PULSE 88; BMI 26.9
--- OUTSIDE RECORDS SUMMARY | 2024-12-19 10:38 | XMS_ITS | Encounter Summary ---
Author Organization [facility] Address [address] [place] [address] Phone Care Team Providers Care Records Analyst Name Role Phone Grazyna Rios MD Primary Care Provider [phone] Encounter Details Date Type Department Care Team (Late st Contact Info) Description 06/24/2012 Documentation [facility] [place] [address] [place], [place] [phone] Family Medicine, Physician [address] [place] [address] Social History Tobacco Use Types Packs/Day Years [...] on filedocumented in this encounter Care Teams Records Analyst Relationship Specialty Start Date End Date Grazyna Rios MD [address] [place] [address] [place] [address] PCP - General 12/26/16 08/27/22 documented as of this encounter
--- OUTSIDE RECORDS SUMMARY | 2024-12-19 10:38 | XMS_ITS | Clinical Summary ---
Author Organization [facility] Address [address] [place] [address] Care Team Providers Care Medical Imaging Specialist Name Role Phone Unavailable Primary Care Provider [...]
== END 2024-12-19 10:27 | disposition home or self-care (01) ==
LOC: HO.HGS 09:58
PROVIDERS: PCP Internal Medicine; Visit Provider Surgery
DX: K64.8 Other hemorrhoids (principal)
CPT/HCPCS: 46600; 99203

== ENCOUNTER → 2024-12-19 09:58 | Outpatient (BNVA) | payer OTHER, SELFPAY | PROVIDERS: PCP Internal Medicine; Visit Provider Surgery | DX: K64.8 Other hemorrhoids (principal) | CPT/HCPCS: 46600; 99202 ==

== ENCOUNTER 2024-12-31 21:09 | Inpatient (IN) | payer OTHER, SELFPAY ==
--- NOTE | ~2024-12-31 | US_ITS ---
CLINICAL HISTORY: RUQ pain epigastric, elvated LFTs US abdomen limited Comparison: None provided Findings: The visualized pancreas is normal. Pancreatic body and tail are distally obscured. The aorta and inferior vena cava are normal caliber. The liver is normal in size and echotexture. There is no intrahepatic bile duct dilatation. Gallbladder wall thickness measures 5 mm. There is no pericholecystic fluid Multiple echogenic gallstones are present. The common duct is 3 mm in diameter. There is sonographic Scott sign. The main portal vein is antegrade. The right kidney is 9.9 cm in length. No ascites. IMPRESSION: Cholelithiasis with mild gallbladder wall thickening. No pericholecystic fluid. This may represent acute or chronic cholecystitis. No evidence of choledocholithiasis. This document has been electronically signed by: Peter Duran III, MD PHD on 01/01/2025 02:20:39
[2024-12-31 21:31] VITALS: BP 118/56; PULSE 85; RESP 20; TEMP 36.6; O2SAT 100; BMI 25.1
[2024-12-31 23:30] LABS: MANUAL DIFF FLAG NO
[2024-12-31 23:31] LABS: Hematocrit 37.4 % (37.0-47.0); Hemoglobin 13.9 g/dl (12.0-16.0); Imm Gran Abs Auto 0.06 X10*3/uL (0.00-0.03); Imm Gran Pct Auto 0.4 % (0.0-0.4); Lymphocytes Absolute Auto 1.5 X10*3/uL (1.2-4.9); Mean Corpuscular HGB Conc 37.2 g/dl (31.0-35.0); Mean Corpuscular Hemoglobin 31.1 pg (27.0-33.0); Mean Corpuscular Volume 83.7 fL (80.0-98.0); NRBC Abs Auto 0.000 X10*3/uL (0.0-0.012); NRBC Pct Auto 0.0 /100WBC (0.0-0.2); Platelet Count 315 X10*3/uL (160-400); Red Blood Count 4.47 X10*6/uL (4.20-5.50); White Blood Count 15.8 X10*3/uL (4.8-10.8)
[2024-12-31 23:52] LABS: Alanine Aminotransferase 107 U/L (0-31); Albumin Level 5.0 g/dL (3.5-5.0); Alkaline Phosphatase 99 U/L (39-117); Anion Gap 15 (12-20); Aspartate Amino Transferase 178 U/L (5-31); Blood Urea Nitrogen 10 mg/dL (9-16); Calcium 9.5 mg/dL (8.4-10.2); Carbon Dioxide 23 mmol/L (22-29); Chloride 109 mmol/L (96-108); Creatinine Clr Calc Pharmacy 99.6; Estimated Glomerular Filt Rate > 60; Potassium 4.0 mmol/L (3.3-5.1); Sodium 143 mmol/L (135-145); Total Protein 7.4 g/dL (6.5-8.0)
[2025-01-01] VITALS (12 sets, daily range): BP systolic 90–138; BP diastolic 45–79; PULSE 56–87; RESP 11–20; TEMP 36.3–37; O2SAT 95–100; BMI 24.8
[2025-01-01 00:47] LABS: Lipase 23 U/L (8-78)
[2025-01-01] MEDS: Lactated Ringers 1,000 ML 999 ML IV (02:24)
--- NOTE | 2025-01-01 02:24 | ED_ITS ---
HPI - Abdominal Pain General Chief Complaint: Abdominal Pain Stated Complaint: vomiting,abd pain Time Seen by Provider: 01/01/25 01:56 Source: patient and old records reviewed Mode of arrival: ambulatory Limitations: no limitations History of Present Illness ED Provider: NOREEN SOOD narrative: 34 yo female with PMH of asthma/migraine here with c/o eating dill pickles at 5pm tonight then severe abrupt onset RUQ pain with n/v. She has never had this before. No diarrhea. No hx of this in the past. She has not had surgery before. While waiting the pain has subsided. It was severe in the RUQ. She had an US while in triage and stated the scan was very painful. MD elicited complaint: abdominal pain Pertinent past history: none Onset (ago): hour(s) (5pm ) Pain Consistency: colicky Location: RUQ Severity: severe Quality: stabbing Migration to: no migration Exacerbating factors: eating Relieving factors: nothing Context: other Associated symptoms: nausea Related Data Previous Rx's ?Medication ?Instructions ?Recorded albuterol sulfate 90 mcg/actuation 2 puff inhalation Q 6H PRN 02/24/23 aerosol inhaler shortness of breath or wheez ing #6.7 grams alldtvlobl-ganacinpxbazx-thigpyyy 1 cap PO TID PRN hea dache #30 caps 07/17/23 50 mg-300 mg-40 mg capsule (Fioricet) cholecalciferol (vitamin D3) 25 25 mcg PO DAILY 90 day s #90 caps 10/23/23 mcg (1,000 unit) capsule hydrocortisone 1 %-pramoxine 1 % 1 appl [place] QID #10 gra ms 10/22/24 rectal foam (Proctofoam HC) polyethylene glycol 3350 17 17 g PO DAILY #238 grams 0 10/22/24 gram/dose oral powder (Miralax) ibuprofen 800 mg tablet 800 mg PO Q8H PRN pain #90 t abs 11/19/24 tirzepatide (weight loss) 12.5 12.5 mg (0.5 mL) subcut QWEEK 4 12/06/24 mg/0.5 mL subcutaneous pen injector weeks #2 mL psyllium seed (sugar) oral powder 1 tbsp PO DAILY #1,2 54 grams 12/19/24 (Metamucil (sugar) oral powder) Allergies Allergy/AdvReac Type Severity Reaction Status Date / Time sulfamethoxazole Allergy Unknown Unknown Verified 12/31/24 21:33 Review of Systems Review of Systems Constitutional : No Weight loss, No Fever, No Chills ENT/Mouth : No sore throat, No Rhinorrhea Eyes: No Swelling, No Redness Cardiovascular : No Chest Pain, No SOB, NoEdema Respiratory : No Cough, No Sputum, No Wheezing Gastrointestinal : Positive Nausea, Positive Vomiting, no Diarrhea, positive abdominal Pain, No Hematochezia, No Melena Genitourinary : No Dysuria, No Urinary Frequency, No Hematuria, No Urgency Musculoskeletal : No joint pain, No Myalgias, No Joint Swelling Skin : No Skin Lesions, No rash Neuro : No Weakness, No Numbness, No Dizziness, No Headache All other systems reviewed and are negative. [facility] Past Medical History Attestation statement: The following information was validated with the patient. Source: old records reviewed Medical History Internal bleeding hemorrhoids Overweight (BMI 25.0-29.9) Vitamin D deficiency ASCUS with positive high risk HPV cervical Obesity (BMI 30-39.9) Asthma Migraine without aura Surgical History History of colposcopy Family History Family History Father Alive and well Mother Hypertension Maternal Grandmother Breast cancer Maternal Aunt Breast cancer Maternal Grandfather Stomach cancer Family/Other Ovarian cancer Social History Social History Housing: House Alcohol intake: never Patient Tobacco Use Status: Never used Tobacco e-Cigarette/Vaping Use: Never Used service: No Current occupational status: employed 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 Oriented X3. No acute distress. Eyes: Pupils equal, round and reactive to light. ENT: Pharynx normal. Neck: Normal inspection. Neck supple. CVS: Normal heart rate and rhythm. Pulses normal. Respiratory: No respiratory distress. Breath sounds normal. Abdomen: Soft and moderate ttp in RUQ + wiggins's sign Skin: Skin warm and dry. Normal skin color. Normal skin turgor. Extremities: No lower extremity edema. No calf ttp Neuro: Oriented X 3. No motor deficit. No sensory deficit. CN2-12 intact Course Course Course Narrative: infected suspected 0205am Medical Decision Making Medical Decision Making [facility] Narrative: 34 yo female with PMH of asthma and migraines here with abrupt onset RUQ pain with n/v after eating pickles. Her exam is concerning for biliary colic, gastritis, pancreatitis. Will hydrate, provide toradol, US ordered Differential Diagnosis Differential Diagnoses: The differential diagnosis associated with the presentation includes biliary colic, pancreatitis, gastritis Admission/Observation Consideration of admission/observation: Escalation of care including admission/observation considered admit for acute cholecystitis Consult Healthcare Provider Management of the patient was discussed with: Robotics Mechanic (Dr. Poon aware she will admit) Lab Data [facility] Lab Attestation statement: I reviewed the patient's lab results. 12/31/24 23:25 12/31/24 23:25 Labs: Lab Results 12/31/24 Range/Units 23:25 WBC 15.8 H (4.8-10.8) X10*3/uL RBC 4.47 (4.20-5.50) X10*6/uL Hgb 13.9 (12.0-16.0) g/dl Hct 37.4 (37.0-47.0) % MCV 83.7 (80.0-98.0) fL MCH 31.1 (27.0-33.0) pg MCHC 37.2 H (31.0-35.0) g/dl RDW 12.3 (11.0-16.0) % Plt Count 315 (160-400) X10*3/uL MPV 9.7 (9.4-12.3) fL Immature Gran % (Auto) 0.4 (0.0-0.4) % Neut % (Auto) 86.3 H (45-73) % Lymph % (Auto) 9.3 L (20-40) % Luce % (Auto) 3.8 (2-11) % Eos % (Auto) 0.1 (0-4) % Baso % (Auto) 0.1 (0-2) % Lymph # (Auto) 1.5 (1.2-4.9) X10*3/uL Luce # (Auto) 0.6 (0.1-1.2) X10*3/uL Eos # (Auto) 0.0 (0.0-0.4) X10*3/uL Baso # (Auto) 0.0 (0.0-0.2) X10*3/uL Abs Immat Gran (auto) 0.06 H (0.00-0.03) X10*3/uL Absolute Neuts (auto) 13.6 H (2.0-8.3) x10*3/uL Absolute Nucleated RBC 0.000 (0.0-0.012) X10*3/uL Nucleated RBC % (auto) 0.0 (0.0-0.2) /100WBC Sodium 143 (135-145) mmol/L Potassium 4.0 (3.3-5.1) mmol/L Chloride 109 H (96-108) mmol/L Carbon Dioxide 23 (22-29) mmol/L Anion Gap 15 (12-20) BUN 10 (9-16) mg/dL Creatinine 0.81 (0.5-1.4) mg/dL Estim Creat Clear Calc 99.6 Estimated GFR > 60 Random Glucose 102 (60-115) mg/dL Calcium 9.5 D (8.4-10.2) mg/dL Total Bilirubin 2.1 H (0.0-1.0) mg/dL AST 178 H (5-31) U/L ALT 107 H (0-31) U/L Alkaline Phosphatase 99 (39-117) U/L Total Protein 7.4 (6.5-8.0) g/dL Albumin 5.0 (3.5-5.0) g/dL Lipase 23 (8-78) U/L Beta HCG, Quant < 2 mIU/mL Independent Interpretation I performed an independent interpretation of an: Ultrasound (cholecystitis) Radiology Impression Discussion of test interpretation with radiology: I have reviewed the radiologist's reading. Independent Historian Clinical information obtained from an independent historian. History obtained from or confirmed by: Spouse External Record Review External record reviewed: Outpatient record Medications Administered Generic Name Dose Route Start Last Admin Trade Name Freq PRN Reason Stop Dose Admin Lactated Ringer's 1,000 mls @ 999 mls/hr 01/01/25 01:56 01/01/25 02:24 Lr IV 01/01/25 02:56 999 mls/hr .Q1H1M ONE Administration Discontinued Medications Generic Name Dose Route Start Last Admin Trade Name Freq PRN Reason Stop Dose Admin Piperacillin Sod/Tazobactam 50 mls @ 100 mls/hr 01/01/25 01:56 01/01/25 02:25 Sod 3.375 gm/ Sodium Chloride IV 01/01/25 02:25 100 mls/hr ONCE ONE Administration Ketorolac Tromethamine 15 mg 01/01/25 01:56 01/01/25 02:25 Ketorolac Tromethamine 15 Mg/Ml Vial IVPUSH 01/01/25 01:57 15 mg ONCE ONE Administration Ondansetron HCl 4 mg 01/01/25 01:56 01/01/25 02:25 Ondansetron Hcl 4 Mg/2 Ml Vial IVPUSH 01/01/25 01:57 4 mg ONCE ONE Administration Discharge Plan Discharge Clinical Impression: Acute cholecystitis Nausea & vomiting Qualifiers: Vomiting type: unspecified Qualified Code(s): R11.2 - Nausea with vomiting, unspecified Elevated WBC count Qualifiers: Leukocytosis type: unspecified Qualified Code(s): D72.829 - Elevated white blood cell count, unspecified Patient Disposition: Admitted As Inpatient Print Language: Cameroonian
[2025-01-01] MEDS: Lactated Ringers 1,000 ML 80 ML IVCONT (03:49)
--- NOTE | 2025-01-01 10:05 | PC.NURSE ---
Antibiotics initiated as ordered at this time. LR infusing at 80 ml/hour. Duplicate order of LR at 100 ml/hour in [facility]. Reached out to hospitalist regarding both orders for clarification. Awaiting response.
--- NOTE | 2025-01-01 10:08 | PC.NURSE ---
Spoke with Dr. Poon regarding LR orders. Per provider, continue infusing LR at 80 ml/hour. 100 ml/hour order entered as not given by this RN.
[2025-01-01 12:41] LABS: Appearance Urine Clear; Glucose Urine UA Negative (Negative); PH 5.5 (5.0-9.0); Specific Gravity - Urine 1.015 (1.005-1.025); UMIC TRIGGER UACC YES
--- NOTE | 2025-01-01 13:06 | PM.HPGS ---
History of Present Illness History of Present Illness Date of Service: 01/01/25 Chief complaint: Abdominal Pain Narrative: Cynthia Means is a 34 year old female who came to the ER with a 12 hr history of epigastric abdominal pain and nausea and vomiting and elevated wbc and lfts and tender in the ruq area. CT scan shows stones and findings consistent with cholecystitis. she has never had pain like this before and she has a sister who had her GB out. Feels better today but insulation board back tender in RUQ area. No chest pain, resp issues, urinary symptoms. Review of Systems Review of Systems: Yes all other systems are reviewed and are negative [facility] Past Medical History Medical History Internal bleeding hemorrhoids Overweight (BMI 25.0-29.9) Vitamin D deficiency ASCUS with positive high risk HPV cervical Obesity (BMI 30-39.9) Asthma Migraine without aura Family History Family History Father Alive and well Mother Hypertension Maternal Grandmother Breast cancer Maternal Aunt Breast cancer Maternal Grandfather Stomach cancer Family/Other Ovarian cancer Surgical History Surgical History History of colposcopy Social History Social History Housing: House Alcohol intake: current Alcohol intake frequency: holidays/special occasions only Alcohol type: beer Patient Tobacco Use Status: Never used Tobacco Smoked in Last 30 Days: Yes e-Cigarette/Vaping Use: Never Used Use of substances other than those prescribed or required for medical reasons: No Advance Directives: No service: No Current occupational status: employed 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 Gender identity: Female Cognitive needs: No Hearing needs: No Vision needs: No Meds Allergies Allergy/AdvReac Type Severity Reaction Status Date / Time sulfamethoxazole Allergy Unknown Unknown Verified 12/31/24 21:33 Active Medications: Current Medications Acetaminophen (Acetaminophen 325 Mg Tablet) 650 mg PO Q6H PRN PRN Reason: Pain, Mild 1-3,fever,headache Lactated Ringer's (Lr) 1,000 mls @ 80 mls/hr IVCONT .[id number] MARÍA ELENA Last Admin: 01/01/25 03:49 Dose: 80 mls/hr Lactated Ringer's (Lr) 1,000 mls @ 100 mls/hr IVCONT .Q10H [facility] Last Admin: 01/01/25 10:01 Dose: Not Given Piperacillin Sod/Tazobactam (Sod 3.375 gm/ Sodium Chloride) 50 mls @ 100 mls/hr IV Q6H [facility] Last Infusion: 01/01/25 10:40 Dose: Infused Melatonin (Melatonin 3 Mg Tablet) 6 mg PO BEDTIME PRN PRN Reason: Insomnia Morphine Sulfate (Morphine Sulfate 4 Mg/Ml Cartridge) 3 mg IVPUSH RQ4H PRN; Protocol PRN Reason: Pain, Severe (Pain Scale 7-10) Ondansetron HCl (Ondansetron Hcl 4 Mg/2 Ml Vial) 4 mg IVPUSH RQ6H PRN PRN Reason: Nausea and Vomiting Sodium Chloride (0.9 % Sodium Chloride Flush 3 Ml Syringe) 3 ml IVFLUSH QSHIFT [facility] Physical Exam Vital Signs: Vital Signs: Last Vital Signs Temp 97.8 F 01/01/25 12:08 Pulse 60 01/01/25 12:08 Resp 14 01/01/25 12:08 BP 96/50 L 01/01/25 12:23 Pulse Ox 95 01/01/25 12:08 O2 Del Method Room Air 01/01/25 12:08 BMI result Body Mass Index 25.1 GI: Other: abdomen is soft nondistended tender in RUQ no peritoneal signs. Results Results Labs: Short CBC 12/31/24 Range/Units 23:25 WBC 15.8 H (4.8-10.8) X10*3/uL Hgb 13.9 (12.0-16.0) g/dl Hct 37.4 (37.0-47.0) % Plt Count 315 (160-400) X10*3/uL BMP 12/31/24 23:25 Sodium 143 Potassium 4.0 Chloride 109 H Carbon Dioxide 23 BUN 10 Creatinine 0.81 Calcium 9.5 D Liver Function 12/31/24 Range/Units 23:25 Total Bilirubin 2.1 H (0.0-1.0) mg/dL AST 178 H (5-31) U/L ALT 107 H (0-31) U/L Alkaline Phosphatase 99 (39-117) U/L Albumin 5.0 (3.5-5.0) g/dL Urine 01/01/25 Range/Units 12:21 Urine Color Yellow Urine Appearance Clear Urine pH 5.5 (5.0-9.0) Ur Specific [place] 1.015 (1.005-1.025) Urine Protein Negative (Neg-Trace) mg/dL Urine Glucose (UA) Negative (Negative) mg/dL Assessment and Plan (1) Acute cholecystitis: Status: Acute Plan 34 year old female with acute cholecystitis - plan for lap douglas - risks and benefits discussed with the pt including but not only bleeding infection bowel injury duct injury other organ injury bile leak and despite this she wishes to proceed. Quality Stroke Does the patient have a stroke diagnosis?: No VTE Prior VTE?: No VTE Risk Level:: Surgical - low VTE Device Contraindication: N/A - Device Ordered VTE Drug Contraindication: N/A - Med Ordered Procedures Date of Service Date of Service: 01/01/25
--- NOTE | 2025-01-01 13:20 | PHA.MEDREC ---
Pharmacy Consult ? Medication Reconciliation Pharmacy has completed the medication reconciliation.Med rec all set, spoke to patient and compared with pharmacy claims history
--- NOTE | 2025-01-01 13:49 | P.CONAN_ITS ---
[facility] Active Problems Active Problems: All Active Problems Elevated WBC count (Acute) Nausea & vomiting (Acute) Acute cholecystitis (Acute) Internal bleeding hemorrhoids (Acute) Overweight (BMI 25.0-29.9) (Acute) Rectal bleeding (Acute) HPV in female (Acute) Well woman exam (Acute) Bilateral knee pain (Acute) Menstrual cramps (Acute) Encounter for removal of sutures (Acute) Facial skin lesion (Acute) Vitamin D deficiency (Acute) Endocervical polyp (Acute) ASCUS with positive high risk HPV cervical (Acute) URI (upper respiratory infection) (Acute) Cervical polyp (Acute) Nausea and vomiting in (Acute) Early stage of (Acute) Obesity (BMI 30-39.9) (Acute) Asthma (Acute) Migraine without aura (Acute) Annual physical exam (Acute) Bleeding after intercourse (Acute) Problematic vaginal discharge (Acute) Breast cancer screening (Acute) Screen for sexually transmitted diseases (Acute) Cervical cancer screening (Acute) Right knee pain (Acute) Vaginitis (Acute) Bright red blood per rectum (Acute) Encounter for annual routine gynecological examination (Acute) UTI (urinary tract infection) (Acute) Hx of migraines (Acute) Past Medical History Medical History Internal bleeding hemorrhoids Overweight (BMI 25.0-29.9) Vitamin D deficiency ASCUS with positive high risk HPV cervical Obesity (BMI 30-39.9) Asthma Migraine without aura Functional capacity: independent ambulation Patient : No Family History Family History Father Alive and well Mother Hypertension Maternal Grandmother Breast cancer Maternal Aunt Breast cancer Maternal Grandfather Stomach cancer Family/Other Ovarian cancer Family history of problems with anesthesia: No Surgical History Surgical History History of colposcopy History of Problems with Anesthesia: No Social History Social History Housing: House Alcohol intake: current Alcohol intake frequency: holidays/special occasions only Alcohol type: beer Patient Tobacco Use Status: Never used Tobacco Smoked in Last 30 Days: Yes e-Cigarette/Vaping Use: Never Used Use of substances other than those prescribed or required for medical reasons: No Advance Directives: No service: No Current occupational status: employed 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[employer] Sexual 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/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 Gender identity: Female Cognitive needs: No Hearing needs: No Vision needs: No Meds Allergies Allergy/AdvReac Type Severity Reaction Status Date / Time sulfamethoxazole Allergy Unknown Unknown Verified 12/31/24 21:33 Active Medications: Current Medications Acetaminophen (Acetaminophen 325 Mg Tablet) 650 mg PO Q6H PRN PRN Reason: Pain, Mild 1-3,fever,headache Lactated Ringer's (Lr) 1,000 mls @ 80 mls/hr IVCONT .[id number] [facility] Last Admin: 01/01/25 03:49 Dose: 80 mls/hr Lactated Ringer's (Lr) 1,000 mls @ 100 mls/hr IVCONT .Q10H [facility] Last Admin: 01/01/25 10:01 Dose: Not Given Piperacillin Sod/Tazobactam (Sod 3.375 gm/ Sodium Chloride) 50 mls @ 100 mls/hr IV Q6H [facility] Last Infusion: 01/01/25 10:40 Dose: Infused Melatonin (Melatonin 3 Mg Tablet) 6 mg PO BEDTIME PRN PRN Reason: Insomnia Morphine Sulfate (Morphine Sulfate 4 Mg/Ml Cartridge) 3 mg IVPUSH RQ4H PRN; Protocol PRN Reason: Pain, Severe (Pain Scale 7-10) Ondansetron HCl (Ondansetron Hcl 4 Mg/2 Ml Vial) 4 mg IVPUSH RQ6H PRN PRN Reason: Nausea and Vomiting Sodium Chloride (0.9 % Sodium Chloride Flush 3 Ml Syringe) 3 ml IVFLUSH QSHIFT [facility] Home Medications ?Medication ?Instructions ?Recorded ?Confirmed ?Last Taken ?Type tirzepatide (weight loss) 12.5 12.5 mg subcut TU@0900 01/01/25 01/01/25 12/27/24 History mg/0.5 mL subcutaneous pen injector Exam Height,Weight and Vital Signs: Height 5 ft 8 in Weight 75 kg Last Vital Signs Temp 97.8 F 01/01/25 12:08 Pulse 60 01/01/25 12:08 Resp 14 01/01/25 12:08 BP 96/50 L 01/01/25 12:23 Pulse Ox 95 01/01/25 12:08 O2 Del Method Room Air 01/01/25 12:08 Pertinent Lab Results Pertinent Lab Results: Laboratory Tests 12/31/24 01/01/25 01/01/25 23:25 02:25 12:21 WBC 15.8 H RBC 4.47 Hgb 13.9 Hct 37.4 MCV 83.7 MCH 31.1 MCHC 37.2 H RDW 12.3 Plt Count 315 MPV 9.7 Immature Gran % (Auto) 0.4 Neut % (Auto) 86.3 H Lymph % (Auto) 9.3 L [place] % (Auto) 3.8 Eos % (Auto) 0.1 Baso % (Auto) 0.1 Lymph # (Auto) 1.5 [place] # (Auto) 0.6 Eos # (Auto) 0.0 Baso # (Auto) 0.0 Abs Immat Gran (auto) 0.06 H Absolute Neuts (auto) 13.6 H Absolute Nucleated RBC 0.000 Nucleated RBC % (auto) 0.0 Sodium 143 Potassium 4.0 Chloride 109 H Carbon Dioxide 23 Anion Gap 15 BUN 10 Creatinine 0.81 Estim Creat Clear Calc 99.6 Estimated GFR > 60 Random Glucose 102 Lactic Acid 0.7 Calcium 9.5 D Total Bilirubin 2.1 H AST 178 H ALT 107 H Alkaline Phosphatase 99 Total Protein 7.4 Albumin 5.0 Lipase 23 Beta HCG, Quant < 2 Urine Color Yellow Urine Appearance Clear Urine pH 5.5 Ur Specific [place] 1.015 Urine Protein Negative Urine Glucose (UA) Negative Urine Ketones Trace Urine Blood Negative Urine Nitrite Negative Ur Leukocyte Esterase Trace H Urine RBC 0-2 Urine WBC 0-5 Ur Squamous Epith Cells 6-10 Urine Bacteria None Seen Hyaline Casts 0-2 Airway Mallampati Class: II TM Dist: >3cm Neck ROM: Full Heart: RRR Lungs: CTA Assessment and Plan Final Anesthetic Review Family History of Problems with Anesthesia: No History of Problems with Anesthesia: No NPO: Yes ASA Class: II and Emergency Patient Risk: Intermediate Procedure Risk: Intermediate Anesthetic Plan Anesthetic Plan: GA Disposition: Standard PACU
--- NOTE | 2025-01-01 14:02 | PC.NURSE ---
Nurse to Nurse given to Elisa TAVAREZ in OR.
--- NOTE | 2025-01-01 15:51 | W.PM.OPN ---
Operative Note Operative Note Date of Service: 01/01/25 Narrative: Preop diagnosis--acute cholecystitis Postop diagnosis--acute cholecystitis Procedure--laparoscopic cholecystectomy Surgeon--[facility] Anesthesia--general endotracheal tube anesthesia Patient is a 34-year-old female presenting with a 12 hour history of abdominal pain epigastric area nausea and vomiting and elevated LFTs and white count with CT scan showing findings consistent with the acute cholecystitis. Common bile duct normal in size. As a result patient comes in for laparoscopic cholecystectomy Findings--acute on chronic cholecystitis Procedure-- Patient was brought to the operative room under Anesthesia guidance was intubated. She had compression stockings placed before induction received preoperative antibiotics. Her abdomen was prepped and draped in standard surgical fashion. An infraumbilical incision was created after numbing up the area with a 0.25% Marcaine with epinephrine. Dissection was carried down to the anterior abdominal wall fascia which was grasped with Bishop's and transected. A 0 Vicryl pursestring suture placed and the Zelaya trocar r secured. Pneumoperitoneum was established to 15 mmHg pressure. Three 5 mm ports were then placed under direct visualization using local 1 in the epigastric and 2 in the right upper quadrant. The gallbladder was identified in the right upper quadrant with a adhesions. These adhesions were taken down bluntly. It was then grasped and retracted superiorly and laterally. Dissection was carried out in the triangle of Calot and the cystic duct cystic artery was identified. Two clips were placed down on the cystic duct and 1 up and transected in the same for the cystic artery. The hook cautery was then used to get the gallbladder off the liver bed and secured in a Endo-Catch bag removed from the infraumbilical port site. Pneumoperitoneum was then reestablished and then the bed of the liver cauterized. The ports were then removed and the pursestring suture approximated and more local placed in the umbilical area. Specimens sent was the gallbladder. Skin was closed with 4-0 Monocryl in a interrupted subcuticular fashion and Steri-Strips dry dressings placed. At the end of the case all sponge instrument needle counts were correct estimated blood loss was returned stable to the recovery room
[2025-01-01] MEDS: oxyCODONE HCl Immed Release 5 MG TABLET PO (16:00)
[2025-01-01] MEDS: Lactated Ringers 1,000 ML 100 ML IVCONT (16:34)
[2025-01-01] MEDS: oxyCODONE HCl Immed Release 5 MG TABLET 10 MG PO ×2 (18:07→22:41)
[2025-01-02] MEDS: Lactated Ringers 1,000 ML 100 ML IVCONT (03:06)
[2025-01-02 03:25] VITALS: BP 103/59; PULSE 76; RESP 18; O2SAT 97
[2025-01-02] MEDS: oxyCODONE HCl Immed Release 5 MG TABLET 10 MG PO (03:46)
--- NOTE | 2025-01-02 07:37 | P.PNGS_ITS ---
Subjective Subjective Date of Service: 01/02/25 <Lashawn Dunne PA-C - Last Filed: 01/02/25 08:23> 01/02/25 <Tad Paredes MD - Last Filed: 01/02/25 08:21> Interval history: Feels well, some mild umbilical and RUQ discomfort but comfortable with analgesics. Tolerating solid diet without nausea vomiting. OOB to bathroom. < Lashawn Dunne PA-C - Last Filed: 01/02/25 08:23> Physical Exam 2 Vital Signs: Vital Signs: Last Vital Signs Temp 97.8 F 01/01/25 23:46 Pulse 76 01/02/25 03:25 Resp 18 01/02/25 03:25 BP 103/59 L 01/02/25 03:25 Pulse Ox 97 01/02/25 03:25 O2 Del Method Room Air 01/02/25 03:25 BMI result Body Mass Index 24.8 <Lashawn Dunne PA-C - Last Filed: 01/02/25 08:23> Const: General: comfortable, no acute distress and alert <Lashawn Dunne PA-C - Last Filed: 01/02/25 08:23> Orientation/consciousness: patient oriented x3 <SOFI Garcia Last Filed: 01/02/25 08:23> Resp: Effort & Inspection: normal respiratory effort <SOFI Garcia Last Filed: 01/02/25 08:23> GI: Other: soft, mild incisional tenderness dressings intact <Lashawn Dunne PA-C - Last Filed: 01/02/25 08:23> Palpation (GI): no guarding <SOFI Garcia Last Filed: 01/02/25 08:23> Percussion: Yes normal to percussion <SOFI Garcia Last Filed: 01/02/25 08:23> Skin: General skin exam: no rashes or lesions noted and no jaundice < SOFI Garcia Last Filed: 01/02/25 08:23> Neuro: General: patient oriented x3 <SOFI Garcia Last Filed: 01/02/25 08:23> Objective Data Active Medications Acetaminophen (Acetaminophen 325 Mg Tablet) 650 mg PO Q6H PRN PRN Reason: Pain, Mild 1-3,fever,headache Acetaminophen/Butalbital/Caffeine (Butalb/Acetamin/Caff 50/325/40 Tablet) 1 tab PO TID PRN PRN Reason: Headache Albuterol Sulfate (Albuterol Sulfate 90 Mcg 8 Gm Inhaler) 2 puff INHALE Q6H PRN PRN Reason: shortness of breath or wheezing Docusate Sodium (Docusate Sodium 100 Mg Capsule) 100 mg PO BID [facility] Last Admin: 01/01/25 20:26 Dose: 100 mg Documented By: DONALD Lactated Ringer's (Lr) 1,000 mls @ 100 mls/hr IVCONT .Q10H [facility] Last Admin: 01/02/25 03:06 Dose: 100 mls/hr Documented By: DONALD Piperacillin Sod/Tazobactam (Sod 3.375 gm/ Sodium Chloride) 50 mls @ 100 mls/hr IV Q6H [facility] Last Infusion: 01/02/25 03:32 Dose: Infused Documented By: DONALD Melatonin (Melatonin 3 Mg Tablet) 6 mg PO BEDTIME PRN PRN Reason: Insomnia Morphine Sulfate (Morphine Sulfate 4 Mg/Ml Cartridge) 3 mg IVPUSH RQ4H PRN; Protocol PRN Reason: Pain, Severe (Pain Scale 7-10) Last Admin: 01/02/25 00:57 Dose: 3 mg Documented By: DONALD Naloxone HCl (Naloxone Hcl 0.4 Mg/Ml Vial) 0.04 mg IVPUSH Q5M PRN PRN Reason: Excessive sedation or RR < 8 Ondansetron HCl (Ondansetron Hcl 4 Mg/2 Ml Vial) 4 mg IVPUSH RQ6H PRN PRN Reason: Nausea and Vomiting Oxycodone HCl (Oxycodone Hcl Immed Release 5 Mg Tablet) 5 mg PO Q4H PRN PRN Reason: Pain, Mild (Pain Scale 1-3) Oxycodone HCl (Oxycodone Hcl Immed Release 5 Mg Tablet) 10 mg PO Q4H PRN PRN Reason: Pain, Moderate(Pain Scale 4-6) Last Admin: 01/02/25 03:46 Dose: 10 mg Documented By: DONALD Sodium Chloride (0.9 % Sodium Chloride Flush 3 Ml Syringe) 3 ml IVFLUSH [facility] Last Admin: 01/01/25 23:51 Dose: Not Given Documented By: DONALD Non-Admin Reason: IV Running <Lashawn Dunne PA-C - Last Filed: 01/02/25 08:23> Labs CBC & Chem 7: 01/02/25 07:06 12/31/24 23:25 <Lashawn Dunne PA-C - Last Filed: 01/02/25 08:23> Labs: Laboratory Results - last 24 hr 01/01/25 12:21 Urine Color Yellow Urine Appearance Clear Urine pH 5.5 Ur Specific [place] 1.015 Urine Protein Negative Urine Glucose (UA) Negative Urine Ketones Trace Urine Blood Negative Urine Nitrite Negative Ur Leukocyte Esterase Trace H Urine RBC 0-2 Urine WBC 0-5 Ur Squamous Epith Cells 6-10 Urine Bacteria None Seen Hyaline Casts 0-2 <Lashawn Dunne PA-C - Last Filed: 01/02/25 08:23> Microbiology Microbiology Results: Microbiology 01/01/25 02:25 Blood Culture - Preliminary Blood - Venous No growth after 24 hours. 01/01/25 02:25 Blood Culture - Preliminary Blood - Venous No growth after 24 hours. <Lashawn Dunne PA-C - Last Filed: 01/02/25 08:23> Procedures Date of Service Date of Service: 01/02/25 <Lashawn Dunne PA-C - Last Filed: 01/02/25 08:23> 01/02/25 <Tad Paredes MD - Last Filed: 01/02/25 08:21> Progress Note: A&P Assessment and plan (1) S/P laparoscopic cholecystectomy: Status: Acute <Lashawn Dunne PA-C - Last Filed: 01/02/25 08:23> Assessment and Plan: Feels well Abdomen is soft and benign Looks well overall LFTs pending She feels ready to be discharged Okay to [place] home once LFTs are trending down Seen and examined independently Follow up instructions and discharge instructions reinforced with the patient <Tad Paredes MD - Last Filed: 01/02/25 08:21> Assessment and Plan: POD #1 s/p lap douglas. Doing well post op, VSS, abd exam benign with appropriate post op tenderness. Dressings intact. Awaiting repeat LFTs this AM. If improved, stable for dc to home with f/u in office in 1 week. Patient comfortable with plan. <Lashawn Dunne PA-C - Last Filed: 01/02/25 08:23> Time Spent With Patient Time: Total time managing care of this patient today ____ minutes. <Lashawn Dunne PA-C - Last Filed: 01/02/25 08:23> Quality Stroke Does the patient have a stroke diagnosis?: No <Lashawn Dunne PA-C - Last Filed: 01/02/25 08:23> VTE Prior VTE?: No <Lashawn Dunne PA-C - Last Filed: 01/02/25 08:23> VTE Risk Level:: Surgical - low <Lashawn Dunne PA-C - Last Filed: 01/02/25 08:23> VTE Device Contraindication: N/A - Device Ordered <Lashawn Dunne PA-C - Last Filed: 01/02/25 08:23> VTE Drug Contraindication: N/A - Med Ordered <Lashawn Dunne PA-C - Last Filed: 01/02/25 08:23>
[2025-01-02 07:46] VITALS: BP 102/54; PULSE 66; RESP 16; TEMP 36.8; O2SAT 97
[2025-01-02 08:07] LABS: MANUAL DIFF FLAG NO
[2025-01-02 08:12] LABS: Hematocrit 30.0 % (37.0-47.0); Hemoglobin 10.8 g/dl (12.0-16.0); Imm Gran Abs Auto 0.05 X10*3/uL (0.00-0.03); Imm Gran Pct Auto 0.4 % (0.0-0.4); Lymphocytes Absolute Auto 1.7 X10*3/uL (1.2-4.9); Mean Corpuscular HGB Conc 36.0 g/dl (31.0-35.0); Mean Corpuscular Hemoglobin 30.6 pg (27.0-33.0); Mean Corpuscular Volume 85.0 fL (80.0-98.0); NRBC Abs Auto 0.000 X10*3/uL (0.0-0.012); NRBC Pct Auto 0.0 /100WBC (0.0-0.2); Platelet Count 252 X10*3/uL (160-400); Red Blood Count 3.53 X10*6/uL (4.20-5.50); White Blood Count 11.6 X10*3/uL (4.8-10.8)
[2025-01-02 08:46] LABS: Alanine Aminotransferase 413 U/L (0-31); Albumin Level 3.6 g/dL (3.5-5.0); Alkaline Phosphatase 81 U/L (39-117); Anion Gap 12 (12-20); Aspartate Amino Transferase 245 U/L (5-31); Blood Urea Nitrogen 8 mg/dL (9-16); Carbon Dioxide 22 mmol/L (22-29); Chloride 110 mmol/L (96-108); Creatinine Clr Calc Pharmacy 103.4; Estimated Glomerular Filt Rate > 60; Potassium 3.5 mmol/L (3.3-5.1); Sodium 140 mmol/L (135-145); Total Protein 5.5 g/dL (6.5-8.0)
[2025-01-02] MEDS: 0.9 % Sodium Chloride Flush 3 ML SYRINGE IVFLUSH (09:17)
[2025-01-02 09:18] VITALS: BP 109/57; PULSE 87; O2SAT 98
[2025-01-02 09:27] LABS: Calcium 8.5 mg/dL (8.4-10.2)
[2025-01-02] MEDS: oxyCODONE HCl Immed Release 5 MG TABLET PO ×2 (09:47→13:13)
--- NOTE | 2025-01-02 09:51 | MHC.CM.PN ---
pt lives with spouse will have own transport home is independent dc plan home no services
[2025-01-02 11:58] VITALS: BP 102/46; PULSE 72; RESP 16; TEMP 36.7; O2SAT 98
--- NOTE | 2025-01-02 12:58 | PM.DS ---
DS: Providers Provider Date of Service: 01/02/25 Date of admission: 01/01/25 08:30 Date of discharge: 01/02/25 Primary care physician: Charlie Naylor MD Attending physician on admission: Meme Poon Attending physician on discharge: Tad Paredes DS: Diagnosis Discharge Diagnosis (1) S/P laparoscopic cholecystectomy: Status: Acute DS: Summary Hospital Course Hospital Course: HPI AT ADMISSION: Cynthia Means is a 34 year old female who came to the ER with a 12 hr history of epigastric abdominal pain and nausea and vomiting and elevated wbc and lfts and tender in the ruq area. CT scan shows stones and findings consistent with cholecystitis. She has never had pain like this before and she has a sister who had her GB out. Feels better today but refining still operator in RUQ area. No chest pain, resp issues, urinary symptoms. HOSPITAL COURSE: The patient was admitted to the surgical service for further treatment of the acute cholecystitis. She elected to proceed with laparoscopic cholecystectomy, possible open. She was added onto the OR schedule for that day. On 01/01/25, a laparoscopic cholecystectomy was performed by Dr. Poon without complication. The patient tolerated the procedure well. She had an uncomplicated recovery course. On POD #1, she felt well and was tolerating a solid diet without nausea or vomiting, had good pain control and was ambulating without difficulty. She was hemodynamically stable. Her abdomen was benign with appropriate post op tenderness and clean dressings. She had repeat LFTs and her bilirubin downtrended with a bump in her transaminases. She was clinically appearing well. She felt ready for discharge. She was discharged to home on 01/02/25 in stable condition. She is to follow up in the office in 1-2 weeks. She is to have repeat LFTs in 1 week. Status at Discharge Functional status at discharge: independent ambulation Time Attestation Discharge Coordination Time (in mins): 25 Quality: Safe Use of Opioids Does Pt have an Active Cancer Diagnosis on the Problem List?: No Quality: Stroke Does the patient have a stroke diagnosis?: No Physical Exam Vital Signs: Vital Signs: Last Vital Signs Temp 98.1 F 01/02/25 11:58 Pulse 72 01/02/25 11:58 Resp 16 01/02/25 11:58 BP 102/46 L 01/02/25 11:58 Pulse Ox 98 01/02/25 11:58 O2 Del Method Room Air 01/02/25 11:58 BMI result Body Mass Index 24.8 Const: General: comfortable, no acute distress and alert Orientation/consciousness: patient oriented x3 Resp: Effort & Inspection: normal respiratory effort GI: Inspection: No distended and Yes incision (dressings clean and intact ) Palpation (GI): Soft to palpation, Tenderness to palpation present (GI) (mild incisional) and no guarding Skin: General skin exam: no rashes or lesions noted and no jaundice Neuro: General: patient oriented x3 and moves all extremities DS: Data Data Completed and Pending Pending studies at discharge: Pending at discharge 01/01/25 15:24 Surgical [PTH] Routine Labs on day of discharge: Laboratory Results - last 24 hr 01/02/25 07:06 WBC 11.6 H RBC 3.53 L D Hgb 10.8 L D Hct 30.0 L MCV 85.0 MCH 30.6 MCHC 36.0 H RDW 12.5 Plt Count 252 MPV 10.7 Immature Gran % (Auto) 0.4 Neut % (Auto) 78.4 H Lymph % (Auto) 14.5 L [place] % (Auto) 6.4 Eos % (Auto) 0.1 Baso % (Auto) 0.2 Lymph # (Auto) 1.7 [place] # (Auto) 0.8 Eos # (Auto) 0.0 Baso # (Auto) 0.0 Abs Immat Gran (auto) 0.05 H Absolute Neuts (auto) 9.1 H Absolute Nucleated RBC 0.000 Nucleated RBC % (auto) 0.0 Sodium 140 Potassium 3.5 Chloride 110 H Carbon Dioxide 22 Anion Gap 12 BUN 8 L Creatinine 0.78 Estim Creat Clear Calc 103.4 Estimated GFR > 60 Random Glucose 78 Calcium 8.5 D Total Bilirubin 1.5 H AST 245 H ALT 413 H Alkaline Phosphatase 81 Total Protein 5.5 L Albumin 3.6 Preliminary micro results at discharge 01/01/25 02:25 Blood Culture - Preliminary Blood - Venous No growth after 24 hours. 01/01/25 02:25 Blood Culture - Preliminary Blood - Venous No growth after 24 hours. Discharge Plan Discharge Anticipated Discharge Date/Time: 01/02/25 09:00 Patient Disposition: Home, Self-Care Discharge Diagnosis: acute cholecystitis s/p laparoscopic cholecystectomy Referrals: Charlie Naylor MD [Primary Care Provider, Internal Medicine] - 1 Week Tad Paredes MD [Physician, General Surgery] - 1 Week Discharge Medications: New docusate sodium [Colace] 100 mg capsule 100 mg PO BID PRN (Reason: constipation) Qty: 30 0RF oxycodone 5 mg tablet 5 mg PO Q4H PRN (Reason: pain (scale score 7-10)) Qty: 26 0RF Rx Instructions: Partial Fill upon patient request. Continued [id number] [Fioricet] 50-300-40 mg capsule 1 cap PO TID PRN (Reason: headache) Qty: 30 3RF ibuprofen 800 mg tablet 800 mg PO Q8H PRN (Reason: pain) Qty: 90 1RF Rx Instructions: Take with food and only as needed polyethylene glycol 3350 [Miralax] 17 gram/dose powder 17 g PO DAILY Qty: 238 0RF tirzepatide (weight loss) 12.5 mg/0.5 mL pen injector 12.5 mg subcut TU@0900 albuterol sulfate 90 mcg/actuation HFA aerosol inhaler 2 puff inhalation Q6H PRN (Reason: shortness of breath or wheezing) Qty: 6.7 0RF Discharge Orders: Discharge Order (Routine); Ordered 01/02/25 Ordered By: Lashawn Dunne Diet: Advance to usual diet Activity on Discharge: No heavy lifting Stand Alone Forms: Patient Portal Discharge page Print Language: Upper Sorbian Other Ambulatory Orders: Liver Panel (Routine) Timeframe: 1 Week Facility: [facility] - Location: Laboratory Ordered By: Lashawn Dunne Activity Restrictions/Additional Instructions: If the incision area is tender, you may apply an ice pack for short intervals (No more than 20 minutes on, followed by at least 20 minutes off). Do not apply heat. Do not use creams, lotions, or topical antibiotics. Ok to shower. Remove clear dressings 3 days following your procedure. You have steri strips (small white strips) covering your incision- these will fall off ~1 week. No heavy lifting (>10lbs) or strenuous activity! Take Tylenol Extra-strength 1-2 tabs every 6 hours for the first day, then as needed. Oxycodone every 6-8 hours as needed for pain. Colace 100 mg every day as needed for constipation. Follow up in office with Dr. Paredes in 1 week. ([phone]) Call Your Doctor If: -Your temperature exceeds 101.5? F -You experience excessive pain or swelling -You have an unexpected reaction to medication -You have excessive bleeding -You experience continued vomiting/nausea -Your incision begins to separate -Your incision shows signs of infection such as increased redness, swelling, excessive pain, drainage (light blood or clear fluid is normal) or heat Care Plan Goals: Return to baseline health and resume normal activities following recovery period. Health Concerns: acute cholecystitis elevated liver enzymes Plan of Treatment: s/p laparoscopic cholecystectomy f/u in office in 1 week no heavy lifting Assessment: Doing well post op.
--- NOTE | 2025-01-02 13:03 | PM.EVENT ---
Event Note Date of Service: 01/02/25 Event Note: Seen on afternoon Says she feels better Sore on incisions but with good pain control She says that she is ready to be discharged Repeat LFTs show bilirubin has trended down significantly but AST ALT are up This is likely due to liver trauma perioperatively Looks well overall Clinically doing well We will discharge home with follow up LFTs as an outpatient Instructions reinforced with the patient Time Spent With Patient Time: Total time managing care of this patient today ____ minutes.
[2025-01-02 13:42] VITALS: BP 99/58; PULSE 75; RESP 14; TEMP 36.6; O2SAT 97
--- NOTE | 2025-01-02 14:06 | MHC.CM.PN ---
pt dcd home self care
[2025-01-02 15:13] VITALS: BP 96/53; PULSE 74; RESP 18; TEMP 36.6; O2SAT 92
== END 2025-01-02 15:32 | disposition home or self-care (01) | DRG 263 ==
LOC: HO.ED 01-01 06:39 → HO.EDOVER 01-01 08:35 → HO.S3 01-01 15:59
PROVIDERS: Emergency Medicine; Admitting Provider Surgery; Emergency Provider Emergency Medicine; PCP Internal Medicine; Visit Provider Surgery
PROC: 0FT44ZZ Resection of Gallbladder, Percutaneous Endoscopic Approach (ICD-10-PCS; CPT 47562; principal; 2025-01-01 14:00)
DX: K81.0 Acute cholecystitis (principal); K81.1 Chronic cholecystitis; Z79.899 Other long term (current) drug therapy
CPT/HCPCS: 36415; 76705; 80053; 81001; 83605; 83690; 84702; 85025; 87040; 88304; 99285; J0131; J1100; J1885; J2003; J2250; J2270; J2405; J2543; J2704; J3010; J7120

== ENCOUNTER → 2025-01-01 00:22 | Outpatient (BNV) | payer OTHER, SELFPAY | PROVIDERS: Emergency Provider Emergency Medicine; PCP Internal Medicine; Visit Provider Radiology Diagnostic Radiology | DX: K80.20 Calculus of gallbladder without cholecystitis without obstruction (principal) | CPT/HCPCS: 76705 ==

== ENCOUNTER → 2025-01-01 08:30 | Outpatient (BNV) | payer OTHER, SELFPAY | PROVIDERS: Admitting Provider Surgery; Emergency Provider Emergency Medicine; PCP Internal Medicine; Visit Provider Surgery | DX: Z90.49 Acquired absence of other specified parts of digestive tract (principal) | CPT/HCPCS: 99024; 99499 ==

== ENCOUNTER 2025-01-09 12:16 | Outpatient (REF) | payer OTHER, SELFPAY ==
--- OUTSIDE RECORDS SUMMARY | 2025-01-09 13:31 | XMS_ITS | Clinical Summary ---
Author Organization [facility] Address [address] [place] [address] Care Team Providers Care Environmental Resource Specialist Name Role Phone Unavailable Primary Care [...] of 3 - 19+ 3-dose series) 11/14/2010 HPV Vaccines (1 - 3-dose SCD M series) 11/14/2018 COVID-19 Vaccine ( - 2023-2 5 season) 2024 Pneumococcal Vaccine: Pediat naseem (0-5 Years) and At-Risk Patients (6 to 49 Years) Aged Out No longer eligible b ased on patient's age to complete this topic
--- OUTSIDE RECORDS SUMMARY | 2025-01-09 13:31 | XMS_ITS | Encounter Summary ---
Author Organization [facility] Address [address] [place] [address] Phone Care Team Providers Care Diet Attendant Name Role Phone Grazyna Rios MD Primary Care Provider [phone] Encounter Details Date Type Department Care Team (Late st Contact Info) Description 06/24/2012 Documentation [facility] [place] [address], [place] [id number] Family Medicine, Physician [address] [place] [address] Social History Tobacco Use Types Packs/Day Years [...] on filedocumented in this encounter Care Teams Diet Attendant Relationship Specialty Start Date End Date Grazyna Rios MD [address] [place] [address] [place] [id number] PCP - General 12/26/16 08/27/22 documented as of this encounter
[2025-01-09 13:45] LABS: Alanine Aminotransferase 111 U/L (0-31); Albumin Level 4.7 g/dL (3.5-5.0); Alkaline Phosphatase 81 U/L (39-117); Aspartate Amino Transferase 29 U/L (5-31); Total Protein 7.1 g/dL (6.5-8.0)
== END 2025-01-09 12:17 | disposition home or self-care (01) ==
LOC: HO.LAB 12:16
PROVIDERS: PCP Internal Medicine; Visit Provider Physician Assistant Surgical
DX: Z90.49 Acquired absence of other specified parts of digestive tract (principal)
CPT/HCPCS: 36415; 80076

== ENCOUNTER 2025-01-17 10:30 | Outpatient (AMB) | payer OTHER, SELFPAY ==
--- NOTE | 2025-01-17 10:37 | A.OFFVIS_ITS ---
Vital Signs 01/17/25 10:43 Weight 174 lb BP 111/59 L Blood Pressure Location Rt brachial Position Sitting Pulse 104 H Intake Visit Reasons: s/p lap douglas Intake Note: Patient here s/p laparoscopic cholecystectomy on 01-01-2025. Patient c/o: itch along scarline. Denies oozing, pain. No longer taking rx pain meds. Dye Colorist Formulator Required: No Accompanied by: Self / Same As Patient Allergies sulfamethoxazole Allergy (Unknown, Verified 01/17/25 10:42) Unknown HPI HPI s/p lap douglas: Details: Overall doing well. Not experiencing any pain. Only took prescribed oxycodone for 1 or 2 days postoperatively. Reports appetite is normal, bowel function has improved since the surgery now more regular. She does report a small amount of discharge from the umbilical incision but this was only 1 day and has not returned. Denies pain at the incision sites. Has left the Steri-Strips in place. Continuing MiraLax as needed from another provider. She has been avoiding heavy lifting, she does have a 32-wyoud-rmf baby who was about 19 lb who she would like to be able to hold. Currently not working does not need activity restrictions for work. [facility] Medical History (Updated 01/10/25 @ 00:02 by Jaquan Solis) Internal bleeding hemorrhoids Overweight (BMI 25.0-29.9) Vitamin D deficiency ASCUS with positive high risk HPV cervical Obesity (BMI 30-39.9) Asthma Migraine without aura Surgical History (Updated 01/17/25 @ 10:37 by WILBUR Gay) S/P laparoscopic cholecystectomy (01/01/25) History of colposcopy Family History Father Alive and well Mother Hypertension Maternal Grandmother Breast cancer Maternal Aunt Breast cancer Maternal Grandfather Stomach cancer Family/Other Ovarian cancer Social History Household Members: Unknown / Unable to assess Housing: Unknown / Unable to assess Do you presently have visiting nurse or other home services: No Alcohol intake: current Alcohol intake frequency: holidays/special occasions only Alcohol type: beer Patient Tobacco Use Status: Never used Tobacco e-Cigarette/Vaping Use: Never Used service: No Current occupational status: employed 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[employer] Sexual 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/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 Gender identity: Female Cognitive needs: No Hearing needs: No Vision needs: No Female Reproductive History Menstrual Age of Menarche: 14 Review of Systems Const All systems reviewed & are unremarkable except as noted in HPI and below Physical Exam Vital Signs: Last Vital Signs Pulse 104 H 01/17/25 10:43 BP 111/59 L 01/17/25 10:43 Const General: comfortable and no acute distress Orientation/consciousness: patient oriented x3 Resp Effort & Inspection: normal respiratory effort and able to speak in complete sentences GI Other: Incision sites healing well. Steri-Strips removed no discharge. Appropriate postsurgical induration at the larger trocar sites. No discharge, no surrounding erythema. Nontender Inspection: No distended Palpation (GI): Soft to palpation, nontender and no guarding Neuro General: patient oriented x3 Assessment & Plan Assessment & Plan (1) S/P laparoscopic cholecystectomy: Onset Date: 01/01/25 Comment: laparoscopic cholecystectomy Dr. Poon Code(s): Z90.49 - Acquired absence of other specified parts of digestive tract Category: Medical Plan 34-year-old female s/p laparoscopic cholecystectomy on 01/01/2025 returning to the office for routine follow-up. Overall patient doing very well. Not experiencing pain. Appetite and bowel function are at baseline. Bowel function actually improved since the procedure. On exam the abdomen is soft and benign, incision sites appear to be healing well no concern for infection at this time. There was expected postsurgical induration, likely from scarring of the trocar sites. Recommended that this will go away with time but she can do some warm compress and gentle massage as needed. I removed the Steri-Strips without complication. She is okay to shower using soap and water to clean the areas, but no submerging of the incision sites at this point. Also recommended no lotions or creams for now. In regards to her activity restrictions we will keep true activity restrictions in place for another week. She is okay to care for her child during this time. I recommended that she slowly increase activity beginning next week towards her baseline. We will see her in 2 weeks for one- month postop visit. She can return sooner with any concerns or questions. Coding Level of Care Code Global (22537) Diagnoses S/P laparoscopic cholecystectomy Z90.49
[2025-01-17 10:43] VITALS: BP 111/59; PULSE 104
--- OUTSIDE RECORDS SUMMARY | 2025-01-17 12:04 | XMS_ITS | Encounter Summary ---
Author Organization [facility] Address [address] [place] [address] Phone Care Team Providers Care Hand Tier Name Role Phone Grazyna Rios MD Primary Care Provider [phone] Encounter Details Date Type Department Care Team (Late st Contact Info) Description 01/01/2017 Conversion Encounter [facility] [address] [place] [address] Social History Tobacco Use Types Packs/Day Years [...] on filedocumented in this encounter Care Teams Hand Tier Relationship Specialty Start Date End Date Grazyna Rios MD [address] [place] [address] PCP - General 12/26/16 08/27/22 documented as of this encounter
--- OUTSIDE RECORDS SUMMARY | 2025-01-17 12:04 | XMS_ITS | Encounter Summary ---
Author Organization [facility] Address [address] [place] [address] Phone Care Team Providers Care Rod Piler Name Role Phone Grazyna Rios MD Primary Care Provider [phone] Encounter Details Date Type Department Care Team (Late st Contact Info) Description 05/27/2013 Documentation [facility] [place] [address] [place], [place] [id number] Family Medicine, Physician [address] [place] [address] Social History Tobacco Use Types Packs/Day Years [...] on filedocumented in this encounter Care Teams Rod Piler Relationship Specialty Start Date End Date Grazyna Rios MD [address] [place] [address] [place] [address] PCP - General 12/26/16 08/27/22 documented as of this encounter
--- OUTSIDE RECORDS SUMMARY | 2025-01-17 12:04 | XMS_ITS | Encounter Summary ---
Author Organization [facility] Address [address] [place] [address] Phone Care Team Providers Care Tower Director Name Role Phone Grazyna Rios MD Primary Care Provider [phone] Encounter Details Date Type Department Care Team (Late st Contact Info) Description 09/27/2012 [place] [facility] [place] [address] [place], [place] [phone] Family Medicine, Physician [address] [place] [address] Social History Tobacco Use Types Packs/Day Years [...] on filedocumented in this encounter Care Teams Tower Director Relationship Specialty Start Date End Date Grazyna Rios MD [address] [place] [address] [place] [address] PCP - General 12/26/16 08/27/22 documented as of this encounter
--- OUTSIDE RECORDS SUMMARY | 2025-01-17 12:04 | XMS_ITS | Encounter Summary ---
Author Organization [facility] Address [address] [place] [address] Phone Care Team Providers Care Superintendent Concrete Mixing Plant Name Role Phone Grazyna Rios MD Primary Care Provider [phone] Encounter Details Date Type Department Care Team (Late st Contact Info) Description 06/24/2012 Documentation [facility] [place] [address] [place], [place] [phone] Family Medicine, Physician [address] [place] [address] Social History Tobacco Use Types Packs/Day Years [...] on filedocumented in this encounter Care Teams Superintendent Concrete Mixing Plant Relationship Specialty Start Date End Date Grazyna Rios MD [address] [place] [address] [place] [address] PCP - General 12/26/16 08/27/22 documented as of this encounter
--- OUTSIDE RECORDS SUMMARY | 2025-01-17 12:04 | XMS_ITS | Clinical Summary ---
Author Organization [facility] Address [address] [place] [address] Phone Care Team Providers Care Spooling Operator Name Role Phone Unavailable Primary Care [...] AM EST Pulse - - Temperature 37.2 C (99 F) 06/18/2012 12:00 AM EST Respiratory Rate - [...] 01/15/1997, Additional history exists Influenza Vaccines (#1) 2024 04/24/20, 01/30/2010, 03/03/2008 COVID-19 Vaccine ( season) 2025 Hepatitis B Vaccines Completed 07/15/1992, 01/16/1992, 1991 [...] complete this topic Procedures * Due to [place] state law, this organization might not be sharing sensitive test results. Procedure Name Priority Date/Time Associated Diagnosis Comments CHLAMYDIA AND GONORRHEA, AMPLIFIED Routine 12/16/2011 1:11 PM EDT from Last 3 Months or Most Recently Relevant to Health Maintenance Results * Due to [facility] law, this organization might not be sharing sensitive test results. * Chlamydia and Gonorrhoea, Amplified (12/16/2011 1:11 PM EDT) URINE GC AMP PROBE NEGATIVE [facility] Comment: NO NEISSERIA GONORRHOEAE RNA DETECTED IN THIS PATIENT'S SAMPLE. (REFERENCE RANGE/NORMAL VALUE: NOT DETECTED) NOTE: THIS TEST USES ARCH SUPPORT TECHNICIAN MEDIATED AMPLIFICATION METHOD TO DETECT rRNA FROM [...] OTHER AGENTS. URINE CHLAMYDIA AMP PROBE NEGATIVE [facility] Comment: NO CHLAMYDIA TRACHOMATIS RNA DETECTED IN THIS PATIENT'S SAMPLE. (REFERENCE RANGE/NORMAL VALUE: NOT DETECTED) 12/16/2011 1:11 PM EDT [facility] - 12/16/2011 1:11 PM EDT URINE CHLAMYDIA GC AMP PROBE us Grazyna Rios MD LAB MICROBIOLOGY - GENERAL ORDER JOHN Final Result [facility] [address] [place] [address], [place] from Last 3 Months or Most Recently Relevant to Health Maintenance
--- OUTSIDE RECORDS SUMMARY | 2025-01-17 12:04 | XMS_ITS | Clinical Summary ---
Author Organization [facility] Address [address] [place] [address] Care Team Providers Care Functional Director Name Role Phone Unavailable Primary Care Provider [...]
== END 2025-01-17 10:50 | disposition home or self-care (01) ==
LOC: HO.HGS 10:32
PROVIDERS: PCP Internal Medicine
DX: Z90.49 Acquired absence of other specified parts of digestive tract (principal)
CPT/HCPCS: 99024

== ENCOUNTER → 2025-01-17 10:30 | Outpatient (BNVA) | payer OTHER, SELFPAY | PROVIDERS: PCP Internal Medicine | DX: Z48.815 Encounter for surgical aftercare following surgery on the digestive system (principal); Z90.49 Acquired absence of other specified parts of digestive tract | CPT/HCPCS: 99212 ==

== ENCOUNTER 2025-02-01 09:54 | Outpatient (AMB) | payer OTHER, SELFPAY ==
--- NOTE | 2025-02-01 10:01 | A.OFFVIS_ITS ---
Vital Signs 02/01/25 10:07 Height 5 ft 8 in Weight 83.007 kg BMI 27.8 BP 110/54 L Blood Pressure Location Lt brachial Position Sitting Pulse 76 Intake Visit Reasons: s/p lap douglas Intake Note: Patient is seen in office for 2 weeks follow up visit, post laparoscopic cholecystectomy. Pt c/o: denies any concerns Steam Roller Operator Required: No Accompanied by: Self / Same As Patient Allergies sulfamethoxazole Allergy (Unknown, Verified 02/01/25 10:05) Unknown HPI HPI s/p lap douglas: Details: Doing very well, no complaints. Denies pain. Appetite and bowel function at baseline. Reports scab fell off incisions shortly after our last appointment denies discharge or drainage from incision sites. Denies fevers or chills. Has questions about returning to exercise, use of abdominal support binder with exercise, when she can put in her belly ring [facility] Medical History Internal bleeding hemorrhoids Overweight (BMI 25.0-29.9) Vitamin D deficiency ASCUS with positive high risk HPV cervical Obesity (BMI 30-39.9) Asthma Migraine without aura Surgical History S/P laparoscopic cholecystectomy (01/01/25) History of colposcopy Family History Father Alive and well Mother Hypertension Maternal Grandmother Breast cancer Maternal Aunt Breast cancer Maternal Grandfather Stomach cancer Family/Other Ovarian cancer Social History Household Members: Unknown / Unable to assess Housing: Unknown / Unable to assess Do you presently have visiting nurse or other home services: No Alcohol intake: current Alcohol intake frequency: holidays/special occasions only Alcohol type: beer Patient Tobacco Use Status: Never used Tobacco e-Cigarette/Vaping Use: Never Used service: No Current occupational status: employed 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[employer] Sexual 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/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 Gender identity: Female Cognitive needs: No Hearing needs: No Vision needs: No Female Reproductive History Menstrual Age of Menarche: 14 Review of Systems Const All systems reviewed & are unremarkable except as noted in HPI and below Physical Exam Vital Signs: Last Vital Signs Pulse 76 02/01/25 10:07 BP 110/54 L 02/01/25 10:07 BMI result Body Mass Index 27.8 Const General: comfortable and no acute distress Orientation/consciousness: patient oriented x3 Resp Effort & Inspection: normal respiratory effort and able to speak in complete sentences GI Other: Incision sites well healed, no surrounding erythema, no discharge noted incision sites intact Inspection: No distended Palpation (GI): Soft to palpation and nontender Neuro General: patient oriented x3 Assessment & Plan Assessment & Plan (1) S/P laparoscopic cholecystectomy: Onset Date: 01/01/25 Comment: laparoscopic cholecystectomy Dr. Poon Code(s): Z90.49 - Acquired absence of other specified parts of digestive tract Category: Surgical Plan 34-year-old female s/p laparoscopic cholecystectomy on 01/01 returning to the office for routine one-month follow up. Overall patient doing very well, no pain. Appetite bowel function at baseline. On exam the abdomen is soft and benign, incision sites are well healed no concern for infection at this time. She is okay to resume activity, I recommended that she resume at half of her baseline and slowly return over the course of a week or 2. She is okay to use his abdominal binder. I instructed her that she can put her belly button ring back in in one-week, but if there was any pain or redness after that she should reach out for evaluation. She is no longer requiring routine follow up. Can follow up as needed with any concerns in the future Coding Level of Care Code Global (53113) Diagnoses S/P laparoscopic cholecystectomy Z90.49
[2025-02-01 10:07] VITALS: BP 110/54; PULSE 76; BMI 27.8
--- OUTSIDE RECORDS SUMMARY | 2025-02-01 11:48 | XMS_ITS | Encounter Summary ---
Author Organization [facility] Address [address] [place] [address] Phone Care Team Providers Care Oracle Hrms Consultant Name Role Phone Grazyna Rios MD Primary Care Provider [phone] Encounter Details Date Type Department Care Team (Late st Contact Info) Description 01/01/2017 Conversion Encounter [facility] [place] [address] [place] [address] Social History Tobacco Use Types Packs/Day Years [...] on filedocumented in this encounter Care Teams Oracle Hrms Consultant Relationship Specialty Start Date End Date Grazyna Rios MD [address] [place] [address] PCP - General 12/26/16 08/27/22 documented as of this encounter
--- OUTSIDE RECORDS SUMMARY | 2025-02-01 11:48 | XMS_ITS | Clinical Summary ---
Author Organization [facility] Address [address] [place] [address] Care Team Providers Care Ophthalmologist Name Role Phone Unavailable Primary Care Provider [...] COVID-19 Vaccine ( - 2023-2 5 season) 2025 Pneumococcal Vaccine: Pediat naseem (0-5 Years) and At-Risk Patients (6 to 49 Years) Aged Out No longer eligible b ased on patient's age to complete this topic
--- OUTSIDE RECORDS SUMMARY | 2025-02-01 11:48 | XMS_ITS | Encounter Summary ---
Author Organization [facility] Address [address] [place] [address] Phone Care Team Providers Care Tools And Parts Attendant Name Role Phone Grazyna Rios MD Primary Care Provider [phone] Encounter Details Date Type Department Care Team (Late st Contact Info) Description 05/27/2013 Documentation [facility] [place] [address] [place], [place] [phone] Family Medicine, Physician [address] [place] [address] Social History Tobacco Use Types Packs/Day Years [...] on filedocumented in this encounter Care Teams Tools And Parts Attendant Relationship Specialty Start Date End Date Grazyna Rios MD [address] [place] [address] [place] [address] PCP - General 12/26/16 08/27/22 documented as of this encounter
--- OUTSIDE RECORDS SUMMARY | 2025-02-01 11:48 | XMS_ITS | Encounter Summary ---
Author Organization [facility] Address [address] [place] [address] Phone Care Team Providers Care Sanding Machine Tender Automatic Name Role Phone Grazyna Rios MD Primary Care Provider [phone] Encounter Details Date Type Department Care Team (Late st Contact Info) Description 09/27/2012 Documentation [facility] [place] [address] [place], [place] [phone] Family Medicine, Physician [address] [place] [address] Social History Tobacco Use Types Packs/Day Years [...] on filedocumented in this encounter Care Teams Sanding Machine Tender Automatic Relationship Specialty Start Date End Date Grazyna Rios MD [address] [place] [address] [place] [address] PCP - General 12/26/16 08/27/22 documented as of this encounter
--- OUTSIDE RECORDS SUMMARY | 2025-02-01 11:48 | XMS_ITS | Encounter Summary ---
Author Organization [facility] Address [address] [place] [address] Phone Care Team Providers Care High School Professional Name Role Phone Grzayna Rios MD Primary Care Provider [phone] Encounter Details Date Type Department Care Team (Late st Contact Info) Description 06/24/2012 Documentation [facility] [place] [address] [place], [place] [phone] Family Medicine, Physician [address] [place] [address] Social History Tobacco Use Types Packs/Day Years [...] on filedocumented in this encounter Care Teams High School Professional Relationship Specialty Start Date End Date Grazyna Rios MD [address] [place] [address] [place] [address] PCP - General 12/26/16 08/27/22 documented as of this encounter
--- OUTSIDE RECORDS SUMMARY | 2025-02-01 11:48 | XMS_ITS | Clinical Summary ---
Author Organization [facility] Address [address] [place] [address] Phone Care Team Providers Care Valve Seater Operator Name Role Phone Unavailable Primary Care [...] to Health Maintenance Results * Due to [facility] law, this organization might not be sharing sensitive test results. * Chlamydia and Gonorrhoea, Amplified (12/16/2011 1:11 PM EDT) URINE GC AMP PROBE NEGATIVE [facility] Comment: NO NEISSERIA GONORRHOEAE RNA DETECTED IN THIS PATIENT'S SAMPLE. (REFERENCE RANGE/NORMAL VALUE: NOT DETECTED) NOTE: THIS TEST USES EMAIL MARKETING INTERN MEDIATED AMPLIFICATION METHOD TO DETECT rRNA FROM [...] VALUE: NOT DETECTED) 12/16/2011 1:11 PM EDT [facility] - 12/16/2011 1:11 PM EDT URINE CHLAMYDIA GC AMP PROBE us Grazyna Rios MD LAB MICROBIOLOGY - GENERAL ORDER JOHN Final Result [facility] [address] [place] [address], [place] from Last 3 Months or Most Recently Relevant to Health Maintenance
== END 2025-02-01 10:13 | disposition home or self-care (01) ==
LOC: HO.HGS 09:55
PROVIDERS: PCP Internal Medicine
DX: Z90.49 Acquired absence of other specified parts of digestive tract (principal)
CPT/HCPCS: 99024

== ENCOUNTER → 2025-02-01 09:54 | Outpatient (BNVA) | payer OTHER, SELFPAY | PROVIDERS: PCP Internal Medicine | DX: Z48.815 Encounter for surgical aftercare following surgery on the digestive system (principal); Z90.49 Acquired absence of other specified parts of digestive tract | CPT/HCPCS: 99212 ==

== ENCOUNTER 2025-04-06 10:54 | Outpatient (REF) | payer OTHER, SELFPAY ==
--- NOTE | ~2025-04-06 | US_ITS ---
EXAMINATION: US DIAGNOSTIC ULTRASOUND BREAST, RIGHT CLINICAL INFORMATION: 6 month follow-up for probable complicated cyst in the right breast 9:00 4 cm from the nipple.. She has a history of multiple simple to minimally complicated cysts on prior ultrasounds. COMPARISON: Comparison is made with relevant prior imaging. TECHNIQUE: Ultrasound of the breast is performed with real-time camara scale imaging and color Doppler. FINDINGS: Targeted color Doppler ultrasound scanning at 9:00 4 cm from the nipple again demonstrates a hypoechoic oval circumscribed minimally complicated cyst measuring 4 x 5 x 3 mm. There is no internal vascular flow. Results are discussed with the patient at time of visit. US/US Breast RT Limited Mamm Only IMPRESSION: Minimally complicated cyst at 9:00 4 cm from the nipple on ultrasound. Benign. ASSESSMENT: BI-RADS 2: Benign RECOMMENDATION: Recommend clinical evaluation and followup Electronically signed by: Liana Cantor DO 04/06/2025 12:22 PM [facility] [place]
--- OUTSIDE RECORDS SUMMARY | 2025-04-06 16:28 | XMS_ITS | Encounter Summary ---
Author Organization [facility] Address [address] [place] [address] Phone Care Team Providers Care Ui Developer Name Role Phone Grazyna Rios MD Primary Care Provider [phone] Encounter Details Date Type Department Care Team (Late st Contact Info) Description 06/24/2012 Documentation [facility] [place] Family [place] [address] [place], [place] [phone] Family Medicine, Physician [address] [place] [address] Social History Tobacco Use Types Packs/Day Years [...] on filedocumented in this encounter Care Teams Ui Developer Relationship Specialty Start Date End Date Grazyna Rios MD [address] [place] [address] [place] [address] PCP - General 12/26/16 08/27/22 documented as of this encounter
--- OUTSIDE RECORDS SUMMARY | 2025-04-06 16:28 | XMS_ITS | Encounter Summary ---
Author Organization [facility] Address [address] [place] [address] Phone Care Team Providers Care General Internist And Physician Leader Name Role Phone Grazyna Rios MD Primary Care Provider [phone] Encounter Details Date Type Department Care Team (Late st Contact Info) Description 09/27/2012 Documentation [facility] [place] Family [place] [address] [place], [place] [phone] Family Medicine, Physician [address] [place] [address] Social History Tobacco Use Types Packs/Day Years [...] on filedocumented in this encounter Care Teams General Internist And Physician Leader Relationship Specialty Start Date End Date Grazyna Rios MD [address] [place] [address] [place] [address] PCP - General 12/26/16 08/27/22 documented as of this encounter
--- OUTSIDE RECORDS SUMMARY | 2025-04-06 16:28 | XMS_ITS | Clinical Summary ---
Author Organization [facility] Address [address] [place] [address] Care Team Providers Care Substation Operator Apprentice Name Role Phone Unavailable Primary Care [...] series) 11/14/2010 COVID-19 Vaccine (2023-2 5 season) 2025 HPV Vaccines (No Doses Required) Completed Pneumococcal Vaccine: Pediat naseem (0-5 Years) and At-Risk Patients (6 to 49 Years) Aged Out No longer eligible b ased on patient's age to complete this topic
--- OUTSIDE RECORDS SUMMARY | 2025-04-06 16:28 | XMS_ITS | Encounter Summary ---
Author Organization [facility] Address [address] [place] [address] Phone Care Team Providers Care Research Laboratory Manager Name Role Phone Grazyna Rios MD Primary Care Provider [phone] Encounter Details Date Type Department Care Team (Late st Contact Info) Description 05/27/2013 Documentation [facility] [place] [address] [place], [place] [phone] Family Medicine, Physician [address] [place] [address] Social History Tobacco Use Types Packs/Day Years [...] on filedocumented in this encounter Care Teams Research Laboratory Manager Relationship Specialty Start Date End Date Grazyna Rios MD [address] [place] [address] [place] [address] PCP - General 12/26/16 08/27/22 documented as of this encounter
--- OUTSIDE RECORDS SUMMARY | 2025-04-06 16:28 | XMS_ITS | Clinical Summary ---
Author Organization [facility] Address [address] [place] [address] Phone Care Team Providers Care Virtual Reality Specialist Name Role Phone Unavailable Primary Care [...] to Health Maintenance Results * Due to [facility] law, this organization might not be sharing sensitive test results. * Chlamydia and Gonorrhoea, Amplified (12/16/2011 1:11 PM EDT) URINE GC AMP PROBE NEGATIVE [facility] Comment: NO NEISSERIA GONORRHOEAE RNA DETECTED IN THIS PATIENT'S SAMPLE. (REFERENCE RANGE/NORMAL VALUE: NOT DETECTED) NOTE: THIS TEST USES HR BUSINESS PARTNER MEDIATED AMPLIFICATION METHOD TO DETECT rRNA FROM [...] OTHER AGENTS. URINE CHLAMYDIA AMP PROBE NEGATIVE [facility] Comment: NO CHLAMYDIA TRACHOMATIS RNA DETECTED IN THIS PATIENT'S SAMPLE. (REFERENCE RANGE/NORMAL VALUE: NOT DETECTED) 12/16/2011 1:11 PM EDT [facility] - 12/16/2011 1:11 PM EDT URINE CHLAMYDIA GC AMP PROBE us Grazyna Rios MD LAB MICROBIOLOGY - GENERAL ORDER JOHN Final Result [facility] [address] [place] [address], [place] from Last 3 Months or Most Recently Relevant to Health Maintenance
--- OUTSIDE RECORDS SUMMARY | 2025-04-06 16:28 | XMS_ITS | Encounter Summary ---
Author Organization [facility] Address [address] [place] [address] Phone Care Team Providers Care Career Manager Name Role Phone Grazyna Rios MD Primary Care Provider [phone] Encounter Details Date Type Department Care Team (Late st Contact Info) Description 01/01/2017 Conversion Encounter [facility] [place] [address] [place] [address] Social History Tobacco Use Types Packs/Day Years [...] on filedocumented in this encounter Care Teams Career Manager Relationship Specialty Start Date End Date Grazyna Rios MD [address] [place] [address] PCP - General 12/26/16 08/27/22 documented as of this encounter
== END 2025-04-06 10:55 | disposition home or self-care (01) ==
LOC: HO.MAMMO 10:54
PROVIDERS: PCP Internal Medicine; Visit Provider Internal Medicine
DX: N60.01 Solitary cyst of right breast (principal)
CPT/HCPCS: 76642

== ENCOUNTER → 2025-04-06 11:00 | Outpatient (BNV) | payer OTHER, SELFPAY | PROVIDERS: PCP Internal Medicine; Visit Provider Internal Medicine | DX: N60.01 Solitary cyst of right breast (principal) | CPT/HCPCS: 76642 ==